=== PATIENT | male | born 1960 | race African-American/Black ===

== ENCOUNTER 2017-10-13 00:01 | Inpatient (IN) | payer MEDICARE, OTHER ==
[2017-10-13] MEDS ORDERED: methylPREDNISolone Sod Succ/PF 125 MG/2 ML VIAL ONE (00:32)
[2017-10-13 01:27] LABS: Hematocrit 40.9 % (42.0-52.0); Mean Platelet Volume 10.4 fL (7.4-10.4); Neutrophil 61 % (42-75); Red Blood Cell (RBC) Count 4.62 mill/uL (4.70-6.10); White Blood Cell (WBC) Count 7.2 thou/uL (4.8-10.8)
[2017-10-13 01:32] LABS: ALT (SGPT) 8 U/L (8-55); AST (SGOT) 10 U/L (5-34); Alkaline Phosphatase 180 U/L (40-150); Anion Gap 21 mmol/L (10-20); BUN (Urea Nitrogen) 52 mg/dL (8.4-25.7); Bilirubin, Total 1.6 mg/dL (0.2-1.2); CK (CPK) 46 U/L (30-200); Calc. Creatinine Clearance 0 mL/min (70-130); Calcium 9.9 mg/dL (7.8-10.44); Carbon Dioxide 22 mmol/L (22-29); Chloride 100 mmol/L (98-107); Estimated GFR-MDRD 8; Globulin 4.5 g/dL (2.4-3.5); Protein, Total 8.3 g/dL (6.0-8.3)
[2017-10-13 01:34] LABS: Troponin I 0.083 ng/mL (< 0.028)
[2017-10-13] MEDS ORDERED: Furosemide 40 MG/4 ML VIAL ONE (02:17)
[2017-10-13] MEDS ORDERED: Nitroglycerin 2% Ointment 1 INCH/1 GM Packet ONE (03:39)
[2017-10-13] MEDS ORDERED: Furosemide 20 MG/2 ML VIAL ONE (03:53)
[2017-10-13 04:57] LABS: Troponin I 0.082 ng/mL (< 0.028)
[2017-10-13 05:36] VITALS: BMI 31.1
[2017-10-13 06:41] LABS: Amphetamine Not Detected (NotDetected); Methadone Not Detected (NotDetected); Methamphetamine Not Detected (NotDetected)
[2017-10-13] MEDS ORDERED: Acetaminophen 650 MG Suppository PR PRN (07:22)
[2017-10-13] MEDS ORDERED: Acetaminophen 325 MG TAB PO PRN (07:22)
[2017-10-13] MEDS ORDERED: Nitroglycerin 0.4 MG TAB (25 Tab Bottle) PO PRN (07:22)
[2017-10-13] MEDS ORDERED: Dextrose 50% Abboject 50 ML SYRINGE SLOW IVP PRN (07:43)
[2017-10-13] MEDS ORDERED: HumaLOG 300 UNITS/3 ML VIAL SC PRN (07:43)
[2017-10-13] MEDS ORDERED: Dextrose 5% in Water 1,000 ML IV PRN (07:43)
--- NOTE | 2017-10-13 08:07 | RAD ---
EXAM: ONE VIEW CHEST: COMPARISON: 06/26/17. HISTORY: Chest pain. FINDINGS: Portable upright chest demonstrates a left-sided transvenous pacemaker. The ventricular lead is inco mpletely evaluated. Heart is enlarged. The pulmonary vessels are slightly prominent. Costophrenic angles are clear. No mass. No consolidation. No pneumothorax or osseous abnormalities. Stent projects over the right arm. IMPRESSION: Cardiomegaly. No evidence of congestive heart failure. POS: [facility]
--- NOTE | 2017-10-13 08:18 | HP ---
PRIMARY CARE PHYSICIAN: None. TERRITORY ACCOUNT MANAGER: Dr. Brandon August. CHIEF COMPLAINT: Chest pain. HISTORY OF PRESENT ILLNESS: Mr. Guy is a pleasant 57-year-old gentleman who was seen at [facility] on 10/13/2017. He is a vague historian. He reports missing hemodialysis yesterday. He also reports having chest pa in that started yesterday morning. He reports that it is over the left side of his chest, sharp, 10/ 10 at its worst, nonradiating, on and off, no known aggravating or relieving factors, accompanied by shortness of breath, not accompanied by nausea, vomiting or lightheadedness. REVIEW OF SYSTEMS: The following complete review of systems was negative, unless otherwise mentioned in the HPI or below: Constitutional: Weight loss or gain, sense of well-being, ability to conduct usual activities, exerc ise tolerance. Skin/Breast: Rash, itching, changes in hair growth or loss, nail changes, breast lumps, tenderness, swelling, nipple discharge. Eyes: Vision, double vision, tearing, blind spots, pain. ENT/Mouth: Headaches (location, time of onset, duration, precipitating factors), vertigo, lightheade dness, injury. Vision, double vision, tearing, blind spots, pain, nose bleeding, colds, obstruction, discharge, dental difficulties, gingival bleeding, dentures, neck stiffness, pain, tenderness, masses in thyroid or other areas. Cardiovascular: Precordial pain, substernal distress, palpitations, syncope, dyspnea on exertion, or thopnea, nocturnal paroxysmal dyspnea, edema, cyanosis, hypertension, heart murmurs, varicosities, ph lebitis, claudication. Respiratory: Pain, shortness of breath, wheezing, stridor, cough, hemoptysis, fever or night sweats. Gastrointestinal: Poor appetite, dysphagia, indigestion, abdominal pain, heartburn, eructation, naus ea, vomiting, hematemesis, jaundice, constipation, or diarrhea, abnormal stools (kan-colored, tarry, bloody, greasy, foul smelling), flatulence, hemorrhoids, recent changes in bowel habits. Genitourinary: Urgency, frequency, dysuria, nocturia, hematuria, polyuria, oliguria, unusual (or celia nge in) color of urine, stones, hesitancy, change in size of stream, dribbling, acute retention or in continence, libido, potency. Musculoskeletal: Pain, swelling, redness or heat of muscles or joints, limitation, of motion, muscul ar weakness, atrophy, cramps. Neurologic/Psychiatric: Convulsions, paralyses, tremor, incoordination, paresthesias, difficulties w ith memory of speech, sensory or motor disturbances, or muscular coordination (ataxia, tremor), emoti onal problems, anxiety, depression, previous psychiatric care, unusual perceptions, hallucinations. Allergy/Immunologic: Skin rash, anemia, bleeding tendency, polydipsia, polyuria, intolerance to heat or cold. PAST MEDICAL HISTORY: Significant for end-stage renal disease, on hemodialysis Tuesday, Tuesday, ; diabetes mellitus; hypertension; gout; obesity; obstructive sleep apnea syndrome; cerebrovascul ar disease; and COPD. PAST SURGICAL HISTORY: Significant for AICD placement and AV fistula. FAMILY HISTORY: Significant for hypertension and diabetes. SOCIAL HISTORY: The patient reports smoking more than 1 pack of cigarettes a day. He also reports u sing recreational drugs. When asked which ones, he responds "all of them". He reports occasional al cohol use. ALLERGIES: He has no known drug allergies. CURRENT MEDICATIONS: Metformin 1000 mg 2 times a day, nadolol 40 mg daily, Zofran p.r.n., spironolac tone 50 mg daily, Lasix 20 mg 2 times a day, Xifaxan 550 mg daily, lactulose 2 times a day, glipizide 10 mg daily, quinapril 40 mg daily. PHYSICAL EXAMINATION: GENERAL: Mr. Guy is awake and alert, not in acute distress. He is obese. VITAL SIGNS: Blood pressure is 161/91, pulse is 79, he is breathing at rate of 22 and saturating 100 % on 2 liters of oxygen. He is afebrile. EYES: No scleral icterus. No conjunctival pallor. ENT: Moist mucosal membranes, no oropharyngeal erythema or exudates. NECK: Supple, nontender, normal range of movement. Trachea is midline. RESPIRATORY: Accessory muscles of breathing are not active. Chest wall movements are symmetric bila terally. LUNG: Reveals a few bibasilar crackles. CARDIOVASCULAR: S1 and S2 are heard, regular. Peripheral pulses are palpable. No carotid bruit, no pericardial rub. ABDOMEN: Distended, nontender, bowel sounds heard, no hepatomegaly, no splenomegaly. NEUROLOGIC: Cranial nerves II through XII are intact. Deep tendon reflexes are 2+. MUSCULOSKELETAL: Power is 5/5 in all 4 extremities. Bilateral lower extremity edema. SKIN: No rashes or subcutaneous nodules. PSYCHIATRIC: Normal mood, normal affect, patient is oriented to person and place, not to time. LYMPHATIC: No cervical lymphadenopathy. LABORATORY DATA AND IMAGING: Mr. Guy's labs and investigations were reviewed. I reviewed his e lectrocardiogram, which shows normal sinus rhythm, no ST changes to suggest an acute coronary syndrom e. I also reviewed his chest x-ray, which shows mild interstitial edema. Laboratory investigation s how normal white count, normocytic anemia with hemoglobin 13.5, thrombocytopenia with platelet count 114,000, last known platelet count 100,000 on 06/26/2017, normal electrolytes, elevated blood urea ni trogen at 52, elevated creatinine at 8.35, elevated total bilirubin 1.6, normal AST, normal ALT, elev ated alkaline phosphatase 180, last known alkaline phosphatase level 91 on 06/26/2017, indeterminate troponin I of 0.082, elevated BNP of 1808 and urine toxicology screen positive for cocaine metabolite s. ASSESSMENT AND PLAN: Mr. Guy is a pleasant 57-year-old gentleman who was seen at [facility] on 10/13/2017. His problem list includes: 1. Chest pain: The etiology is unclear. We will admit Mr. Guy to the hospital for telemetry m onitoring on observation status. We will check stress test. 2. Shortness of breath: Most likely secondary to volume overload. We will consult Nephrology for h emodialysis. 3. End-stage renal disease on hemodialysis. We will consult Nephrology for maintenance dialysis, ila evans has missed hemodialysis. 4. Tobacco abuse: Patient has been counseled regarding tobacco cessation. We will start him on charlee otine replacement therapy. 5. Recreational drug abuse: Patient has been counseled regarding cessation of recreational drugs. 6. Diabetes mellitus. Continue home medications, start Accu-Cheks and insulin sliding scale. 7. Hypertension: Monitor vital signs, titrate antihypertensives as needed. Many thanks for allowing me to participate in your patient's care. Please feel free to contact me wi th any questions or concerns. LEVEL OF RISK: High. LEVEL OF COMPLEXITY: High.
[2017-10-13 08:26] LABS: Troponin I 0.067 ng/mL (< 0.028)
[2017-10-13] MEDS: Nicotine 21 MG PATCH TD SCH (13:08)
[2017-10-13] MEDS: Heparin 5,000 UNITS/ML VIAL SC SCH ×3 (13:08→20:11)
[2017-10-14 05:03] LABS: #Basophils 0.1 thou/uL (0.0-0.2); #Eosinphils 0.1 thou/uL (0.0-0.7); #Lymphocytes 0.9 thou/uL (1.20-3.40); #Monocytes 0.9 thou/uL (0.11-0.59); #Neutrophils 4.6 thou/uL (1.40-6.50); %Eosinophils 1.7 % (0.0-10.0); %Lymphocytes 14.1 % (21.0-51.0); Hematocrit 38.9 % (42.0-52.0); Mean Platelet Volume 10.5 fL (7.4-10.4); Red Blood Cell (RBC) Count 4.42 mill/uL (4.70-6.10); White Blood Cell (WBC) Count 6.6 thou/uL (4.8-10.8)
[2017-10-14 05:12] LABS: Anion Gap 17 mmol/L (10-20); BUN (Urea Nitrogen) 47 mg/dL (8.4-25.7); Calc. Creatinine Clearance 15 mL/min (70-130); Calcium 9.5 mg/dL (7.8-10.44); Carbon Dioxide 25 mmol/L (22-29); Chloride 98 mmol/L (98-107); Estimated GFR-MDRD 10
--- NOTE | 2017-10-14 05:53 | CON ---
DATE OF CONSULTATION: 10/13/2017 CONSULTING PHYSICIAN: Brandon August MD REQUESTING PHYSICIAN: Giovanni Goodrich M.D. REASON FOR CONSULTATION: The need for maintenance hemodialysis. IMPRESSION: 1. End-stage renal disease, hemodialysis dependent Tuesday, Tuesday, Tuesday, skipped his dialysis y . 2. Chest pain likely in the context of missed dialysis plus or minus substance abuse. 3. Hypertension. PLAN: 1. The patient to be dialyzed today and then subsequently by tomorrow. He will revert back to his n ormal schedule of Tuesday, Tuesday, and Tuesday. 2. Counseling on the need to avoid illicit drug use, though the patient denied use of the cocaine th at he tested positive to. HISTORY OF PRESENT ILLNESS: A 57-year-old gentleman with end-stage renal disease, hemodialysis depen alexandra, who presented here with chest pain. The patient missed his dialysis yesterday because of issue with transportation. The patient at this time on history taking does not have any serious new compl aint. The patient is, therefore, to be dialyzed with ultrafiltration as tolerated by hemodynamics. PAST MEDICAL HISTORY: Significant for end-stage renal disease, hemodialysis dependent, CVA with resi dual expressive aphasia, hypertension, gout, obesity, obstructive sleep apnea, COPD. MEDICATIONS: Reviewed as documented on [employer]. FAMILY HISTORY: Not significantly related to the presenting illness. ALLERGIES: No known drug allergies. SOCIAL HISTORY: Significant for tobacco use. The patient denies illicit drug use. He denies the us e of . The patient tested positive to cocaine. REVIEW OF SYSTEMS: As documented in the body of the history. All the other systems reviewed were fo und not to be significantly related to the presenting illness. PHYSICAL EXAMINATION: GENERAL: The patient was found not to be in any obvious distress. VITAL SIGNS: Noted with the following vital signs, afebrile, temperature 97.5, pulse 82, respiratory rate 16, O2 sat 96% with blood pressure 168/92. HEENT: Unremarkable. Moist oral mucosa. Neck was supple. No conjunctival injection, no icterus. CARDIOVASCULAR SYSTEM: First and second heart sounds were heard. RESPIRATORY SYSTEM: Clear to auscultation. DIGESTIVE SYSTEM: Revealed a benign abdomen with positive bowel sounds. EXTREMITIES: No peripheral edema. SKIN: No new gross rash. LYMPHATICS: No peripheral lymphadenopathy. SUMMARY: A 57-year-old gentleman with end-stage renal disease, hemodialysis dependent, who presented here with chest pain status post missed dialysis session. Thank you for this consultation. We will follow with you.
--- NOTE | 2017-10-14 08:59 | CT ---
CT OF BRAIN PERFORMED WITHOUT CONTRST ENHANCEMENT: HISTORY: Altered mental status. COMPARISON: A 01/16/11 exam. FINDINGS: There is mild ventricular and sulcal prominence. There is some encephalomalacia change in the left p osterior frontoparietal temporal region which appears fairly stable as compared to the prior exam. T here are no signs for intracerebral hemorrhage or extraaxial fluid collection. There appears to be a small old infarct in the left occipital region. IMPRESSION: Left-sided encephalomalacia change and old-appearing bilateral lacunar infarct stable. No acute intr acranial process. POS: [facility]
[2017-10-14] MEDS ORDERED: Prevnar 13-Val Conj/PF 0.5 ML SYRINGE IM ONE (09:00)
[2017-10-14] MEDS ORDERED: FLU VACC QS2017-18 36 mo. & older 0.5 ML SYRINGE IM ONE (09:00)
[2017-10-14] MEDS: Nicotine 21 MG PATCH TD SCH (12:47)
[2017-10-14] MEDS: Heparin 5,000 UNITS/ML VIAL SC SCH ×2 (12:47→21:19)
--- NOTE | 2017-10-14 13:19 | NM ---
MYOCARDIAL PERFUSION SCAN WITH SPECT IMAGING: HISTORY: Chest pain. Examination was performed using 29.7 mCi 99m Technetium sestamibi on the stress and 11 on the resting images. This shows a slightly dilated ventricle. There is evidence for some apical ischemic change . WALL MOTION: Severe hypokinesis is noted. LEFT VENTRICULAR EJECTION FRACTION: The calculated left ventricular ejection fraction was 19%. IMPRESSION: Severe global hypokinesis with findings that are suspicious for apical ischemic change extending mini kirit into the anterior wall. Left ventricular ejection fraction was 19%. Please correlate with ech ocardiogram. POS: [facility]
--- NOTE | 2017-10-14 14:53 | PDOC.PN ---
- Subjective Encounter Start Date: 10/14/17 Encounter Start Time: 14:51 Pt seen for followup re; chest pain. reports on and off chest pain, denies nausea, vomiting or diarrhea. No fevers or chills. - Objective MAR Reviewed: Yes Vital Signs & Weight: Vital Signs (12 hours) Temp Pulse Resp BP Pulse Ox 10/14/17 07:50 98.0 F 72 16 10/14/17 07:30 98.0 F 72 16 133/83 100 10/14/17 04:39 97.8 F 79 18 138/82 97 Weight Weight 211 lb 4.8 oz I&O: 10/13/17 10/14/17 10/15/17 06:59 06:59 06:59 Intake Total 100 Output Total 225 2500 Balance -125 -2500 Result Diagrams: 10/14/17 04:41 10/14/17 04:41 Additional Labs: Accuchecks 10/14/17 10/14/17 10/14/17 07:37 04:41 00:20 POC Glucose 93 141 H 137 H 10/13/17 10/13/17 20:43 17:43 POC Glucose 113 H 207 H EKG Reviewed by me: Yes (Tele: NSR) Phys Exam - Physical Examination Constitutional: NAD HEENT: PERRLA, moist MMs, sclera anicteric, oral pharynx no lesions Neck: no nodes, no JVD, supple, full ROM Respiratory: no wheezing, no rales, no rhonchi, clear to auscultation bilateral Cardiovascular: RRR, no rub Gastrointestinal: soft, non-tender, no distention, positive bowel sounds Musculoskeletal: pulses present, edema present Neurological: non-focal, normal sensation, moves all 4 limbs Lymphatic: no nodes Psychiatric: normal affect Deviation from normal: Oriented to person and place, not to time Skin: no rash, normal turgor, cap refill <2 seconds Dx/Plan (1) Chest pain Code(s): R07.9 - CHEST PAIN, UNSPECIFIED Status: Acute (2) Cocaine abuse Code(s): F14.10 - COCAINE ABUSE, UNCOMPLICATED Status: Chronic (3) ESRD on hemodialysis Code(s): N18.6 - END STAGE RENAL DISEASE; Z99.2 - DEPENDENCE ON RENAL DIALYSIS Status: Chronic (4) Essential hypertension Code(s): I10 - ESSENTIAL (PRIMARY) HYPERTENSION Status: Chronic (5) COPD exacerbation Code(s): J44.1 - CHRONIC OBSTRUCTIVE PULMONARY DISEASE W (ACUTE) EXACERBATION Status: Chronic (6) Tobacco abuse Code(s): Z72.0 - TOBACCO USE Status: Chronic - Plan DVT proph w/heparin * . Stress test showing global hypokinesis, low EF. Will order 2D echo and consult cardiology. I assessed him earlier for ? AMS. Neuro exam was nonfocal, CT report noted. Continue accuchecks, insulin. Monitor vital signs, titrate antihypertensives as needed. Continue nicotine replacement therapy. Pt counseled re: tobacco and recreational drug use cessation. Review of Systems - Review of Systems Constitutional: Other. negative: Fever, Chills, Sweats, Weakness, Malaise Respiratory: SOB with Excertion. negative: Cough, Dry, Shortness of Breath, Hemoptysis, Pleuritic Pain, Sputum, Wheezing Cardiovascular: Chest Pain. negative: Palpitations, Orthopnea, Paroxysmal Noc. Dyspnea, Edema, Light Headedness Gastrointestinal: negative: Nausea, Vomiting, Abdominal Pain, Diarrhea, Constipation, Melena, Hematochezia Genitourinary: negative: Dysuria, Frequency, Incontinence, Hematuria, Retention - Medications/Allergies Allergies/Adverse Reactions: Allergies Allergy/AdvReac Type Severity Reaction Status Date / Time No Known Drug Allergies Allergy Verified 10/13/17 05:54 Medications: Current Medications Acetaminophen (Tylenol) 650 mg PO Q4H PRN PRN Reason: Headache/Fever or Pain Acetaminophen (Tylenol) 650 mg SC Q4H PRN PRN Reason: Headache/Fever or Pain Dextrose/Water (Dextrose 50%) 25 gm SLOW IVP PRN PRN PRN Reason: Hypoglycemia Glucagon (Glucagon) 1 mg IM PRN PRN PRN Reason: Hypoglycemia Heparin Sodium (Porcine) (Heparin) 5,000 units SC BID [facility] Last Admin: 10/14/17 12:47 Dose: Not Given Dextrose/Water (D5w) 1,000 mls @ 0 mls/hr IV .Q0M PRN; As Directed PRN Reason: Hypoglycemia Insulin Human Lispro (Humalog) 0 units SC .MILD SLIDING SCALE PRN PRN Reason: Mild Correctional Scale Last Admin: 10/13/17 18:02 Dose: 4 unit Nicotine (Nicoderm Patch) 21 mg TD Q24HR [facility] Last Admin: 10/14/17 12:47 Dose: Not Given Nitroglycerin (Nitrostat) 0.4 mg PO Q5MIN PRN PRN Reason: Chest Pain
[2017-10-14] MEDS ORDERED: Regadenoson 0.4 MG/5 ML SYRINGE ONE (16:43)
--- NOTE | 2017-10-14 19:32 | CON ---
DATE OF CONSULTATION: 10/14/2017 DATE OF ADMISSION: 10/13/2017 INDICATION FOR CONSULTATION: A 57-year-old patient with severe cardiomyopathy, underwent a stress te st today after he had some chest discomfort and was found to have severe decrease in left ventricular systolic function, ejection fraction of 19% with global hypokinesis and apical possible apical ische baldo. This gentleman has end-stage renal disease on hemodialysis, he misses out since yesterday. Whe n he misses dialysis it becomes volume overload. He developed chest discomfort. He does have a hist ory of coronary artery disease; however, he underwent cardiac catheterization in 2009 which showed an ejection fraction of 20-25% with a 50% and 70% stenosis in the left anterior descending artery, 70% and 80% stenosis in the left circumflex and 60% stenosis in the right coronary artery. He was evalua kaveh at that time by CT Surgery and was deemed not a candidate to undergo bypass surgery. He then had an echocardiogram in 2011 which showed a normal ejection fraction, but then again in 05/2017 of this year, he had an ejection fraction again by echocardiogram 20- 25% with left atrial dilatation, moder ate mitral and tricuspid valve regurgitation. At this time, the ejection fraction by nuclear study i s 19%. Echocardiogram is pending. He has just finished his dialysis at this time and he says it joselyn nly when he gets volume overload, he does get some chest discomfort. He also was found to be positiv e for cocaine and has a history of illicit drug use. He does have a history of hypertension. This a ppears to be stable at this time. He also had a CT of the head which showed no acute process, but do es have evidence of old bilateral lacunar infarcts. He said he often has chest discomfort, but mainl y was associated with volume overload prior to undergoing his dialysis. PAST MEDICAL HISTORY: Significant for CVAs in 2006, end-stage renal disease for which he is on hemod ialysis, hypertension, gout, he had an AV fistula of the right arm placed. He has had old bilateral lacunar infarcts. He has obstructive sleep apnea, COPD, obesity. He has had ventricular tachycardia for which he underwent an AICD implant. He has coronary artery disease as noted above, diabetes, hy percholesterolemia, and benign prostatic hypertrophy. SOCIAL HISTORY: Unfortunately, he continues to smoke I believe. He has illicit drug use. FAMILY HISTORY: Positive for coronary artery disease. ALLERGIES: None. MEDICATIONS PRIOR TO ADMISSION: Included simvastatin, ranitidine, nortriptyline, insulin, allopurino l, furosemide, Coreg, isosorbide mononitrate, Velphoro, folic acid with vitamin B complex, Cardura an d prednisone. ALLERGIES: None. REVIEW OF SYSTEMS: He says he is almost blind. He has shortness of breath and chest discomfort as n oted above. Otherwise, his review of system is unremarkable. He pretty much stays at home and is re latively inactive at this time. PHYSICAL EXAMINATION: GENERAL: Reveals an elderly gentleman who appears actually older than his stated age. VITAL SIGNS: Blood pressure 133/83, heart rate is 72 and regular. He is afebrile, respiratory rate 16. HEENT: Shows head to be normocephalic and atraumatic. I did not hear any carotid bruits at this spring e. There is no obvious JVD. He is sitting upright after dialysis; however. CHEST: Clear to auscultation. I do not hear any rales, rhonchi or wheezing. CARDIOVASCULAR: Reveals a regular rate and rhythm. I did not hear any significant murmurs, heaves, thrills, bruits or rubs. He has a well healed surgical incision on left infraclavicular area after A ICD implant. ABDOMEN: Soft and nontender. Positive bowel sounds are present. EXTREMITIES: Showed no clubbing or cyanosis. I cannot palpate popliteal or pedal pulses. NEUROLOGIC: The patient is somewhat slow to answer questions due to his previous CVAs and he is over all with generalized fatigue and weakness. SKIN: At this time is warm and dry except lower extremities which appear to be cool. LABORATORY AND DIAGNOSTIC STUDY: EKG shows a normal sinus rhythm with a right bundle branch block and no acute changes. Cardiac enzym es show troponin I of 0.083, which is now decreased down the 0.067. His creatinine was 7.14, hemoglo bin 12.7, WBC is 6.6. Potassium was 4.8. Chest x-ray shows some cardiomegaly but no signs of conges tive heart failure. IMPRESSION: 1. Chest pain in this gentleman with end-stage renal disease which is a frequent problem for him whe n he is volume overloaded. He admits that he has chest discomfort, but no significant EKG changes. The enzymes most likely are elevated due to demand ischemia, which would not be unusual in this gentl eman with severe three-vessel coronary artery disease for which he has been deemed not a candidate fo r bypass surgery. It is unlikely he will be a candidate also for any type of intervention, we would continue medical management. We will try to manage his medications as much as possible, but most lik taj he would just need to be more compliant with his dialysis and volume overloaded and to prevent vo lume overload. 2. History of coronary disease, which appears to be overall relatively stable despite having severe three-vessel coronary artery disease. 3. History of cerebrovascular accident in the past, making it difficult for the patient to communica te. 4. History of hypertension which is under relatively good control at this time. 5. Chronic obstructive pulmonary disease. This is to be followed by the primary care service. 6. Diabetes. This also appears to be relatively well controlled with a blood sugar of 141. 7. History of possible ischemia. Again, this would not be unusual in this patient with severe three -vessel coronary artery disease which underwent cardiac catheterization 7 years ago. We will continu e his medical management at this time. We will need to perhaps modify his medications as much as pos yusuf. I can possibly increase his nitroglycerin or his long-acting nitrates if it all possible. I do not know whether or not he would be a candidate for Ranexa. If he would be able to afford this me dication or not or whether he will be compliant with taking it. As long as he remains chest pain renetta e after his dialysis, then he would be able to most likely be discharge to home within the next 24 ho urs. I would suggest he follow Dr. Tellez within the next 1-2 months.
--- NOTE | 2017-10-14 23:50 | PRG ---
DATE OF SERVICE: 10/14/2017 SUBJECTIVE: The patient was seen and examined today at dialysis with no new complaint and noted with the following vital signs. PHYSICAL EXAMINATION: VITAL SIGNS: Afebrile, respiratory rate of 18, O2 saturation of 96%, blood pressure 138/82. HEENT EXAMINATION: Unremarkable with moist oral mucosa. Neck was supple. No conjunctival injection or icterus. CARDIOVASCULAR SYSTEM: First and second heart sounds were heard. RESPIRATORY SYSTEM: Clear to auscultation. DIGESTIVE SYSTEM: Revealed a benign abdomen with positive bowel sounds. EXTREMITIES: No peripheral edema. SKIN EXAMINATION: No new gross rash. LYMPHATICS: No peripheral lymphadenopathy. IMPRESSION: 1. End-stage renal disease, hemodialysis dependent. 2. Cardiomyopathy, query cause. 3. Hypertension. 4. Illicit drug abuse. PLAN: 1. The patient counseled on the need to discontinue illicit drug use. the patient denies use of it. 2. Renal replacement therapy (hemodialysis) as by the patient's schedule. 3. From the renal standpoint, the patient is good for discharge.
[2017-10-15 05:18] LABS: #Basophils 0.1 thou/uL (0.0-0.2); #Eosinphils 0.9 thou/uL (0.0-0.7); #Monocytes 0.7 thou/uL (0.11-0.59); #Neutrophils 3.6 thou/uL (1.40-6.50); %Basophils 0.8 % (0.0-1.0); %Eosinophils 13.9 % (0.0-10.0); %Lymphocytes 15.6 % (21.0-51.0); %Monocytes 11.7 % (0.0-10.0); Hematocrit 38.9 % (42.0-52.0); Mean Platelet Volume 10.6 fL (7.4-10.4); Red Blood Cell (RBC) Count 4.42 mill/uL (4.70-6.10); White Blood Cell (WBC) Count 6.2 thou/uL (4.8-10.8)
[2017-10-15 05:40] LABS: Anion Gap 15 mmol/L (10-20); BUN (Urea Nitrogen) 34 mg/dL (8.4-25.7); Calc. Creatinine Clearance 19 mL/min (70-130); Calcium 9.4 mg/dL (7.8-10.44); Carbon Dioxide 28 mmol/L (22-29); Chloride 100 mmol/L (98-107); Estimated GFR-MDRD 13
[2017-10-15] MEDS ORDERED: Carvedilol 6.25 MG TAB PO SCH (09:00)
--- NOTE | 2017-10-15 09:08 | PRG ---
DATE OF SERVICE: 10/15/2017 SUBJECTIVE: Mr. Guy states he is not breathing very well. He has no chest pain. PHYSICAL EXAMINATION: VITAL SIGNS: His blood pressure is high at 152/87, pulse 80, it is regular. LUNGS: Clear but the respiratory rate is elevated mildly. CARDIAC: Normal S1 and normal S2. ABDOMEN: Soft, nontender. EXTREMITIES: There is only mild edema. ASSESSMENT: 1. Congestive heart failure, systolic, chronic. 2. End-stage renal disease. 3. Hypertension. 4. Coronary artery disease. PLAN: 1. Carvedilol. 2. Add hydralazine. 3. He is on subcutaneous heparin. 4. Dialysis again tomorrow. 5. Begin aspirin.
[2017-10-15] MEDS: Aspirin 81 mg Enteric Coated Tablet PO SCH (09:23)
[2017-10-15] MEDS: Heparin 5,000 UNITS/ML VIAL SC SCH ×2 (09:23→20:55)
[2017-10-15] MEDS: Nicotine 21 MG PATCH TD SCH (09:24)
--- NOTE | 2017-10-15 11:08 | PDOC.PN ---
- Subjective Encounter Start Date: 10/15/17 Encounter Start Time: 07:20 Pt seen for followup re: chronic systolic CHF. Reports SOBOE. No nausea or vomiting. Chest pain better. - Objective MAR Reviewed: Yes Vital Signs & Weight: Vital Signs (12 hours) Temp Pulse Resp BP Pulse Ox 10/15/17 08:45 97.8 F 75 16 10/15/17 08:05 97.8 F 75 16 139/73 100 10/15/17 04:00 98.6 F 80 20 152/87 H 100 Weight Weight 185 lb I&O: 10/14/17 10/15/17 10/16/17 06:59 06:59 06:59 Intake Total 360 Output Total 2500 Balance -2500 360 Result Diagrams: 10/15/17 04:53 10/15/17 04:53 Additional Labs: Accuchecks 10/15/17 10/14/17 10/14/17 06:04 20:51 16:47 POC Glucose 90 144 H 88 EKG Reviewed by me: Yes (Tele: NSR) Phys Exam - Physical Examination Constitutional: NAD HEENT: moist MMs, oral pharynx no lesions Neck: supple Bibasal crackles Cardiovascular: RRR Gastrointestinal: soft, non-tender Musculoskeletal: pulses present, edema present Neurological: moves all 4 limbs Lymphatic: no nodes Psychiatric: normal affect Skin: no rash Dx/Plan (1) Chronic systolic heart failure Code(s): I50.22 - CHRONIC SYSTOLIC (CONGESTIVE) HEART FAILURE Status: Chronic (2) ESRD on hemodialysis Code(s): N18.6 - END STAGE RENAL DISEASE; Z99.2 - DEPENDENCE ON RENAL DIALYSIS Status: Chronic (3) Essential hypertension Code(s): I10 - ESSENTIAL (PRIMARY) HYPERTENSION Status: Chronic (4) Cocaine abuse Code(s): F14.10 - COCAINE ABUSE, UNCOMPLICATED Status: Chronic (5) COPD exacerbation Code(s): J44.1 - CHRONIC OBSTRUCTIVE PULMONARY DISEASE W (ACUTE) EXACERBATION Status: Chronic (6) Tobacco abuse Code(s): Z72.0 - TOBACCO USE Status: Chronic (7) Chest pain Code(s): R07.9 - CHEST PAIN, UNSPECIFIED Status: Resolved - Plan PT/OT, out of bed/ambulate, DVT proph w/heparin * . Appreciate cardiology input. Pt is on betablocker, not on ACEI/ARB due to renal failure. Dialysis per nephrology service. Continue nicotine replacement therapy. Likely home 1-2 days. Review of Systems - Review of Systems Constitutional: negative: Fever, Chills, Sweats, Weakness, Malaise Cardiovascular: negative: Chest Pain, Palpitations, Orthopnea, Paroxysmal Noc. Dyspnea, Edema, Light Headedness Gastrointestinal: negative: Nausea, Vomiting, Abdominal Pain, Diarrhea, Constipation, Melena, Hematochezia - Medications/Allergies Allergies/Adverse Reactions: Allergies Allergy/AdvReac Type Severity Reaction Status Date / Time No Known Drug Allergies Allergy Verified 10/13/17 05:54 Medications: Current Medications Acetaminophen (Tylenol) 650 mg PO Q4H PRN PRN Reason: Headache/Fever or Pain Acetaminophen (Tylenol) 650 mg UT Q4H PRN PRN Reason: Headache/Fever or Pain Aspirin (Ecotrin) 81 mg PO DAILY [facility] Last Admin: 10/15/17 09:23 Dose: 81 mg Atorvastatin Calcium (Lipitor) 20 mg PO HS [facility] Carvedilol (Coreg) 6.25 mg PO BID-[facility] Dextrose/Water (Dextrose 50%) 25 gm SLOW IVP PRN PRN PRN Reason: Hypoglycemia Glucagon (Glucagon) 1 mg IM PRN PRN PRN Reason: Hypoglycemia Heparin Sodium (Porcine) (Heparin) 5,000 units SC BID [facility] Last Admin: 10/15/17 09:23 Dose: 5,000 units Hydralazine HCl (Apresoline) 25 mg PO BID [facility] Hydralazine HCl (Apresoline) 25 mg PO 1700 [facility] Stop: 10/15/17 21:00 Dextrose/Water (D5w) 1,000 mls @ 0 mls/hr IV .Q0M PRN; As Directed PRN Reason: Hypoglycemia Insulin Human Lispro (Humalog) 0 units SC .MILD SLIDING SCALE PRN PRN Reason: Mild Correctional Scale Last Admin: 10/13/17 18:02 Dose: 4 unit Nicotine (Nicoderm Patch) 21 mg TD Q24HR [facility] Last Admin: 10/15/17 09:24 Dose: 21 mg Nitroglycerin (Nitrostat) 0.4 mg PO Q5MIN PRN PRN Reason: Chest Pain
[2017-10-15] MEDS ORDERED: hydrALAZINE 25 MG TAB PO SCH (17:00)
[2017-10-15] MEDS: Carvedilol 6.25 MG TAB PO SCH (17:42)
[2017-10-15] MEDS ORDERED: Atorvastatin Calcium 20 MG TAB PO SCH (21:00)
[2017-10-16 05:43] LABS: Anion Gap 16 mmol/L (10-20); BUN (Urea Nitrogen) 48 mg/dL (8.4-25.7); Calc. Creatinine Clearance 14 mL/min (70-130); Calcium 9.4 mg/dL (7.8-10.44); Carbon Dioxide 30 mmol/L (22-29); Chloride 95 mmol/L (98-107); Estimated GFR-MDRD 10
[2017-10-16 05:45] LABS: #Eosinphils 1.3 thou/uL (0.0-0.7); #Lymphocytes 0.7 thou/uL (1.20-3.40); #Monocytes 0.6 thou/uL (0.11-0.59); #Neutrophils 2.5 thou/uL (1.40-6.50); %Basophils 0.7 % (0.0-1.0); %Eosinophils 24.3 % (0.0-10.0); %Lymphocytes 14.2 % (21.0-51.0); Hematocrit 40.1 % (42.0-52.0); Mean Platelet Volume 11.2 fL (7.4-10.4); Red Blood Cell (RBC) Count 4.54 mill/uL (4.70-6.10); White Blood Cell (WBC) Count 5.2 thou/uL (4.8-10.8)
--- NOTE | 2017-10-16 07:12 | PRG ---
DATE OF SERVICE: 10/15/2017 SUBJECTIVE: The patient was seen and examined today with no new complaints and noted with the follow ing. OBJECTIVE: VITAL SIGNS: Afebrile with a temperature of 97.8, pulse 75, respiratory rate of 16, blood pressure 1 39/73 with O2 sat 100%. HEENT: Unremarkable with moist oral mucosa. No conjunctival injection or icterus. NECK: Supple. CARDIOVASCULAR SYSTEM: First and second heart sounds were heard. RESPIRATORY SYSTEM: Clear to auscultation. DIGESTIVE SYSTEM: Reviewed a benign abdomen with positive bowel sounds. EXTREMITIES: No peripheral edema. SKIN: No new gross rash. LYMPHATICS: No peripheral lymphadenopathy. IMPRESSION: 1. End-stage renal disease, hemodialysis dependent. 2. Chest pain, which has since resolved, status post hemodialysis with ultrafiltration. PLAN: 1. From the renal standpoint, the patient is good for discharge. 2. If patient remains here till Tuesday, the patient will undergo hemodialysis; otherwise from the re nal standpoint, the patient is good for discharge.
[2017-10-16] MEDS: Carvedilol 6.25 MG TAB PO SCH (08:54)
[2017-10-16] MEDS: Heparin 5,000 UNITS/ML VIAL SC SCH (08:54)
[2017-10-16] MEDS: Aspirin 81 mg Enteric Coated Tablet PO SCH (08:54)
[2017-10-16] MEDS: Nicotine 21 MG PATCH TD SCH (08:58)
[2017-10-16] MEDS ORDERED: hydrALAZINE 25 MG TAB PO SCH (09:00)
--- NOTE | 2017-10-16 09:17 | PRG ---
DATE OF SERVICE: 10/16/2017 SUBJECTIVE: Mr. Guy is doing better today, looks brighter, he is breathing much easier. PHYSICAL EXAMINATION: VITAL SIGNS: Blood pressure 129/81, pulse 60, regular. LUNGS: Clear. CARDIAC: Normal S1 and normal S2. ABDOMEN: Soft and nontender. ASSESSMENT: 1. Congestive heart failure, systolic, acute on chronic, improved. 2. End-stage renal disease, unchanged. 3. Hypertension, improved. PLAN: Okay with me to be released home. Follow up with Dr. Tellez as an outpatient.
[2017-10-16 12:21] VITALS: BP 126/71; TEMP 97.5
--- NOTE | 2017-10-16 14:52 | DIS ---
DATE OF ADMISSION: 10/13/2017 DATE OF DISCHARGE: 10/16/2017 PRIMARY CARE PHYSICIAN: Dr. Deric Llamas. DISCHARGE DIAGNOSES: 1. Chest pain. 2. Acute on chronic congestive heart failure, systolic. CONSULTATIONS DURING THIS HOSPITALIZATION: Cardiology, Dr. Marie and Nephrology, Dr. Brandon winters. CONDITION OF PATIENT AT THE TIME OF DISCHARGE: Stable. I assess Mr. Guy on the day of discharg e. He denies any chest pain or shortness of breath. He denies any fevers or chills. PHYSICAL EXAMINATION: VITAL SIGNS: Stable. HEART: S1 and S2 are heard, regular. LUNGS: Clear to auscultation bilaterally. DISCHARGE MEDICATIONS: Allopurinol 100 mg daily, aspirin 81 mg daily, atorvastatin 20 mg at bedtime, Coreg 6.25 mg 2 times a day, doxazosin 8 mg daily, folic acid/vitamin B complex 1 tablet daily, Lasi x 40 mg 2 times a day, NPH insulin 10 units in the evening and 20 units in the morning, Imdur 60 mg d aily, Nicotine patch 21 mg daily, Nortriptyline 25 mg daily, ranitidine 150 mg 2 times a day, sucrofe rric oxyhydroxide 500 mg 3 times a day. HOSPITAL COURSE: Mr. Guy is a pleasant 57-year-old gentleman who was admitted to [facility] on 10/13/2017 for chest discomfort after missing hemodialysis. He was seen by Ne phrology Service. He underwent maintenance hemodialysis. Because of concern over mental status edwards ges, he had a CT scan of the brain, which was unremarkable, done without contrast. Nuclear stress test on 10/14/2017 showed severe global hypokinesis with findings suspicious for apica l ischemic changes extending minimally into the anterior wall, with left ventricular ejection fractio n of 19%. A 2D echocardiogram done on 10/15/2017 showed severely increased left ventricular size, wi th ejection fraction estimated at 20%-25%. He also had moderate to severe mitral regurgitation. He was seen by Cardiology Service. He has been started on aspirin and statin. At the time of admission, his urine drug screen was positive for cocaine metabolites. He has been ad vised to stop cocaine use and tobacco use. He is advised to follow up with his primary care provider in 3-5 days. He is also advised to follow up with his internet media planner, Dr. Tellez as outpatient. On the day of discharge, he has a white count of 5200, hemoglobin 12.8, platelet count 116,000. Sodi um 136, potassium 4.9, and creatinine 7.03. Many thanks for allowing me to participate in your patient's care. Please feel free to contact me wi th any questions or concerns. DISCHARGE DESTINATION: Home. TOTAL AMOUNT OF TIME SPENT COORDINATING THIS DISCHARGE: 33 minutes.
== END 2017-10-16 16:28 | disposition home or self-care (01) | DRG 640 ==
LOC: ERS 00:01 → 2SW 03:30 → 2NO 10-14 15:18
PROVIDERS: ADMIT Internal Medicine; ATTEND Internal Medicine
PROC: 5A1D70Z Performance of Urinary Filtration, Intermittent, Less than 6 Hours Per Day (ICD-10-PCS; principal; 2017-10-13)
DX: E87.70 Fluid overload, unspecified (principal); N18.6 End stage renal disease; I50.23 Acute on chronic systolic (congestive) heart failure; I42.9 Cardiomyopathy, unspecified; E11.22 Type 2 diabetes mellitus with diabetic chronic kidney disease; J44.1 Chronic obstructive pulmonary disease with (acute) exacerbation; I13.2 Hypertensive heart and chronic kidney disease with heart failure and with stage 5 chronic kidney disease, or end stage renal disease; Z99.2 Dependence on renal dialysis; Z91.15 Patient's noncompliance with renal dialysis; Z86.73 Personal history of transient ischemic attack (TIA), and cerebral infarction without residual deficits; Z95.810 Presence of automatic (implantable) cardiac defibrillator; Z72.0 Tobacco use; I34.0 Nonrheumatic mitral (valve) insufficiency; F14.10 Cocaine abuse, uncomplicated
CPT/HCPCS: 36415; 36416; 70450; 71010; 78452; 80048; 80053; 80306; 82550; 82553; 83880; 84484; 85025; 87340; 90935; 93005; 93017; 93306; 93798; 94640; 94760; 96361; 96374; 96375; 96376; A9500; G0257; J1644; J1940; J2785; J2930; J7620

== ENCOUNTER 2017-10-23 22:10 | Observation (INO) | payer MEDICARE, OTHER ==
[2017-10-23 23:02] LABS: #Basophils 0.1 thou/uL (0.0-0.2); #Eosinphils 0.4 thou/uL (0.0-0.7); #Lymphocytes 0.5 thou/uL (1.20-3.40); #Monocytes 0.5 thou/uL (0.11-0.59); #Neutrophils 4.5 thou/uL (1.40-6.50); %Basophils 1.5 % (0.0-1.0); %Eosinophils 5.9 % (0.0-10.0); %Monocytes 8.3 % (0.0-10.0); Hematocrit 41.5 % (42.0-52.0); Mean Platelet Volume 11.6 fL (7.4-10.4); Red Blood Cell (RBC) Count 4.75 mill/uL (4.70-6.10)
[2017-10-23 23:19] LABS: ALT (SGPT) 7 U/L (8-55); AST (SGOT) 9 U/L (5-34); Alkaline Phosphatase 157 U/L (40-150); Anion Gap 21 mmol/L (10-20); BUN (Urea Nitrogen) 82 mg/dL (8.4-25.7); Bilirubin, Total 1.6 mg/dL (0.2-1.2); Calc. Creatinine Clearance 0 mL/min (70-130); Calcium 9.4 mg/dL (7.8-10.44); Carbon Dioxide 16 mmol/L (22-29); Chloride 108 mmol/L (98-107); Estimated GFR-MDRD 7; Globulin 4.4 g/dL (2.4-3.5)
[2017-10-23 23:29] LABS: Troponin I 0.142 ng/mL (< 0.028)
[2017-10-24] MEDS ORDERED: Insulin Regular 300 UNITS/3 ML VIAL ONE ×2 (00:26→02:14)
[2017-10-24] MEDS ORDERED: Dextrose 50% Abboject 50 ML SYRINGE ONE ×2 (00:26→02:14)
[2017-10-24 01:30] LABS: Troponin I 0.154 ng/mL (< 0.028)
[2017-10-24 01:44] LABS: Anion Gap 22 mmol/L (10-20); BUN (Urea Nitrogen) 87 mg/dL (8.4-25.7); Calc. Creatinine Clearance 0 mL/min (70-130); Calcium 9.1 mg/dL (7.8-10.44); Carbon Dioxide 15 mmol/L (22-29); Chloride 111 mmol/L (98-107); Estimated GFR-MDRD 6
[2017-10-24] MEDS ORDERED: Ondansetron HCl/PF 4 MG/2 ML Vial IVP PRN (05:08)
[2017-10-24] MEDS ORDERED: Acetaminophen 325 MG TAB PO PRN ×2 (05:08→05:14)
[2017-10-24] MEDS ORDERED: Ondansetron ODT 4 MG TAB SL PRN (05:08)
[2017-10-24] MEDS ORDERED: Sodium Chloride 0.9% 1,000 ML IV SCH (05:08)
[2017-10-24] MEDS ORDERED: HYDROcodone/Acetaminophen 10/325 mg Tablet PO PRN (05:14)
[2017-10-24] MEDS ORDERED: Dextrose 50% Abboject 50 ML SYRINGE SLOW IVP PRN (05:14)
[2017-10-24] MEDS ORDERED: Dextrose 5% in Water 1,000 ML IV PRN (05:14)
[2017-10-24] MEDS ORDERED: Ondansetron ODT 4 MG TAB PO PRN (05:14)
[2017-10-24] MEDS ORDERED: HumaLOG 300 UNITS/3 ML VIAL SC PRN (05:14)
[2017-10-24] MEDS ORDERED: HYDROcodone/Acetaminophen 5/325 mg Tablet PO PRN (05:14)
[2017-10-24 05:34] VITALS: BMI 29.3
[2017-10-24] MEDS: Sodium Chloride 0.9% 1,000 ML IV SCH (05:46)
--- NOTE | 2017-10-24 06:00 | HP ---
PRIMARY CARE PHYSICIAN: Dr. Deric Llamas PRIMARY FOREST NURSERY SUPERVISOR: Dr. Brandon August CHIEF COMPLAINT: Diarrhea and nausea. HISTORY OF PRESENT ILLNESS: Mr. Guy is a 57-year-old male with a history of end-stage r enal disease on dialysis, hypertension, diabetes and CHF [facility] without vomiting and diarrhea. Basically he has felt nauseated for about 48 hours, but had 24 hours now of persistent diarrhea. He was able to go to dialysis on Tuesday one day prior to this beginning. The patient continued to have diarrheal bowel movements and felt weak so he presented to the emergenc y department. He complained of having some chest pain, sharp and stabbing to the chest just today on ly. The patient was recently admitted a couple weeks ago for chest pain, he underwent a stress test that was abnormal and was seen by Dr. Marie and by Dr. Martinez. Due to multiple comorbidities, the patient was felt not to be a candidate for intervention and is being medically managed. In the emergency department, he was noted to have a potassium of 5.2. Labs were otherwise okay. Rep eat BMP showed a potassium up to 5.8. Troponin I went from 0.14 to 0.15. We were called for admissi on. PAST MEDICAL HISTORY: 1. Congestive heart failure, last EF of 15-20%. 2. Diabetes mellitus type 2. 3. Hyperlipidemia. 4. Hypertension. 5. End-stage renal disease, on hemodialysis Tuesday, Tuesday, and Tuesday. 6. Cerebral vascular disease with history of stroke. PAST SURGICAL HISTORY: 1. Right arm fistula. 2. AICD placement. HOME MEDICATIONS: 1. Metformin 1000 mg p.o. b.i.d. 2. Nadolol 40 mg p.o. daily. 3. Zofran ODT 2 mg p.o. b.i.d. 4. Aldactone 50 mg p.o. daily. 5. Lasix 20 mg p.o. b.i.d. 6. Xifaxan 550 mg p.o. daily. 7. Lactulose 10 mg p.o. b.i.d. 8. Glipizide 10 mg daily. 9. Quinapril 40 mg daily. ALLERGIES: NKDA. FAMILY HISTORY: Negative for clotting or bleeding disorder, no immune dysfunction. SOCIAL HISTORY: Currently negative for habits x3. REVIEW OF SYSTEMS: A 10-point review of systems was performed and is negative for all systems except as stated as per HPI. PHYSICAL EXAMINATION: VITAL SIGNS: Temperature 98.4, pulse 81, blood pressure 133/77, respiratory rate 22, satting 94% on room air. GENERAL: He is awake. He is alert. He is oriented x3. He is somnolent, but arousable Amer [place] male who appears age appropriate and appears to be in no acute distress. HEENT: Normocephalic, atraumatic. Pupils equal, reactive bilaterally. He has some slight proptosis . Mucous membranes are moist, without visible lesions or thrush. NECK: Supple. He has no lymphadenopathy, JVD or thyromegaly. LUNGS: Clear anteriorly, posteriorly he had some fine crackles that seem to clear with deep inspirat ion. CARDIOVASCULAR: Normal S1, S2, no S3, S4. He is normal cardiac and regular, a 3/6 holosystolic murm ur and a quiet 2/6 systolic ejection murmur. ABDOMEN: Soft, is nontender, nondistended, no masses, no organomegaly. No rebound, rigidity or guar ding with normoactive bowel sounds present in all 4 quadrants. EXTREMITIES: Show no cyanosis, no clubbing, no edema. SKIN: Dry and warm. He has no skin lesions noted. No rashes noted. MUSCULOSKELETAL: Shows large joints to be normal to inspection. He has no palpable joint effusions, no inflammation. NEUROLOGIC: Cranial nerves II-XII are grossly intact. He has no focal neurologic deficits. Speech pattern was difficult to assess as he was not talking much and was sleepy. LABORATORY DATA: CMP showed sodium 140, potassium 5.2 with repeat showing 5.8, chloride 108, bicarb is 16 with repeat being 15, BUN of 82, creatinine 9.72. Liver functions are fairly normal. Total bilirubin 1.6. The CBC showed a white count of 6.0, hemogl obin 13.8, hematocrit 41.5, and platelet count low at 93,000. Troponin I was noted to initially be 0.142 with repeat of 0.154. RADIOGRAPHIC STUDIES: He had a stress test 10/14/2017 that did show some areas of ischemia at the ap ex, possibly. He also underwent cardiology consultation 10/14/2017 and 10/15/2017. A recent echocardiogram showed an EF of 15-20% with multiple valvular abnormalities. ASSESSMENT AND PLAN: 1. Infectious diarrhea. We will get stool studies including fecal leukocytes, stool for culture, O&P , Campe, and a norovirus. If negative, certainly can give Imodium. 2. End-stage renal disease on hemodialysis. We will consult Dr. August for dialysis today. The p atient has a low bicarbonate and high potassium. Certainly could benefit from dialysis even if he do es have any fluid removal. 3. Moderate dehydration: The patient appears to be volume down. We will give gentle IV fluids at 5 0 mL per hour until seen by Renal. 4. Diabetes mellitus type 2, we will place the patient on a sliding scale insulin for now. We will hold his metformin for the time being. 5. Cerebrovascular disease, currently asymptomatic. Place the patient on observation with telemetry. We will consult Nephrology, get serial cardiac biom arkers, and he just had a recent echo and a stress test. I am not going to consult Cardiology at thi s time as I do feel like he is in florid heart failure. I think it is more of an infectious diarrhea with dehydration.
[2017-10-24 06:38] LABS: Troponin I 0.134 ng/mL (< 0.028)
[2017-10-24] MEDS ORDERED: FLU VACC QS2017-18 36 mo. & older 0.5 ML SYRINGE IM ONE (09:00)
[2017-10-24 12:45] LABS: Troponin I 0.144 ng/mL (< 0.028)
[2017-10-24] MEDS: Famotidine 20 MG TAB PO SCH (14:08)
--- NOTE | 2017-10-24 14:21 | PDOC.PN ---
- Subjective Encounter Start Date: 10/24/17 Encounter Start Time: 14:18 Subjective: still has diarrhea, no abd pain or blood in stools - Objective Resuscitation Status: Resuscitation Status FULL:Full Resuscitation MAR Reviewed: Yes Vital Signs & Weight: Vital Signs (12 hours) Temp Pulse Resp BP Pulse Ox 10/24/17 08:05 97.7 F 66 20 10/24/17 07:47 97.7 F 66 20 92/50 L 96 10/24/17 05:34 98.7 F 69 20 10/24/17 05:14 98 10/24/17 04:45 98.7 F 69 20 127/69 100 Weight Admit Weight 204 lb 12.8 oz Weight 204 lb 12.8 oz I&O: 10/23/17 10/24/17 10/25/17 06:59 06:59 06:59 Intake Total 240 384 Balance 240 384 Result Diagrams: 10/23/17 22:48 10/24/17 01:04 Additional Labs: Accuchecks 10/24/17 10/24/17 06:43 06:00 POC Glucose 77 58 L* Phys Exam - Physical Examination Constitutional: NAD Neck: no JVD Respiratory: clear to auscultation bilateral Cardiovascular: RRR Gastrointestinal: soft, non-tender, positive bowel sounds Musculoskeletal: edema present Dx/Plan (1) Diarrhea Code(s): R19.7 - DIARRHEA, UNSPECIFIED Status: Acute (2) Acidosis, metabolic Code(s): E87.2 - ACIDOSIS Status: Acute (3) Hyperkalemia Code(s): E87.5 - HYPERKALEMIA Status: Acute (4) DM type 2 causing ESRD Code(s): E11.22 - TYPE 2 DIABETES MELLITUS W DIABETIC CHRONIC KIDNEY DISEASE; N18.6 - END STAGE RENAL DISEASE Status: Acute (5) ESRD on hemodialysis Code(s): N18.6 - END STAGE RENAL DISEASE; Z99.2 - DEPENDENCE ON RENAL DIALYSIS Status: Chronic (6) Essential hypertension Code(s): I10 - ESSENTIAL (PRIMARY) HYPERTENSION Status: Chronic (7) Tobacco abuse Code(s): Z72.0 - TOBACCO USE Status: Chronic - Plan diarrhea AGUDELO in progress -: cont HD, monitor lytes -: selected home meds * .
--- NOTE | 2017-10-25 01:37 | CON ---
DATE OF CONSULTATION: 10/24/2017 CONSULTING PHYSICIAN: Brandon August M.D. REQUESTING PHYSICIAN: Darryn Daniels MD REASON FOR CONSULTATION: The need for maintenance hemodialysis. IMPRESSION: 1. End-stage renal disease, hemodialysis dependent, Tuesday, Tuesday, and Tuesday. 2. Metabolic acidosis in the context of renal failure and persistent diarrhea. 3. Hyperkalemia. PLAN: 1. The patient to be dialyzed today in accordance with his schedule of Tuesday, Tuesday and Tuesday and afterwards will continue on Tuesday, Tuesday, Tuesday schedule. HISTORY OF PRESENT ILLNESS: This is a 57-year-old gentleman who recently left the hospital, presente d here with nausea and diarrhea and noted to be metabolically acidotic as well as hyperkalemic, need for continued maintenance hemodialysis to address these issues, the reason for this renal consultati on. PAST MEDICAL HISTORY: Significant for end-stage renal disease, hemodialysis dependent, hypertension, congestive heart failure, type 2 diabetes, dyslipidemia, CVA. MEDICATIONS: Reviewed and as documented on Gratci. ALLERGIES: Still remains the same as documented in the recent visit. SOCIAL HISTORY: Still remains the same as documented in the recent visit. REVIEW OF SYSTEMS: As documented in the body of the history. All the other systems were reviewed an d were found not to be significantly related to the presenting illness. LABORATORY INVESTIGATION: Significant for potassium of 5.8, bicarbonate of 15, creatinine 10.16, and BUN of 87. PHYSICAL EXAMINATION: GENERAL: The patient was found to be ill-looking, noted with the following vital signs. VITAL SIGNS: Afebrile with temperature 98.4, pulse 78, respiratory rate of 20, O2 saturation of 100% with a blood pressure of 155/89. HEENT: Unremarkable. CARDIOVASCULAR: First and second heart sounds were heard. RESPIRATORY SYSTEM: Clear to auscultation. DIGESTIVE SYSTEM: Revealed a benign abdomen with positive bowel sounds. EXTREMITIES: No peripheral edema. SKIN: No new gross rash. LYMPHATICS: No peripheral lymphadenopathy. SUMMARY: A 57-year-old gentleman with end-stage renal disease who presented here with nausea and catrachito rrhea, noted to be acidotic and hyperkalemic. Thank you for this consultation. We will follow with you.
[2017-10-25] MEDS: Sodium Chloride 0.9% 1,000 ML IV SCH (04:35)
[2017-10-25 05:52] LABS: Anion Gap 17 mmol/L (10-20); BUN (Urea Nitrogen) 42 mg/dL (8.4-25.7); Calc. Creatinine Clearance 16 mL/min (70-130); Calcium 8.8 mg/dL (7.8-10.44); Carbon Dioxide 23 mmol/L (22-29); Chloride 103 mmol/L (98-107); Estimated GFR-MDRD 11; Magnesium 1.9 mg/dL (1.6-2.6); Phosphorus 4.8 mg/dL (2.3-4.7)
[2017-10-25 06:15] LABS: Mean Platelet Volume 11.4 fL (7.4-10.4); Red Blood Cell (RBC) Count 4.51 mill/uL (4.70-6.10)
[2017-10-25 06:16] LABS: Band 5 % (5-11); Neutrophil 49 % (42-75); Reactive Lymphocytes 1 % (0-10)
[2017-10-25] MEDS: Famotidine 20 MG TAB PO SCH (08:53)
--- NOTE | 2017-10-25 10:41 | DIS ---
TRANSFER OF CARE NOTE DATE OF ADMISSION: 10/24/2017 DATE OF DISCHARGE: 10/25/2017 DISCHARGE DISPOSITION: Home. FINAL DIAGNOSES: 1. Diarrhea, resolved. 2. Uremia. 3. End-stage renal disease on hemodialysis. 4. Diabetes mellitus type 2 with end-stage renal disease. 5. Cardiomyopathy. 6. Hyperkalemia. 7. Acidosis. 8. Coronary artery disease. DISCHARGE MEDICATIONS: Cardura 8 mg a day, Coreg 6.25 mg twice a day, atorvastatin 20 mg a day, aspi rin 81 mg a day, allopurinol 100 mg a day, ranitidine 150 mg twice a day, Pamelor 25 mg at bedtime, i sosorbide 60 mg a day, NPH 70/30 20 units subcu in the morning and 10 units in the p.m., furosemide 4 0 mg twice a day. ALLERGIES: None. PENDING AT TIME OF DISCHARGE: Nothing. CODE STATUS: FULL. DIET: Renal. CONSULTATIONS: Dr. Brandon August PROCEDURES: Emergent hemodialysis. HOSPITAL COURSE: The patient presented to the Emergency Room complaining of diarrhea, found to be hy perkalemic and acidotic with markedly elevated BUN and creatinine. Despite his insistence, he had deras d dialysis the previous day. LABORATORY: Potassium 5.8, CO2 15, creatinine 2.16, BUN 87. The patient underwent hemodialysis to. His potassium was 3.9, CO2 is 23, creatinine 6.37, BUN 42. He is being discharged home to keep his hemodialysis appointment tomorrow. He has been advised to se e his PCP in follow up. CODE STATUS: Full. PENDING AT THE TIME OF DISCHARGE: None. Because of his diarrhea, multiple stool studies were done including Clostridium difficile, Campylobac ter, E. coli, they were all negative. I am quite confident that his diarrhea was related to a uremic syndrome at this point.
[2017-10-25 11:51] VITALS: BP 164/94; TEMP 98
[2017-10-30 00:07] LABS: Norovirus GI Negative (Negative); Norovirus GII Negative (Negative)
== END 2017-10-25 13:37 | disposition home or self-care (01) ==
LOC: ERS 22:10 → 2SE 10-24 02:50
PROVIDERS: ADMIT Internal Medicine Infectious Disease; ATTEND Internal Medicine Infectious Disease
DX: R19.7 Diarrhea, unspecified (principal); E11.22 Type 2 diabetes mellitus with diabetic chronic kidney disease; I13.2 Hypertensive heart and chronic kidney disease with heart failure and with stage 5 chronic kidney disease, or end stage renal disease; I50.9 Heart failure, unspecified; N18.6 End stage renal disease; I42.9 Cardiomyopathy, unspecified; E87.5 Hyperkalemia; E87.2 Acidosis; I25.10 Atherosclerotic heart disease of native coronary artery without angina pectoris; R11.0 Nausea; F17.200 Nicotine dependence, unspecified, uncomplicated; Z79.82 Long term (current) use of aspirin; Z79.4 Long term (current) use of insulin; Z79.899 Other long term (current) drug therapy; Z99.2 Dependence on renal dialysis; Z95.810 Presence of automatic (implantable) cardiac defibrillator; Z86.73 Personal history of transient ischemic attack (TIA), and cerebral infarction without residual deficits
CPT/HCPCS: 80048 ×2; 80053; 82553 ×3; 82962 ×2; 83630; 83735; 84100; 84484 ×3; 85025 ×2; 87015; 87045; 87046; 87206; 87449; 87798 ×2; 87899 ×2; 93005; 96361 ×2; 96374; 96375; 99285; G0378 ×2; 36415; 36416; 90935; G0257; J1815

== ENCOUNTER 2017-11-12 10:33 | Inpatient (IN) | payer MEDICARE, OTHER ==
--- NOTE | 2017-11-12 12:01 | CT ---
CT OF THE ABDOMEN AND PELVIS WITHOUT IV CONTRAST: INDICATION: A 57-year-old male with groin pain. COMPARISON: Prior exam dated 05/20/16. FINDINGS: Lung bases are clear. There is moderate cardiomegaly. There is partial visualization of an AICD. There are numerous gallstones within the gallbladder which appear similar to the prior exam. There has been interval development of mild ascites. There is mild to moderate anasarca. The spleen is enlarged measuring 13.7 cm, which his stable to the prior exam. The unopacified pancreas and adrenal glands are unremarkable. The atrophic-appearing kidneys are sim ilar-appearing. The prominent vascular calcifications involving the abdominopelvic vasculature are similar. The prostate is enlarged measuring 8.3 cm. This is stable to the prior exam. The unopacified large and small bowel are within normal limits. There is scattered degenerative and osteoarthritic change. No definite cute osseous abnormality is e vident. IMPRESSION: 1. Interval development of mild ascites and mild to moderate anasarca. 2. Stable splenomegaly. 3. Stable cholelithiasis. 4. Stable chronic findings as above. POS: [facility]
[2017-11-12 12:41] LABS: Lactic Acid - Sepsis 2.9 mmol/L (0.5-2.2)
[2017-11-12 12:41] LABS: Bilirubin Negative (Negative); Blood, Urine Small (Negative); Glucose, Urine (Dipstick) Negative (Negative); Ketone, Urine Negative (Negative); Nitrite Negative (Negative); Protein, Urine (Dipstick) 100 mg/dL (Neg-Trace)
[2017-11-12 12:42] LABS: Hematocrit 42.7 % (42.0-52.0); Mean Platelet Volume 12.1 fL (7.4-10.4); Red Blood Cell (RBC) Count 4.88 mill/uL (4.70-6.10); White Blood Cell (WBC) Count 6.3 thou/uL (4.8-10.8)
[2017-11-12 12:43] LABS: Prothrombin Time 16.5 SEC (12.0-14.7)
[2017-11-12 12:44] LABS: PTT 40.7 SEC (22.9-36.1)
[2017-11-12 12:45] LABS: ALT (SGPT) 10 U/L (8-55); AST (SGOT) 16 U/L (5-34); Alkaline Phosphatase 233 U/L (40-150); Anion Gap 20 mmol/L (10-20); BUN (Urea Nitrogen) 32 mg/dL (8.4-25.7); Bilirubin, Total 2.2 mg/dL (0.2-1.2); CK (CPK) 44 U/L (30-200); Calc. Creatinine Clearance 0 mL/min (70-130); Calcium 10.6 mg/dL (7.8-10.44); Carbon Dioxide 25 mmol/L (22-29); Chloride 97 mmol/L (98-107); Estimated GFR-MDRD 12; Globulin 4.7 g/dL (2.4-3.5); Lipase 15 U/L (8-78); Protein, Total 8.7 g/dL (6.0-8.3)
[2017-11-12 12:49] LABS: Troponin I 0.143 ng/mL (< 0.028)
[2017-11-12 12:53] LABS: Bacteria/HPF None Seen HPF (None Seen); Hyaline Casts/LPF 0-3 HYALINE CAST LPF (0-3 Hyaline); Squamous Epithelial 0-3 HPF (0-3)
[2017-11-12 13:03] LABS: Band 2 % (5-11); Neutrophil 57 % (42-75); Target Cells SLIGHT = 2-5 cells (100X) (0-1/hpf)
[2017-11-12] MEDS ORDERED: Morphine 4 MG/ML VIAL ONE (13:09)
[2017-11-12] MEDS ORDERED: HYDROcodone/Acetaminophen 5/325 mg Tablet PO PRN (13:55)
[2017-11-12] MEDS ORDERED: Acetaminophen 325 MG TAB PO PRN (13:55)
[2017-11-12] MEDS ORDERED: Guaifenesin DM 100-10/5 ML UDCUP PO PRN (13:55)
--- NOTE | 2017-11-12 13:55 | RAD ---
AP VIEW OF THE CHEST: INDICATION: Inguinal pain or groin pain. FINDINGS: No acute cardiopulmonary abnormality is evident. Mild cardiomegaly is stable. AICD is similar. IMPRESSION: Stable cardiomegaly and automatic implantable cardioverter/defibrillator. POS: [facility]
[2017-11-12] MEDS ORDERED: valACYclovir 500 MG TAB PO SCH ×2 (14:00→21:00)
[2017-11-12] MEDS ORDERED: Piperacillin/Tazobactam 2.25 GM in Sodium Chloride 0.9% 100 ML IVPB SCH (14:00)
[2017-11-12] MEDS ORDERED: Morphine 4 MG/ML VIAL SLOW IVP PRN (14:07)
[2017-11-12 14:54] LABS: Acetaminophen Less than 6.0 mcg/mL (10.0-30.0); Salicylate Less than 8.0 mg/dL (15.0-30.0)
[2017-11-12 17:07] LABS: Troponin I 0.145 ng/mL (< 0.028)
--- NOTE | 2017-11-12 17:08 | HP ---
REASON FOR ADMISSION: Severe left gluteal pain due to herpes zoster, abdominal pain. HISTORY OF PRESENT ILLNESS: Please note the majority of this history is obtained by my talking to the ER physician, prior records as patient is a very poor historian. He has also likely had prior CVA with difficulty articulating in addition to being a very poor historian. He complains of left gluteal pain. He has pain radiating to his leg. He states he had dialysis yesterday which was a 3-hour session as far as he can remember. In the ER, the patient was found to have had a creatinine of 6, lactic acid of 2.9 with abdominal tenderness on clinical exam. He is being admitted to telemetry. The patient has known history of ischemic cardiomyopathy with severe 3-vessel disease which is not amenable for intervention including surgery. He has had abdominal and pelvic CAT scan done in the ER which shows mild to moderate anasarca with mild ascites. This is when compared to prior CAT scan done in 2015 of April. PAST SURGICAL HISTORY: Severe ischemic cardiomyopathy with three-vessel disease and a known ejection fraction of around 15%-20%, noncompliance with hemodialysis and medication, stress test done in 09/2017 showed severe global hypokinesis with suspicion for the apical ischemic changes extending minimally into the anterior wall, had echo done in the same admission which showed EF of 20%-25% with moderate to severe mitral regurgitation and severe tricuspid regurgitation. Diabetes mellitus type 2, hypertension, dyslipidemia, end-stage renal disease on hemodialysis on Tuesday, Tuesday, and Tuesday, history of CVA, right upper extremity dialysis access procedures and AICD. PERSONAL HISTORY: The patient smokes off and on, but does not abuse alcohol. Also, there are reports of him using recreational drugs. FAMILY HISTORY: Has history of hypertension and diabetes in the family per prior records. CLINICAL IMPRESSION AND PLAN: The patient is on allopurinol 100 mg p.o. daily, aspirin 81 mg p.o. daily, atorvastatin 20 mg p.o. at bedtime, Coreg 6.25 mg p.o. twice daily, Cardura 8 mg p.o. daily, Lasix 40 mg twice daily, NPH 70/30 insulin 10 units subcutaneous q.p.m. and 20 subcu q.a.m., Imdur 60 mg p.o. daily , Pamelor 25 mg p.o. q.p.m., ranitidine 150 mg p.o. twice daily, Velphoro 500 mg p.o. 3 times daily. ALLERGIES: No known drug allergies. REVIEW OF SYSTEMS: The following complete review of systems was negative, unless otherwise mentioned in the HPI or below: Constitutional: Weight loss or gain, ability to conduct usual activities. Skin: Rash, itching. Eyes: Double vision, pain. ENT/Mouth: Nose bleeding, neck stiffness, pain, tenderness. Cardiovascular: Palpitations, dyspnea on exertion, orthopnea. Respiratory: Shortness of breath, wheezing, cough, hemoptysis, fever or night sweats. Gastrointestinal: Poor appetite, abdominal pain, heartburn, nausea, vomiting, constipation, or diarrhea. Genitourinary: Urgency, frequency, dysuria, nocturia. Musculoskeletal: Pain, swelling. Neurologic/Psychiatric: Anxiety, depression. Allergy/Immunologic: Skin rash, bleeding tendency. PHYSICAL EXAMINATION: GENERAL: The patient is a 57-year-old male who is currently in mild distress from pain in his left gluteal area. NECK: Supple, no elevated JVD. HEENT: Extraocular muscles intact. It is unclear if patient is able to see well. Oral cavity mucous membranes are moist. No exudates or congestion. CARDIOVASCULAR: S1, S2 heard. Regular rhythm. RESPIRATORY: Air entry 1+ bilaterally. Scattered rhonchi plus, no rales. ABDOMEN: Soft. There is voluntary guarding of the abdomen. No rigidity as such. Bowel sounds are heard. The patient has vesicles suggestive of zoster in his left gluteal area. EXTREMITIES: No peripheral edema or calf tenderness. VASCULAR SYSTEM: Peripheral pulses 1+ bilateral. No ischemic ulcerations or gangrene. CENTRAL NERVOUS SYSTEM: No gross focal deficits seen. Patient is alert, awake , but is not fully oriented. PSYCHIATRIC: The patient's mood is euthymic. No hallucinations or delusions at present. LABORATORY AND X-RAY FINDINGS: White count 6.3, H&H 14 and 42, platelet count is 83 with 57% neutrophils. PT, INR, PTT are 16, 1.3 and 40. Potassium 5.2, serum bicarbonate 25, BUN 32, creatinine 6.0. Glucose 107, calcium is 10.6, T bili is 2.2, AST 16, ALT 10, alkaline phosphatase 233, albumin is 4.0. Troponin I 0.14, lipase is 15. Chest x-ray done shows cardiomegaly with AICD seen, no acute infiltrate. CT of the abdomen without IV contrast done showed mild ascites and mild to moderate anasarca, stable splenomegaly, stable cholelithiasis. Prostate is enlarged measuring 8.3 cm. Large and small bowels were within normal limits. EKG done shows normal sinus rhythm at 84 beats per minute. There is RBBB seen. CLINICAL IMPRESSION AND PLAN: The patient will be admitted to telemetry for left gluteal pain due to herpes zoster. He also has abdominal voluntary guarding and the reason for this is unclear at present. He apparently had hemodialysis yesterday per patient. Again, the patient is a very poor historian and we will confirm the same with his senior dentist, Dr. Taylor. His abdominal CAT scan did not reveal any small-bowel obstruction or perforated viscus. We will place him on valacyclovir 500 mg p.o. daily for his zoster. We will continue all his home medications including Coreg, aspirin, Lipitor, allopurinol, Cardura, Imdur, and Pamelor as before. 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 He will also be on Premont and morphine p.r.n. for pain for now. The patient has known history of ischemic cardiomyopathy with nonoperable three-vessel disease. Likely his LFTs are elevated due to passive congestion versus volume overload versus a questionable history of alcohol usage and drug usage. We will obtain urine drug screen as well. We will continue to closely monitor him on telemetry given his age of 57 years with multiple medical issues and being a poor historian as well. MTDD
[2017-11-12 17:18] VITALS: BMI 28.7
[2017-11-12 20:29] LABS: Troponin I 0.147 ng/mL (< 0.028)
[2017-11-12] MEDS: Carvedilol 3.125 MG TAB PO SCH (21:35)
[2017-11-12] MEDS: Atorvastatin Calcium 20 MG TAB PO SCH (21:35)
[2017-11-12] MEDS: Gabapentin 100 MG CAP PO SCH (21:35)
[2017-11-12] MEDS: Nortriptyline HCl 25 MG CAP PO SCH (21:35)
[2017-11-12] MEDS: Heparin 5,000 UNITS/ML VIAL SC SCH (21:36)
--- NOTE | 2017-11-12 23:22 | CON ---
HISTORY OF PRESENT ILLNESS: Mino Guy is a 57-year-old Black male well known to me. I last s aw him in 11/2014 for repair of transposition of the cephalic vein fistula right upper arm due to ane urysmal dilatation. In 01/2011, I placed a right arm primary AV fistula slow outflow basilic vein un dergoing a basilic vein transposition fistula right arm. I then performed aneurysmal dilatation repa ir of the aneurysm present. I have not seen him since that time. The patient has severe cardiomyopa thy, sleep apnea, use of BiPAP at home, and dialyzes under the direction of Dr. Taylor, Nephrolog y. He has a defibrillator in left subclavian vein. The patient reported to the emergency room today , evaluated by an emergency room physician and admitted by hospitalist. He has severe left gluteal p ain due to herpes zoster. The patient's mental status is compromised. Apparently, the patient was d ialyzed yesterday. He was felt to have abdominal tenderness, underwent a CAT scan noting ascites and cholelithiasis. There is no mention of biliary ductal dilatation. He has a past history of imaging studies, CAT scans demonstrating cholelithiasis, but this has been asymptomatic. The patient has an ischemic cardiomyopathy with end-stage coronary artery disease nonamenable to parish scularization. He has a defibrillator in left subclavian vein. Echocardiogram recently 09/2017 show ed severe global hypokinesis and stress test suggested ischemia, but again noted, he is not amenable to revascularization. He has diabetes mellitus type 2, hypertension, dyslipidemia, on hemodialysis M , Tuesday, and Tuesday, history of stroke. TOBACCO: Use occasionally. ALCOHOL: None. MEDICATIONS: Allopurinol, aspirin, atorvastatin, Coreg, Cardura, Lasix, insulin 10 units subcu p.m., 20 units subcu a.m., Imdur 60 daily, Pamelor 25 mg at bedtime, ranitidine daily, Velphoro 500 mg p.o . 3 times a day. ALLERGIES: None. REVIEW OF SYSTEMS: The patient is not alert enough to obtain a review of systems. PHYSICAL EXAMINATION: VITAL SIGNS: 97.5, 90, 151/87. LUNGS: Clear to auscultation. CARDIAC: Regular rate and rhythm without murmur or gallop. Defibrillator, left chest. ABDOMEN: Soft, no peritoneal signs. He has slight distention and positive fluid wave. EXTREMITIES: Fistula, right upper arm. ASSESSMENT AND PLAN: Ascites related to ischemic cardiomyopathy and end-stage renal disease. He is undergoing dialysis now. I do not identify any surgical problem and will follow him with you.
[2017-11-13 02:58] LABS: Amphetamine Not Detected (NotDetected); Methadone Not Detected (NotDetected); Methamphetamine Not Detected (NotDetected)
[2017-11-13 06:15] LABS: Anion Gap 15 mmol/L (10-20); BUN (Urea Nitrogen) 29 mg/dL (8.4-25.7); Calc. Creatinine Clearance 18 mL/min (70-130); Calcium 9.9 mg/dL (7.8-10.44); Carbon Dioxide 27 mmol/L (22-29); Chloride 98 mmol/L (98-107); Estimated GFR-MDRD 13
[2017-11-13 06:44] LABS: Hematocrit 36.3 % (42.0-52.0); Mean Platelet Volume 7.7 fL (7.4-10.4); Metamyelocyte 1 % (0-0); Neutrophil 55 % (42-75); Reactive Lymphocytes 2 % (0-10); Red Blood Cell (RBC) Count 4.16 mill/uL (4.70-6.10); White Blood Cell (WBC) Count 5.1 thou/uL (4.8-10.8)
--- NOTE | 2017-11-13 06:54 | CON ---
DATE OF CONSULTATION: 11/12/2017 CONSULTING PHYSICIAN: Brandon August MD REQUESTING PHYSICIAN: ER physician. REASON FOR CONSULTATION: and need for hemodialysis. IMPRESSION: 1. 2. hyperkalemia. 3. Respiratory distress. 4. Atrial fibrillation induced by shingles. PLAN: Given the rising potassium and shortness of breath, we will go ahead and do a short dialysis t rk and then next dialysis will be in accordance with the schedule for this patient. HISTORY OF PRESENT ILLNESS: A 57-year-old gentleman, who had been in and out of hospital recently wh o presented here with left gluteal pain and was diagnosed with shingles. Patient also did complain o f shortness of breath and clinical examination revealed a potassium of 5.2. PAST MEDICAL HISTORY: Significant for end-stage renal disease on hemodialysis, hypertension, ischemi c cardiomyopathy, type 2 diabetes. MEDICATIONS: Reviewed as documented on [employer]. FAMILY HISTORY: Significant for diabetes. ALLERGIES: No known drug allergies. REVIEW OF SYSTEMS: Highly limited given the significant expressive aphasia in this patient, but more or less as documented in the body of the history. PHYSICAL EXAMINATION: GENERAL: The patient was found to be in some physical distress with) mild respiratory distress with the following vital signs. VITAL SIGNS: Afebrile with temperature 97.5, pulse 90, respiratory rate of 18, O2 sat of 95%-100% on 2 liters, blood pressure 151/87. HEENT: Unremarkable. CARDIOVASCULAR SYSTEM: First and second heart sounds were heard. RESPIRATORY SYSTEM: Clear to auscultation. DIGESTIVE SYSTEM: Revealed a benign abdomen with positive bowel sounds. EXTREMITIES: No peripheral edema. SKIN: No new gross rash. LYMPHATICS: No peripheral lymphadenopathy. SUMMARY: A 57-year-old gentleman with end-stage renal disease, who presented here with groin pain an d keeping with possible shingles and some degree of shortness of breath. Thank you for this consultation. We will follow with you.
[2017-11-13] MEDS ORDERED: FLU VACC QS2017-18 36 mo. & older 0.5 ML SYRINGE IM ONE (09:00)
[2017-11-13] MEDS: valACYclovir 500 MG TAB PO SCH (09:10)
[2017-11-13] MEDS: Gabapentin 100 MG CAP PO SCH ×2 (09:10→20:56)
[2017-11-13] MEDS: Allopurinol 100 MG TAB PO SCH (09:10)
[2017-11-13] MEDS: Famotidine 20 MG TAB PO SCH (09:10)
[2017-11-13] MEDS: Heparin 5,000 UNITS/ML VIAL SC SCH ×2 (09:11→21:21)
[2017-11-13] MEDS: Carvedilol 3.125 MG TAB PO SCH ×2 (09:11→20:56)
[2017-11-13] MEDS ORDERED: Sodium Chloride 0.9% 1,000 ML IV SCH (10:15)
[2017-11-13] MEDS: Doxazosin Mesylate 4 MG TAB PO SCH (10:22)
--- NOTE | 2017-11-13 11:25 | PDOC.PN ---
- Subjective Encounter Start Date: 11/13/17 Encounter Start Time: 08:25 Subjective: still c/o abd dyscomfort but wants to eat -: no nausea, chest pain or palp - Objective MAR Reviewed: Yes Vital Signs & Weight: Vital Signs (12 hours) Temp Pulse Resp BP Pulse Ox 11/13/17 08:00 98 F 75 16 99 11/13/17 07:48 98 F 75 16 140/64 99 11/13/17 04:00 99.3 F 75 18 129/66 99 11/13/17 00:00 97.9 F 75 18 144/65 H 100 Weight Weight 188 lb 14.978 oz I&O: 11/12/17 11/13/17 11/14/17 06:59 06:59 06:59 Intake Total 10 Output Total 80 Balance -70 Result Diagrams: 11/13/17 05:39 11/13/17 05:39 Phys Exam - Physical Examination HEENT: PERRLA, moist MMs Neck: no JVD, supple Respiratory: no wheezing, no rales Cardiovascular: RRR, no significant murmur Gastrointestinal: soft, no distention, positive bowel sounds diffusely tender, no rigidity but mostly vol guarding Musculoskeletal: no edema, pulses present has zoster blisters on left gluteal area Neurological: non-focal, moves all 4 limbs Dx/Plan (1) Herpes zoster Code(s): B02.9 - ZOSTER WITHOUT COMPLICATIONS Status: Acute Comment: left gluteal area (2) Abdominal pain Code(s): R10.9 - UNSPECIFIED ABDOMINAL PAIN Status: Acute Qualifiers: Abdominal location: generalized Qualified Code(s): R10.84 - Generalized abdominal pain Comment: ?isch colitis (3) DM type 2 (diabetes mellitus, type 2) Status: Chronic Qualifiers: Diabetes mellitus complication status: with kidney complications Diabetes mellitus complication detail: with chronic kidney disease Diabetes mellitus care home insulin use: with care home use Chronic kidney disease stage: on chronic dialysis Qualified Code(s): E11.22 - Type 2 diabetes mellitus with diabetic chronic kidney disease; N18.6 - End stage renal disease; N18.6 - End stage renal disease; N18.6 - End stage renal disease; N18.6 - End stage renal disease; Z79.4 - ocean transportation intermediary (current) use of insulin; Z79.4 - [facility] (current ) use of insulin; Z79.4 - ocean transportation intermediary (current) use of insulin; Z79.4 - [facility] (current) use of insulin; Z99.2 - Dependence on renal dialysis; Z99.2 - Dependence on renal dialysis; Z99.2 - Dependence on renal dialysis; Z99.2 - Dependence on renal dialysis (4) Cardiomyopathy Code(s): I42.9 - CARDIOMYOPATHY, UNSPECIFIED Status: Chronic 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 transplanted heart: [place] heart Associated angina: with stable angina Qualified Code(s): I25.118 - Atherosclerotic heart disease of [place] coronary artery with other forms of angina pectoris (6) Chronic systolic heart failure Code(s): I50.22 - CHRONIC SYSTOLIC (CONGESTIVE) HEART FAILURE Status: Chronic (7) Cocaine abuse Code(s): F14.10 - COCAINE ABUSE, UNCOMPLICATED Status: Chronic (8) ESRD on hemodialysis Code(s): N18.6 - END STAGE RENAL DISEASE; Z99.2 - DEPENDENCE ON RENAL DIALYSIS Status: Chronic (9) Essential hypertension Code(s): I10 - ESSENTIAL (PRIMARY) HYPERTENSION Status: Chronic - Plan gentle iv hydration, full liq diet for now -: valtrex and neurontin for zoster -: denies cocaine usage -: morphine, narco prn -: continue asp, coreg, imdur. Will tx to med floor in am * . Review of Systems - Medications/Allergies Allergies/Adverse Reactions: Allergies Allergy/AdvReac Type Severity Reaction Status Date / Time No Known Drug Allergies Allergy Verified 10/13/17 05:54 Medications: Current Medications Acetaminophen (Tylenol) 650 mg PO Q4H PRN PRN Reason: Headache/Fever or Pain Hydrocodone Bitart/Acetaminophen (Supai 5/325) 1 tab PO Q4H PRN PRN Reason: Moderate Pain (4-6) Allopurinol (Zyloprim) 100 mg PO DAILY [facility] Last Admin: 11/13/17 09:10 Dose: 100 mg Aspirin (Aspirin Chewable) 81 mg PO DAILY [facility] Last Admin: 11/13/17 09:11 Dose: 81 mg Atorvastatin Calcium (Lipitor) 20 mg PO HS [facility] Last Admin: 11/12/17 21:35 Dose: 20 mg Carvedilol (Coreg) 3.125 mg PO BID [facility] Last Admin: 11/13/17 09:11 Dose: 3.125 mg Doxazosin Mesylate (Cardura) 8 mg PO DAILY [facility] Last Admin: 11/13/17 10:22 Dose: 8 mg Famotidine (Pepcid) 20 mg PO DAILY [facility] Last Admin: 11/13/17 09:10 Dose: 20 mg Gabapentin (Neurontin) 100 mg PO BID [facility] Last Admin: 11/13/17 09:10 Dose: 100 mg Guaifenesin/Dextromethorphan (Robitussin Dm) 15 ml PO Q4H PRN PRN Reason: Cough Heparin Sodium (Porcine) (Heparin) 5,000 units SC BID [facility] Last Admin: 11/13/17 09:11 Dose: 5,000 units Sodium Chloride (Normal Saline 0.9%) 1,000 mls @ 70 mls/hr IV .[id number] [facility] Last Admin: 11/13/17 10:22 Dose: 1,000 mls Isosorbide Mononitrate (Imdur) 60 mg PO DAILY [facility] Last Admin: 11/13/17 09:10 Dose: 60 mg Morphine Sulfate (Morphine) 2 mg SLOW IVP Q4H PRN PRN Reason: Chest Pain/BP Elevations. Nortriptyline HCl (Pamelor) 25 mg PO QPM [facility] Last Admin: 11/12/17 21:35 Dose: 25 mg (Sucroferric Oxyhydroxide [ Velphoro] 500 Mg) Med 0 each PO TID[facility] Valacyclovir HCl (Valtrex) 500 mg PO DAILY [facility] Last Admin: 11/13/17 09:10 Dose: 500 mg
--- NOTE | 2017-11-13 12:19 | PRG ---
DATE OF SERVICE: 11/13/2017 SUBJECTIVE: Mino Guy is more awake. He has his baseline speech impediment, probably resulti ng from prior stroke. He states he has lower abdominal discomfort, but has not had any nausea or vom iting. Temperature 98 degrees, pulse 75, respiratory rate 16, blood pressure 140/64. Patient is a F ULL CODE. He has a severe cardiomyopathy 20%-25% by echocardiogram on 10/15/2017 and has a defibrill ator. CAT scan revealed ascites and gallstones, which he has had for a number of years, asymptomatic . White count is 5, hemoglobin 12. Today, his sodium is 136, potassium 4.4, BUN and creatinine cons istent with his end-stage renal disease. Patient's bilirubin was not re-measured today; yesterday it was slightly elevated; and liver function tests elevated, probably secondary to liver decompensation from his cardiomyopathy. This is probably the source of ascites also along with his end-stage renal disease. OBJECTIVE: LUNGS: Clear to auscultation. CARDIAC: Regular rate and rhythm. ABDOMEN: Soft, mild tenderness in lower abdomen without guarding or peritoneal signs. ASSESSMENT AND PLAN: Abdominal pain of uncertain etiology. He has asymptomatic gallstones and his b ile duct caliber is normal without intrahepatic ductal dilatation seen on his CAT scan. No intervent ion is necessary here and cardiac risks are probably prohibitive. Review of his CAT scan does not re veal any significant constipation as the cause of his problems. His ascites is probably due to his c ardiomyopathy and cardiac decompensation along with his end-stage renal disease. At this point, no s urgical intervention is necessary and surgical risks are almost prohibitive. I would suggest a discu ssion be held with him regarding code status.
--- NOTE | 2017-11-13 18:10 | CON ---
DATE OF CONSULTATION: 11/13/2017 REASON FOR CONSULTATION: Herpes zoster. HISTORY OF PRESENT ILLNESS: A 57-year-old with history of end-stage renal disease, CHF and type 2 di abetes mellitus who has a few days history of left gluteal pain and left thigh pain. He was brought in to the emergency room, had an abdomen and pelvis CT scan, showed mild to moderate anasarca and asc ites. Initial vital signs with a temperature 97.9 with BP 144/65, temperature 98.8. The initial exa m showed vesicles in the left gluteal and thigh area posteriorly. Labs with white cell count 6.3, pl atelet count 83,000, 57% neutrophils, bilirubin 2.2, transaminases normal, alkaline phosphatase 233. Currently, Ms. Guy is drowsy, but arousable. He is oriented. Denies any headaches, no sore th roat, odynophagia, dysphagia, no dyspnea or chest pain, no abdominal pain. He has moderate to severe pain in the left gluteal and left thigh region. PAST MEDICAL HISTORY: Cardiomyopathy, end-stage renal disease, AICD in place, hemodialysis through a n AV fistula, severe mitral and tricuspid regurgitation, type 2 diabetes, hypertension, and dyslipide baldo. ALLERGIES: None. CURRENT MEDICATIONS: Allopurinol, atorvastatin, Coreg, Cardura, Lasix, insulin, Imdur, Pamelor, geoff tidine, and Velphoro. FAMILY HISTORY: Hypertension and diabetes. SOCIAL HISTORY: Current every other day smoker. FAMILY HISTORY: Otherwise, had hypertension and diabetes. PHYSICAL EXAMINATION: VITAL SIGNS: T-max 99.3, blood pressure 120/60, pulse 71, respirations 18, O2 sat 93%-99%, drowsy, b ut arousable, oriented. SKIN: With the vesicles in the posterior aspect of the left thigh and gluteal region, no scabbing no kaveh just yet. There is diffuse skin xerosis and areas of prurigo nodularis in the lower extremities with symmetric distribution. Patient has AV fistula for access. No lymphadenopathy. HEENT: Ocular movements are conjugate. Oral cavity is still with a few teeth in place. NECK: Supple, no jugular venous distention. LUNGS: With symmetric clear breath sounds. HEART: S1, S2, regular rate. No S3 or S4. ABDOMEN: Soft, not distended or tender. No ascites. No bladder distention. EXTREMITIES: No joint inflammatory activity. Pulses are 1+ in dorsalis pedis, able to move extremit ies equally. NEUROLOGIC: He is awake, oriented, follows commands. LABORATORY DATA: White cell count 6.3 and 5.1, hemoglobin 12, platelets 74,000 with 55% neutrophils, 15% lymphocytes, 18% monocytes. Chemistry: Creatinine 5.38, calcium is 10.6, bilirubin 2.2, albumi n 4.0. Urinalysis with 11-20 wbcs. Reports include abdomen and pelvis CT with mild ascites, splenom egaly, numerous gallstones and enlarged prostate. ASSESSMENT: Diabetes type 2, end-stage renal disease, ischemic cardiomyopathy, congestive heart fail ure, depressed ejection fraction, automated implantable cardioverter defibrillator in place, possible chronic liver disease with cirrhosis and portal hypertension, herpes zoster in the lower lumbosacral spine dermatome distribution, left side. DISCUSSION: The patient has a dermatomal herpes zoster and has been started on Valtrex, adjusted for renal function to be continued for the usual duration. The patient is at risk for postherpetic neur algia. No other areas of concern present at this time.
[2017-11-13] MEDS: Atorvastatin Calcium 20 MG TAB PO SCH (20:56)
[2017-11-13] MEDS: Nortriptyline HCl 25 MG CAP PO SCH (20:56)
--- NOTE | 2017-11-13 21:32 | PRG ---
DATE OF SERVICE: 11/13/2017 SUBJECTIVE: The patient was seen and examined with no new complaints. PHYSICAL EXAMINATION: VITAL SIGNS: Afebrile with temperature 97.6, pulse 76, respiratory rate of 18, O2 saturation 98% wit h blood pressure 123/86. HEENT: Unremarkable. Moist oral mucosa. NECK: Supple. No conjunctival injection or icterus. CARDIOVASCULAR: First and second heart sounds were heard. RESPIRATORY: Clear to auscultation. DIGESTIVE: Revealed a benign abdomen with positive bowel sounds. EXTREMITIES: No peripheral edema. SKIN: No new gross rash. LYMPHATICS: No peripheral lymphadenopathy. LABORATORY INVESTIGATIONS: Showed a hemoglobin of 12.0. Chemistry showed a potassium down to 4.4, c reatinine 5.3 with a BUN of 29. IMPRESSION: 1. End-stage renal disease, hemodialysis dependent. 2. Hyperkalemia, which has resolved. 3. Chronic pain in the context of shingles. PLAN: 1. Discontinue the current IV fluid. 2. Continue current renal supportive measures. 3. Patient will be due for dialysis tomorrow in accordance with his schedule of Tuesday, Tuesday, a tuesday. 4. Further management to be dependent on the clinical course.
[2017-11-14 06:53] LABS: ALT (SGPT) 9 U/L (8-55); AST (SGOT) 16 U/L (5-34); Alkaline Phosphatase 175 U/L (40-150); Bilirubin, Direct 1.2 mg/dL (0.1-0.3); Bilirubin, Total 1.6 mg/dL (0.2-1.2); Protein, Total 7.2 g/dL (6.0-8.3)
--- NOTE | 2017-11-14 06:56 | CON ---
DATE OF CONSULTATION: 11/13/2017 REASON FOR CONSULTATION: Possible ischemic colitis. HISTORY OF PRESENT ILLNESS: Mr. Guy is a 57-year-old gentleman who has end-stage renal disease on dialysis, who was admitted yesterday, had some abdominal discomfort. Apparently, he was found to have a vesicular rash on the left gluteal area of the posterior thigh, found in the emergency room, w connie was diagnosed to be shingles. When he got to the floor, he had a CAT scan also, which showed as cites and hepatosplenomegaly. He has dialysis routinely and he has a known ischemic cardiomyopathy w connie is not amenable to any kind of therapy. He has severe TR with this as well. At this admission, he also was positive for cocaine on a drug screen. Presently, the patient is without pain. PAST MEDICAL HISTORY: Severe ischemic cardiomyopathy with 3-vessel disease, ejection fraction 15% to 20%. Apparently, this is lower than it was in last year with severe TR. He has diabetes type 2, hy pertension, dyslipidemia, end-stage renal disease on dialysis. He reports he is compliant with this, and there is no question about that. He has previous history of CVA and stroke. PAST SURGICAL HISTORY: Notable for AICD, multiple access surgeries for dialysis, defibrillator place d in the left subclavian vein, recently had a stress test showing some ischemia but was not amenable to revascularization. MEDICATIONS: Aspirin, allopurinol, atorvastatin, Coreg, Cardura, Lasix, insulin, Imdur, Pamelor, ran itidine, Velphoro, Tylenol, allopurinol, aspirin, atorvastatin, carvedilol, doxazosin, famotidine, ga bapentin, heparin, hydrocodone, Imdur, morphine p.r.n., valacyclovir, and Pamelor. ALLERGIES: None. REVIEW OF SYSTEMS: Unable to obtain as the patient has some garbled speech. The nurses informed me this is chronic and not an acute change. PHYSICAL EXAMINATION: GENERAL: The patient is sitting on the side of the bed comfortably. He is not short of breath or dy spneic, denies abdominal pain. VITAL SIGNS: Temperature is 97, pulse 86, respirations 18, blood pressure 123/86. LUNGS: Clear. CARDIAC: Regular rate and rhythm without clicks or murmurs. ABDOMEN: Soft, nontender. There is a scabbed rash on the buttocks on the left. EXTREMITIES: Reveal no edema. LABORATORY STUDIES: White count 5.1, hemoglobin 12, platelet count 74,000. INR 1.3. Chemistries: BUN and creatinine are 29 and 5.39. AST and ALT are 16 and 10, alkaline phosphatase 233, bilirubin i s 2.2. 09/23/2017 was normal. Urine drug screen, 11/13/2017, positive for opiates, positive f or cocaine. CT scan films reviewed. He has cholelithiasis. This has been chronic. There is a ilene le bit of ascites. Liver appears enlarged but does not appear nodular, spleen is mildly enlarged. E chocardiogram on 10/13/2017 showed EF of 20% to 25%, severe TR, normal RV. ASSESSMENT AND PLAN: 1. Abdominal pain, resolved. There are no signs of colitis or mesenteric ischemia. He had no bowel wall thickening and has no abdominal pain at this time. He may have had that when he came in relate d to cocaine use, but there are no signs that he need surgery. 2. Gallstones, asymptomatic. 3. Ascites and mildly elevated bilirubin, alkaline phosphatase consistent with passive hepatic conge stion from severe right heart failure. At this time, I recommend no further interventions. He needs to avoid cocaine though. 4. Shingles in an immunocompromised patient. We are treating this. We will follow from a distance. If I can be of further assistance in the patient's care, please do not hesitate to contact me.
[2017-11-14] MEDS ORDERED: valACYclovir 500 MG TAB PO SCH (12:00)
--- NOTE | 2017-11-14 12:11 | PDOC.PN ---
- Subjective Encounter Start Date: 11/14/17 Encounter Start Time: 09:15 Subjective: getting HD now, no abd pain or nausea -: does not interact much - Objective MAR Reviewed: Yes Vital Signs & Weight: Vital Signs (12 hours) Temp Pulse Resp BP Pulse Ox 11/14/17 04:00 99.3 F 78 20 125/69 92 L Weight Weight 198 lb 3.129 oz I&O: 11/13/17 11/14/17 11/15/17 06:59 06:59 06:59 Intake Total 10 1480 Output Total 80 100 Balance -70 1380 Result Diagrams: 11/13/17 05:39 11/13/17 05:39 Phys Exam - Physical Examination HEENT: PERRLA, moist MMs Neck: no JVD, supple Respiratory: no wheezing, no rales Cardiovascular: RRR, no significant murmur Gastrointestinal: soft, non-tender, no distention, positive bowel sounds Musculoskeletal: no edema, pulses present Neurological: non-focal, moves all 4 limbs Dx/Plan (1) Herpes zoster Code(s): B02.9 - ZOSTER WITHOUT COMPLICATIONS Status: Acute Comment: left gluteal area (2) Abdominal pain Code(s): R10.9 - UNSPECIFIED ABDOMINAL PAIN Status: Resolved Qualifiers: Abdominal location: generalized Qualified Code(s): R10.84 - Generalized abdominal pain Comment: ?isch colitis (3) DM type 2 (diabetes mellitus, type 2) Status: Chronic Qualifiers: Diabetes mellitus complication status: with kidney complications Diabetes mellitus complication detail: with chronic kidney disease 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 Chronic kidney disease stage: on chronic dialysis Qualified Code(s): E11.22 - Type 2 diabetes mellitus with diabetic chronic kidney disease; N18.6 - End stage renal disease; Z99.2 - Dependence on renal dialysis; Z99.2 - Dependence on renal dialysis; Z99.2 - Dependence on renal dialysis; N18.6 - End stage renal disease; N18.6 - End stage renal disease; N18.6 - End stage renal disease; Z79.4 - long-term (current ) use of insulin; Z79.4 - watermaster (current) use of insulin; Z79.4 - watermaster (current) use of insulin; Z79.4 - watermaster (current) use of insulin; Z99.2 - Dependence on renal dialysis (4) Cardiomyopathy Code(s): I42.9 - CARDIOMYOPATHY, UNSPECIFIED Status: Chronic 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 transplanted heart: [place] heart Associated angina: with stable angina Qualified Code(s): I25.118 - Atherosclerotic heart disease of [place] coronary artery with other forms of angina pectoris (6) Chronic systolic heart failure Code(s): I50.22 - CHRONIC SYSTOLIC (CONGESTIVE) HEART FAILURE Status: Chronic (7) Cocaine abuse Code(s): F14.10 - COCAINE ABUSE, UNCOMPLICATED Status: Chronic (8) ESRD on hemodialysis Code(s): N18.6 - END STAGE RENAL DISEASE; Z99.2 - DEPENDENCE ON RENAL DIALYSIS Status: Chronic (9) Essential hypertension Code(s): I10 - ESSENTIAL (PRIMARY) HYPERTENSION Status: Chronic - Plan advance diet to oral solid diet -: dc plan in am -: is on valtrex -: abd pain has completely resolved -: will need HH/family to oversee him at home given multiple med cond/drug abu * . Review of Systems - Medications/Allergies Allergies/Adverse Reactions: Allergies Allergy/AdvReac Type Severity Reaction Status Date / Time No Known Drug Allergies Allergy Verified 10/13/17 05:54 Medications: Current Medications Acetaminophen (Tylenol) 650 mg PO Q4H PRN PRN Reason: Headache/Fever or Pain Hydrocodone Bitart/Acetaminophen (Cameron 5/325) 1 tab PO Q4H PRN PRN Reason: Moderate Pain (4-6) Allopurinol (Zyloprim) 100 mg PO DAILY [facility] Last Admin: 11/13/17 09:10 Dose: 100 mg Aspirin (Aspirin Chewable) 81 mg PO DAILY [facility] Last Admin: 11/13/17 09:11 Dose: 81 mg Atorvastatin Calcium (Lipitor) 20 mg PO HS [facility] Last Admin: 11/13/17 20:56 Dose: 20 mg Carvedilol (Coreg) 3.125 mg PO BID [facility] Last Admin: 11/13/17 20:56 Dose: 3.125 mg Doxazosin Mesylate (Cardura) 8 mg PO DAILY [facility] Last Admin: 11/13/17 10:22 Dose: 8 mg Famotidine (Pepcid) 20 mg PO DAILY [facility] Last Admin: 11/13/17 09:10 Dose: 20 mg Gabapentin (Neurontin) 100 mg PO BID [facility] Last Admin: 11/13/17 20:56 Dose: 100 mg Guaifenesin/Dextromethorphan (Robitussin Dm) 15 ml PO Q4H PRN PRN Reason: Cough Heparin Sodium (Porcine) (Heparin) 5,000 units SC BID [facility] Last Admin: 11/13/17 21:21 Dose: Not Given Isosorbide Mononitrate (Imdur) 60 mg PO DAILY [facility] Last Admin: 11/13/17 09:10 Dose: 60 mg Morphine Sulfate (Morphine) 2 mg SLOW IVP Q4H PRN PRN Reason: Chest Pain/BP Elevations. Nortriptyline HCl (Pamelor) 25 mg PO QPM [facility] Last Admin: 11/13/17 20:56 Dose: 25 mg (Sucroferric Oxyhydroxide [ Velphoro] 500 Mg) Med 0 each PO TID-[facility] Valacyclovir HCl (Valtrex) 500 mg PO 1200 [facility]
[2017-11-14] MEDS: Famotidine 20 MG TAB PO SCH (12:22)
[2017-11-14] MEDS: Gabapentin 100 MG CAP PO SCH ×2 (12:22→21:05)
[2017-11-14] MEDS: Carvedilol 3.125 MG TAB PO SCH ×2 (12:22→21:05)
[2017-11-14] MEDS: Heparin 5,000 UNITS/ML VIAL SC SCH ×2 (12:22→21:06)
[2017-11-14] MEDS: Allopurinol 100 MG TAB PO SCH (12:22)
[2017-11-14] MEDS: Doxazosin Mesylate 4 MG TAB PO SCH (12:23)
[2017-11-14] MEDS: valACYclovir 500 MG TAB PO SCH (12:53)
[2017-11-14] MEDS: SUCROFERRIC OXYHYDROXIDE 500 MG PO SCH ×3 (13:43→13:45)
[2017-11-14] MEDS: Nortriptyline HCl 25 MG CAP PO SCH (21:05)
[2017-11-14] MEDS: Atorvastatin Calcium 20 MG TAB PO SCH (21:05)
[2017-11-15 05:24] VITALS: BP 108/54; TEMP 97.7
[2017-11-15 05:57] LABS: ALT (SGPT) Less than 7 U/L (8-55); AST (SGOT) 20 U/L (5-34); Alkaline Phosphatase 206 U/L (40-150); Anion Gap 14 mmol/L (10-20); BUN (Urea Nitrogen) 27 mg/dL (8.4-25.7); Bilirubin, Total 1.9 mg/dL (0.2-1.2); Calc. Creatinine Clearance 19 mL/min (70-130); Calcium 9.1 mg/dL (7.8-10.44); Carbon Dioxide 28 mmol/L (22-29); Chloride 97 mmol/L (98-107); Estimated GFR-MDRD 13; Globulin 4.2 g/dL (2.4-3.5); Protein, Total 7.7 g/dL (6.0-8.3)
--- NOTE | 2017-11-15 06:01 | PRG ---
DATE OF SERVICE: 11/14/2017 SUBJECTIVE: The patient was seen and examined today, somewhat at dialysis, and noted with the following vital signs. PHYSICAL EXAMINATION: VITAL SIGNS: T-max 101.6, pulse of 84, respiratory rate of 18, O2 saturation of 96%, and blood press ure 119/65. HEENT: Unremarkable. CARDIOVASCULAR: First and second heart sounds were heard. RESPIRATORY: Clear to auscultation. DIGESTIVE: Revealed a benign abdomen with positive bowel sounds. EXTREMITIES: No peripheral edema. SKIN: No new gross rash. LYMPHATICS: No peripheral lymphadenopathy. IMPRESSION: 1. End-stage renal disease, hemodialysis dependent. 2. Fever, query source. 3. Shingles. PLAN: 1. The patient is on his regular schedule on Tuesday, Tuesday and Tuesday dialysis. 2. Fever workup to be initiated and carried out by the primary team. 3. Further management to be dependent on the clinical course.
[2017-11-15 06:27] LABS: Band 2 % (5-11); Hematocrit 35.3 % (42.0-52.0); Mean Platelet Volume 10.8 fL (7.4-10.4); Neutrophil 65 % (42-75); Red Blood Cell (RBC) Count 4.07 mill/uL (4.70-6.10); White Blood Cell (WBC) Count 6.1 thou/uL (4.8-10.8)
[2017-11-15] MEDS: Heparin 5,000 UNITS/ML VIAL SC SCH (09:39)
[2017-11-15] MEDS: Doxazosin Mesylate 4 MG TAB PO SCH (09:39)
[2017-11-15] MEDS: Famotidine 20 MG TAB PO SCH (09:40)
[2017-11-15] MEDS: Carvedilol 3.125 MG TAB PO SCH (09:40)
[2017-11-15] MEDS: Allopurinol 100 MG TAB PO SCH (09:40)
[2017-11-15] MEDS: Gabapentin 100 MG CAP PO SCH (09:40)
--- NOTE | 2017-11-15 10:55 | DIS ---
DATE OF ADMISISON: 11/12/2017 DATE OF DISCHARGE: 11/15/2017 DISCHARGE DIAGNOSES: 1. Left gluteal herpes zoster. 2. Abdominal pain, multifactorial, improved. 3. End-stage renal disease with hemodialysis. 4. Medication noncompliance. 5. Cocaine abuse, active. 6. Severe ischemic cardiomyopathy with ejection fraction of 20%. 7. Severe three-vessel coronary artery disease, nonoperable medical management. 8. Diabetes mellitus type 2, insulin requiring. CONSULTATIONS: 1. Dr. Taylor with Nephrology service. 2. Dr. Guzman with GI service. PERTINENT LABORATORY DATA AND X-RAY FINDINGS: Creatinine ranged between 5.53-6.02 with estimated GFR of 13. Lactic acid level ranged between 1.8-2.9, total bilirubin ranged between 1.6-2.2, alkaline p hosphatase ranged between 175-233, troponin I ranged between 0.143-0.147, lipase 15. CBC showed a wh ite blood cell count ranged between 5.1-6.3, hemoglobin ranged between 11.8-14.0. Urine drug screen dated 11/13/2017, positive for cocaine and opiates. Hepatitis B surface antigen nonreactive, 017. CT of the abdomen and pelvis dated 11/12/2017 showed mild ascites and moderate anasarca. Chron ic stable findings noted, please see dictated report for full details. Portable chest x-ray dated showed automatic implantable cardioverter/defibrillator with cardiomegaly. A 2D transthorac ic echocardiogram dated 11/13/2017 showed left pleural effusion. Ejection fraction estimated at 15% with left atrial enlargement. Moderate mitral valve regurgitation. HOSPITAL COURSE: Patient was admitted to the telemetry unit after initially presenting with left glu teal pain, diagnosed with herpes zoster, placed on Valtrex therapy. The patient continued Valtrex th roughout the hospital course with some improvement in overall symptomatology. The patient was also n oted with abdominal pain, likely multifactorial given passive congestion due to end-stage renal disea se with mild ascites and anasarca. The patient underwent hemodialysis throughout the hospital course , tolerating multiple sessions without difficulty. The patient was evaluated by the GI service witho ut any specific recommendations for acute intervention and general conservative management. Telemetr y monitoring showed intermittent ventricular tachycardia with current AICD device in place. The valentina ent was titrated on Coreg 6.25 mg b.i.d. and overall clinically stabilized. Due to the patient's ove rall deconditioned status and noncompliance, the patient was evaluated and deemed an appropriate cand idate for home health services after discharge. The patient will also be set up for monitoring throu gh the [facility]. Overall, the patient clinically at baseline functional status and ready for discharge on 11/15/2017. DISCHARGE MEDICATIONS: 1. Allopurinol 100 mg 1 tab p.o. daily. 2. Enteric-coated aspirin 81 mg 1 tab p.o. daily. 3. Lipitor 20 mg p.o. at bedtime. 4. Coreg 6.25 mg p.o. b.i.d. 5. Cardura 8 mg p.o. daily. 6. Multivitamin 1 tab p.o. daily. 7. NPH insulin 20 units subcutaneously q.a.m. and 10 units subcutaneously at bedtime. 8. Imdur 60 mg 1 tab p.o. daily. 9. Nortriptyline 25 mg p.o. at bedtime. 10. Ranitidine 150 mg p.o. b.i.d. 11. Sucroferric oxyhydroxide 500 mg p.o. t.i.d. 12. Valtrex 500 mg 1 tab p.o. daily x7 days. FOLLOWUP: The patient may follow up with his primary care provider, Dr. Deric Llamas within 7 days o f discharge. Patient will follow up with Dr. Taylor with hemodialysis Tuesday, Tuesday, and Tue. CONDITION ON DISCHARGE: Fair. ACTIVITY: ad lissy. DIET: Heart healthy and ADA. CODE STATUS: FULL. DISPOSITION: Home with home health services, 11/15/2017. Total time preparing and coordinating discharge is 35 minutes.
--- NOTE | 2017-12-15 13:04 | EKG ---
Test Reason : Blood Pressure : / mmHG Vent. Rate : 084 BPM Atrial Rate : 084 BPM P-R Int : 190 ms QRS Dur : 162 ms QT Int : 438 ms P-R-T Axes : 045 -82 064 degrees QTc Int : 517 ms Normal sinus rhythm Left axis deviation Right bundle branch block Inferior infarct , age undetermined Abnormal ECG Confirmed by GARCIA ARMENDARIZ DO ([id number]), video effects editor JODI PHELAN ([id number]) on 12/15/2017 1:03:41 PM Referred By: Confirmed By:GARCIA ARMENDARIZ DO
== END 2017-11-15 12:43 | disposition home health service (06) | DRG 595 ==
LOC: ERS 10:33 → 2NO 15:19
PROVIDERS: ADMIT Internal Medicine; ATTEND Internal Medicine
PROC: 5A1D70Z Performance of Urinary Filtration, Intermittent, Less than 6 Hours Per Day (ICD-10-PCS; principal; 2017-11-12)
DX: B02.9 Zoster without complications (principal); N18.6 End stage renal disease; I13.2 Hypertensive heart and chronic kidney disease with heart failure and with stage 5 chronic kidney disease, or end stage renal disease; R18.8 Other ascites; E11.22 Type 2 diabetes mellitus with diabetic chronic kidney disease; K76.1 Chronic passive congestion of liver; I07.1 Rheumatic tricuspid insufficiency; I50.22 Chronic systolic (congestive) heart failure; E87.5 Hyperkalemia; Z91.15 Patient's noncompliance with renal dialysis; Z91.14 Patient's other noncompliance with medication regimen; Z95.810 Presence of automatic (implantable) cardiac defibrillator; Z86.73 Personal history of transient ischemic attack (TIA), and cerebral infarction without residual deficits; I25.5 Ischemic cardiomyopathy; F14.10 Cocaine abuse, uncomplicated; R16.2 Hepatomegaly with splenomegaly, not elsewhere classified; K80.80 Other cholelithiasis without obstruction; I50.810 Right heart failure, unspecified; Z99.2 Dependence on renal dialysis; Z79.4 Long term (current) use of insulin; R06.03 Acute respiratory distress; I48.91 Unspecified atrial fibrillation; I25.118 Atherosclerotic heart disease of native coronary artery with other forms of angina pectoris; F17.210 Nicotine dependence, cigarettes, uncomplicated
CPT/HCPCS: 36415; 71010; 74176; 80048; 80053; 80076; 80306; 80307; 81003; 81015; 82550; 82553; 83605; 83690; 84484; 85025; 85610; 85730; 87340; 90471; 90682; 90732; 90935; 93005; 93306; 96365; 96366; 96375; 99406; G0008; G0009; G0257; J1644; J1956; J2270; J2543; J7050; Q2036

== ENCOUNTER 2017-11-27 02:55 | Emergency (ER) | payer MEDICARE, OTHER | END 2017-11-27 03:32 | disposition home or self-care (01) | LOC: ERS 02:55 | DX: L89.322 Pressure ulcer of left buttock, stage 2 (principal); S80.862A Insect bite (nonvenomous), left lower leg, initial encounter; S80.861A Insect bite (nonvenomous), right lower leg, initial encounter; I11.0 Hypertensive heart disease with heart failure; I50.9 Heart failure, unspecified; E11.9 Type 2 diabetes mellitus without complications; E78.5 Hyperlipidemia, unspecified; Z99.2 Dependence on renal dialysis; F17.210 Nicotine dependence, cigarettes, uncomplicated; Z86.73 Personal history of transient ischemic attack (TIA), and cerebral infarction without residual deficits; W57.XXXA Bitten or stung by nonvenomous insect and other nonvenomous arthropods, initial encounter | CPT/HCPCS: 99283 ==

== ENCOUNTER 2018-07-03 06:13 | Inpatient (IN) | payer MEDICARE, MEDICAID ==
[2018-07-03] MEDS ORDERED: Insulin Regular 300 UNITS/3 ML VIAL ONE (06:36)
[2018-07-03] MEDS ORDERED: Dextrose 50% Abboject 50 ML SYRINGE ONE ×2 (06:36→10:07)
[2018-07-03] MEDS ORDERED: Sodium Bicarb 50 MEQ/50 ML Abboject 8.4% SYRINGE ONE (06:36)
[2018-07-03] MEDS ORDERED: Albuterol Sulfate 2.5 mg/3 ml Neb ONE (06:38)
[2018-07-03] MEDS ORDERED: Albuterol Sulfate 2.5 mg/0.5 ml Neb ONE (06:38)
[2018-07-03 06:42] LABS: Mean Corpuscular HGB CONC 33.2 g/dL (32.0-36.0); Mean Corpuscular Hemoglobin 30.2 pg (27.0-31.0); Mean Corpuscular Volume 90.8 fL (78.0-98.0); Mean Platelet Volume 10.5 fL (7.4-10.4); Platelet Count 89 thou/uL (130-400); RBC Distribution Width 15.8 % (11.5-14.5); Red Blood Cell (RBC) Count 3.32 mill/uL (4.70-6.10); White Blood Cell (WBC) Count 6.2 thou/uL (4.8-10.8)
[2018-07-03 06:51] LABS: Base Excess-Venous 6.1 mmol/L (0 (+/- 2.5)); Bicarbonate (HCO3v) 32.6 mmol/L (1.0-85.0); Hemoglobin - Calc 10.6 g/dL (12.0-18.0); Lactate 1.36 mmol/L (0.50-2.20); O2 Tension (PvO2) 48.5 mmHg (35.0-45.0); Potassium 5.7 mmol/L (3.4-4.7); T. Carbon Dioxide 34.4 mmol/L (1.0-85.0); pH (Venous) 7.373 (7.35-7.45); vO2 Saturation-calc 81.6 % (94-98)
[2018-07-03 07:08] LABS: ALT (SGPT) 10 U/L (8-55); AST (SGOT) 21 U/L (5-34); Alkaline Phosphatase 280 U/L (40-150); Anion Gap 21 mmol/L (10-20); BUN (Urea Nitrogen) 61 mg/dL (8.4-25.7); Bilirubin, Total 1.7 mg/dL (0.2-1.2); Calc. Creatinine Clearance 0 mL/min (70-130); Calcium 9.1 mg/dL (7.8-10.44); Carbon Dioxide 27 mmol/L (22-29); Chloride 96 mmol/L (98-107); Estimated GFR-MDRD 8; Globulin 4.3 g/dL (2.4-3.5); Glucose 102 mg/dL (70-105); Magnesium 2.5 mg/dL (1.6-2.6); Protein, Total 8.3 g/dL (6.0-8.3); Sodium 138 mmol/L (136-145)
[2018-07-03 07:12] LABS: CKMB 1.4 ng/mL (0-6.6); Troponin I 0.035 ng/mL (< 0.028)
[2018-07-03 07:23] LABS: Band 1 % (5-11); Burr Cells SLIGHT = 2-5 cells (100X) (0-1/hpf); Eosinophils 18 % (0-10); Lymphocytes 23 % (21-51); MDiff Complete? YES; Monocytes 13 % (0-10); Neutrophil 45 % (42-75); PLT Morphology Comment Appears Decreased; Polychromasia SLIGHT = 2-3 cells (100X) (0-2/hpf)
--- NOTE | 2018-07-03 08:54 | RAD ---
PORTABLE CHEST ONE VIEW: Date: 07-03-18 Time: 6:22 a.m. History: Altered mental status, fall. FINDINGS/IMPRESSION: Comparison is made of exam of 11-12-17. The heart is enlarged. Left sided ICD remains in place. The lungs are well expanded without lobar con solidation, pneumothoraces, or pleural effusions. There is atelectatic change in the left lung. POS: [facility]
[2018-07-03 09:03] LABS: Actual Bicarbonate (HCO3a) 32.2 mEq/L (22-28); Base Excess (BEa) 6.3 mEq/L (-2.0 to +3.0); CO2 Tension 54.1 mmHg (35.0-45.0); Hemoglobin (Hb) 9.4 g/dL (14.0-18.0); O2 Tension (PaO2) 65.7 mmHg (80.0-100.0); pH, Arterial 7.39 (7.35-7.45)
[2018-07-03 09:04] LABS: ALV-art Gradient 16.405 (0-20); Analyzer IN Cardio ER; Calcium, Ionized 1.1 mmol/L (1.12-1.30); Puncture Site LRA
[2018-07-03 10:10] LABS: Troponin I 0.044 ng/mL (< 0.028)
[2018-07-03] MEDS ORDERED: PROPOFOL 0 ML ONE (10:53)
[2018-07-03] MEDS ORDERED: Fentanyl 100 MCG/2 ML VIAL ONE (10:53)
--- NOTE | 2018-07-03 11:32 | CT ---
CT OF HEAD NONCONTRAST: Indication: Altered mental status. FINDINGS: There is focal encephalomalacia of the left temporoparietal lobe with associated ex vacuo dilatation of the left lateral ventricle. No intracranial hemorrhage, mass effect, or midline shift. There is mi ld chronic ischemic disease. Re-demonstration of chronic lacunar infarction of the left centrum semio aditya extending into the left waite radiata and left basal ganglia. IMPRESSION: 1. No acute intracranial hemorrhage or mass effect. 2. Chronic ischemic disease and remote infarctions. POS: [facility]
[2018-07-03 11:41] LABS: Actual Bicarbonate (HCO3a) 30.7 mEq/L (22-28); Base Excess (BEa) 5.2 mEq/L (-2.0 to +3.0); O2 Tension (PaO2) 155.5 mmHg (80.0-100.0); pH, Arterial 7.41 (7.35-7.45)
[2018-07-03 11:42] LABS: Calcium, Ionized 1.1 mmol/L (1.12-1.30); Hemoglobin (Hb) 10.1 g/dL (14.0-18.0); Puncture Site LRA
[2018-07-03 11:45] LABS: HBSAg Index 0.21 S/CO (0-0.99); Hep B Surf Ag Non-Reactive S/CO (NonReactive)
[2018-07-03] MEDS ORDERED: Midazolam HCl 2 mg/2 ml Vial ONE (11:45)
[2018-07-03] MEDS ORDERED: Lacri-Lube Opth Oint 3.5 GM TUBE EA EYE PRN (11:53)
[2018-07-03] MEDS ORDERED: Acetaminophen 325 MG Suppository PR PRN (11:53)
[2018-07-03] MEDS ORDERED: Insulin Regular 300 UNITS/3 ML VIAL SC PRN ×2 (11:53)
[2018-07-03] MEDS ORDERED: Acetaminophen 325 MG TAB PO PRN (11:59)
[2018-07-03] MEDS ORDERED: Acetaminophen 650 MG Suppository PR PRN (11:59)
[2018-07-03] MEDS ORDERED: Senokot 8.6 MG TAB PO PRN (11:59)
[2018-07-03] MEDS ORDERED: Dextrose 5% in Water 1,000 ML IV PRN (11:59)
[2018-07-03] MEDS ORDERED: Dextrose 50% Abboject 50 ML SYRINGE SLOW IVP PRN (11:59)
--- NOTE | 2018-07-03 12:29 | HP ---
DATE OF ADMISSION: 07/03/2018 PRIMARY CARE PHYSICIAN: Dr. Deric Llamas. PRIMARY CERTIFIED LACTATION EDUCATOR: Dr. Brandon August. PRIMARY PICCOLO MECHANIC: Dr. Tellez. CHIEF COMPLAINT: Syncopal episode at dialysis this morning. HISTORY OF PRESENT ILLNESS: The patient is a 57-year-old male with coronary artery disease, severe i schemic cardiomyopathy with ejection fraction 15% to 20%, diabetes mellitus type 2, hypertension, his tory of CVA, and end-stage renal disease on hemodialysis, was brought in to the emergency room from [facility] after a syncopal episode. There was no injury reported. The staff caught him bef ore he hit the ground. His last dialysis was on Tuesday. Please note that there is no family at the bedside. He only opens eyes to verbal stimuli and then goes back to sleep. No further information i s available from the patient. In the emergency room, his initial vital signs showed temperature 97.7, respirations 12, pulse rate o f 64, blood pressure of 99/72 with O2 saturation of 98% on room air. His chest x-ray was negative fo r infiltrate. A CT scan of the brain was negative for acute findings. The blood gases showed pH of 7.39 with pCO2 of 54.1, pO2 of 65.7 with bicarbonate of 32.2 on room air. He was started on O2 suppl ementation. Due to hyperkalemia, he received sodium bicarbonate, nebulizer treatment, insulin D50. PAST MEDICAL HISTORY: 1. Coronary artery disease. 2. Chronic systolic heart failure, ejection fraction 15% to 20% secondary to ischemic cardiomyopathy . 3. Diabetes mellitus type 2. 4. Hypertension. 5. Dyslipidemia. 6. End-stage renal disease, on hemodialysis Tuesday, Tuesday, Tuesday. 7. History of cerebrovascular accident. PAST SURGICAL HISTORY: 1. AICD. 2. Dialysis access. ALLERGIES: No known drug allergies. CURRENT HOME MEDICATIONS: Cannot be obtained from the patient due to current cognitive status. SOCIAL HISTORY: The patient currently lives at home. No smoking, alcohol, drug use. He is FULL COD E. We will confirm the DPOA with the family. The patient was positive for cocaine in 10/2017. FAMILY HISTORY: Positive for hypertension and diabetes per review of record, REVIEW OF SYSTEMS: Cannot be reliably obtained from the patient due to current cognitive status. PHYSICAL EXAMINATION: VITAL SIGNS: As discussed above. GENERAL: A 57-year-old male with altered mentation. Responding to verbal stimuli. He was seen in [facility]. HEENT: Head atraumatic, normocephalic. Sclerae are anicteric. Moist mucous membrane, no oral lesio n appreciated. NECK: Supple, no JVD appreciated. No carotid bruit. LUNGS: Showed diminished air entry at bilateral bases with scattered rhonchi. No wheezing. MUSCULOSKELETAL: No significant accessory muscle use. HEART: S1 and S2 present. Regular rate and rhythm, 2/6 systolic murmur over the mitral area. No he aves or pulsation. ABDOMEN: Soft. Bowel sounds present. No rebound, guarding appreciated. EXTREMITIES: Trace edema in bilateral lower extremities. There is fistula in the right upper extrem ity with palpable thrill. NEUROLOGIC/PSYCHIATRIC: Could not be done due to current cognitive status. SKIN: Warm and dry. LYMPH NODES: No palpable lymph nodes in the neck. PERIPHERAL VASCULAR: Radial pulses palpable bilaterally. LABORATORY AND X-RAY FINDINGS: CBC showed WBC 6.2 with hemoglobin 10, hematocrit 30.2, platelet coun t of 89. ABGs as discussed above. Chemistries showed sodium 138, potassium 6, chloride 96, bicarbon ate 27, BUN 61, creatinine 8.79, total bilirubin 1.7. Troponin in the indeterminate range. Ammonia was 59. Chest x-ray and CT scan of the brain by my review as discussed above. EKG by my review showed possib le paced rhythm. IMPRESSION: 1. Toxic metabolic encephalopathy of unclear etiology. 2. Acute hypoxic and hypercapnic respiratory failure. 4. Severe three-vessel coronary artery disease, non-operable with ejection fraction 20% range. 5. History of drug abuse including cocaine. 6. Medication noncompliance. 7. Diabetes mellitus type 2. 8. Hypertension. 9. Hyperlipidemia. 10. Status post AICD. 11. Elevated troponins, probably secondary to demand ischemia. PLAN: The patient will be monitored in the intermediate care unit. We will arrange for emergent hem odialysis. We will consult Critical Care and Cardiology, and Nephrology. We will to get frequent ne uro checks. We will check lactic acid and ketones. Urine drug screen will be done. Blood cultures have been completed. We will start empiric antibiotics for possible infection as a source of encepha lopathy. We will discuss the plan of care with the family when they arrive.
[2018-07-03] MEDS ORDERED: Aspirin 300 MG Suppository PR SCH (12:30)
--- NOTE | 2018-07-03 12:55 | CON ---
DATE OF CONSULTATION: 07/03/2018 This encompassed 70 minutes of time. Of that time, greater than 50% was spent with the patient and/o r on the patient's unit in the hospital. REASON FOR CONSULTATION: Altered mental status, apnea. HISTORY OF PRESENT ILLNESS: Mr. Guy is a 57-year-old male who presented to the ER last night fo r evaluation of a "syncopal episode". Apparently, he had presented to dialysis as an outpatient and began to slump to the ground. The staff there caught him before he reached the ground. He has been encephalopathic since admission over to [address] [place] [address]. They have been concerned about his mental status an d have requested that he be transferred to a higher level of care. The patient is unable to give [facility] history at this time, so what I have is obtained from speaking with nursing staff, the attending physician, and reading the notes in the chart. PAST MEDICAL HISTORY: 1. End-stage renal disease requiring 3 times weekly hemodialysis. 2. Stroke. 3. Hyperlipidemia. 4. Hypercholesterolemia. 5. Hypertension. 6. Congestive heart failure. PAST SURGICAL HISTORY: 1. Fistula placement in the right arm. 2. Defibrillator placement. PSYCHIATRIC HISTORY: Negative. SOCIAL HISTORY: Apparently smokes 1 cigarette per day, smoked more heavily in the past. Does not co nsume alcohol. ALLERGIES: None. MEDICATIONS PRIOR TO ADMISSION: Valtrex, Velphoro 500 mg t.i.d., deprizine 150 mg b.i.d., Pamelor 25 mg nightly, Imdur 60 mg daily, NPH insulin 70/30 20 units subcu every a.m. and 10 units every p.m. D ialyvite 1 tablet daily, doxazosin 8 mg daily, Coreg 6.25 mg b.i.d., atorvastatin 20 mg daily, aspiri n 81 mg daily, allopurinol 100 mg daily. REVIEW OF SYSTEMS: Review of systems cannot be obtained from the patient as he is unable to verbaliz e. PHYSICAL EXAMINATION: VITAL SIGNS: Blood pressure was running about 109/55, pulse 80, respirations 20, O2 sat 100% on room air. GENERAL: The patient is somnolent. I am able to arouse him to get him to respond a slight pain. HEENT: Pupils are 5 mm and reactive to light. Sclerae icteric. Oropharynx dry. NECK: Without adenopathy or JVD. LUNGS: Clear without wheezing or rhonchi. CARDIAC: S1, S2 regular, without murmur. ABDOMEN: Soft, obese, nontender, nondistended. EXTREMITIES: Trace edema throughout. LABORATORY DATA: White blood cell count 6.2, hematocrit 30.2, platelet count 89, pH 7.39, pCO2 54, P O2 of 65 and that was on room air. Sodium 137, potassium 5.7, chloride 96, CO2 27, BUN 61, creatinin e 8.7, glucose 102, calcium 9.1, troponin 0.04. Ammonia level was 59. Chest x-ray showed cardiomegaly, ICD. There is no evidence of infiltrate or effusion. Brain CT, fin al report is pending. Preliminary report showed no evidence of intracranial hemorrhage or mass effec t. He has chronic ischemic disease and remote infarctions. ASSESSMENT: 1. Altered mental status. 2. Obvious apnea. 3. End-stage renal disease requiring hemodialysis. RECOMMENDATIONS: 1. I would recommend a Neurology consultation. This patient may need a MRI to rule out mid brain or main stem infarct. There is really nothing about his renal profile or hepatic profile that looks li ke this is uremic encephalopathy or hepatic encephalopathy. His CO2 is really not high enough that I would be worried about this being hypercapnic encephalopathy. 2. He is being moved to the [facility] to complete hemodialysis while on BiPAP. The BiPAP is being applie d because of his severe apnea. Thank you for the referral. We will follow.
[2018-07-03 13:04] LABS: Lactic Acid 0.7 mmol/L (0.5-2.2)
[2018-07-03 13:13] LABS: Troponin I 0.038 ng/mL (< 0.028)
[2018-07-03] MEDS: cefTRIAXone\\ROCEPHIN 1 GM in Sodium Chloride 0.9% 100 ML IVPB SCH (16:47)
[2018-07-03 20:16] LABS: Anion Gap 17 mmol/L (10-20); BUN (Urea Nitrogen) 30 mg/dL (8.4-25.7); Calc. Creatinine Clearance 30 mL/min (70-130); Carbon Dioxide 29 mmol/L (22-29); Chloride 96 mmol/L (98-107); Estimated GFR-MDRD 13; Glucose 104 mg/dL (70-105); Potassium 4.3 mmol/L (3.5-5.1); Sodium 138 mmol/L (136-145)
[2018-07-03] MEDS: Famotidine/PF 20 mg/2ml Vial SLOW IVP SCH (20:25)
[2018-07-03] MEDS: Docusate 100 MG CAP PO SCH (20:25)
--- NOTE | 2018-07-04 01:14 | CON ---
DATE OF CONSULTATION: 07/03/2018 HISTORY OF PRESENT ILLNESS: Mino Guy is a 57-year-old black male initially evaluated in 09/2010. He was admitted with increasing shortness of breath, lower extremity edema, and abdominal edema. He did have 2-3 pillow orthopnea and episodes of paroxysmal nocturnal dyspnea. He denied any chest discomfort. He had a stroke in 2006 with some right-sided residual hemiparesis. Ejection fraction was 20%-25%. His blood pressure went as high as 240/130. He was diuresed and underwent cardiac catheterization which revealed a 50% proximal LAD, 70% proximal LAD, and 50% mid LAD. Circumflex a 70 % proximal stenosis and an 80% proximal stenosis. Right coronary artery a 60% proximal stenosis and a 60% distal stenosis. A 27 mm of contrast was used during catheterization. He was seen by Dr. Sebastian felt that he was too deconditioned to undergo bypass surgery at that time. During that hospitalization, he also had an episode of nonsustained ventricular tachycardia and underwent placement of a dual chamber ICD. He continued to intermittently be followed in the office. Surprisingly in 08/2012, ejection fraction was 60%-65% with mild mitral regurgitation, mild tricuspid regurgitation. He ultimately was on dialysis. He has been hospitalized multiple times over the years for congestive heart failure. Usually the problem is noncompliance with fluid restriction. Also, when he is admitted, his urine drug screen is always positive for cocaine. In 09/2017, he was admitted with chest discomfort and nuclear scan revealed findings suspicious for apical ischemia extending to the anterior wall with left ventricular ejection fraction of 19%. Also at that admission, his urine drug screen was positive for cocaine. He was last seen in the office on 06/26/2018. He had chest pain that would last for seconds at a time. Blood pressure on that visit is 123/68. However, many times in the group home, his systolic pressure would be below 100. He now is admitted with a syncopal episode that occurred to dialysis. He cannot give any history regarding the event. Apparently, the staff caught him before he hit the ground. He was minimally responsive here and apparently required BiPAP initially and ultimately that could be stopped and he was more alert at the present time. He denies any chest discomfort or shortness of breath currently. PAST MEDICAL HISTORY: Hypertension; hyperlipidemia; diabetes; stroke in 2006; end-stage renal disease on dialysis; three-vessel coronary artery disease, felt not to be a CABG candidate; obstructive sleep apnea; severe left ventricular dysfunction with ejection fraction of 20%, although in 08/2012, his ejection fraction was 60%-65%. OPERATIONS: AICD placement, AV fistula placement. MEDICATIONS: Allopurinol 100 daily, aspirin 81 daily, atorvastatin 20 mg at bedtime, carvedilol 6.25 b.i.d., Sensipar 30 daily, Cardura 8 mg daily, folic acid daily, gabapentin 100 mg b.i.d., insulin, isosorbide mononitrate 60 daily, levothyroxine unknown dose daily, nortriptyline (Pamelor) 25 q.p.m., ranitidine 150 b.i.d., Ranexa 1000 b.i.d. ALLERGIES: None. SOCIAL HISTORY: Lives in group home. He does not smoke at the present time, he did in the past. Essentially every time he was admitted, his urine drug screen is positive for cocaine. FAMILY HISTORY: Mother had coronary artery disease. REVIEW OF SYSTEMS: A 12-point review of systems was difficult to obtain at the present time due to his mental status. PHYSICAL EXAMINATION: VITAL SIGNS: Blood pressure 110/40, pulse 69. HEENT: PERRL. NECK: Supple. LUNGS: Chest is clear. CARDIAC: S1, S2 normal without any S3, S4 or murmurs. ABDOMEN: Obese. Normal bowel sounds. No tenderness. EXTREMITIES: Revealed trace pretibial edema. NEUROLOGIC: Grossly intact except for his garbled speech at times. SKIN: Warm and dry. LABORATORY AND DIAGNOSTIC DATA: EKG revealed normal sinus rhythm with right bundle branch block. Interrogation of his ICD found that the right atrial lead was not functioning, possible fracture. Also, he possibly has fracture of his right ventricular lead. The device was programmed to VVI 40 and therapies were turned off. Also, his device needs to be replaced. Hemoglobin 10.0, hematocrit 30.2, white count 6200, platelets 89,000. A pH of 7.41, pCO2 of 50, pO2 of 155.5. Sodium 137, potassium 5.7, chloride 101, carbon dioxide 27, creatinine 8.79, BUN 61, troponin I 0.044. IMPRESSION: 1. Syncopal episode of uncertain etiology. Certainly, it could have been due to hypotension after dialysis. His ICD is malfunctioning. However, I doubt that he had anything to do with his syncopal episode unless he had an episode of ventricular tachycardia. 2. Metabolic encephalopathy which apparently is clearing. This certainly may have been due to cocaine and his urine drug screen is pending at this time. 3. Chronic systolic heart failure with ejection fraction of 20%. 4. Three-vessel coronary artery disease, felt not to be an operative candidate for CABG in 2009. 5. End-stage renal disease on dialysis. 6. Hypercholesterolemia. 7. Hypertension. 8. Diabetes. 9. Benign prostatic hypertrophy. 10. Status post placement of dual chamber ICD. The device needs to be replaced as well as probable replacement of the right atrial and right ventricular leads. Apparently, global category manager has tried to arrange this with lead extraction in [place], however, that could never be set up. 11. Former smoker. 12. History of noncompliance. PLAN: The patient's metabolic encephalopathy appears to be clearing at this time. He does need to have his ICD change and Electrophysiology has been contacted. JENNIFER
[2018-07-04 04:30] LABS: ALT (SGPT) 9 U/L (8-55); AST (SGOT) 19 U/L (5-34); Albumin 3.8 g/dL (3.5-5.0); Alkaline Phosphatase 256 U/L (40-150); Anion Gap 18 mmol/L (10-20); BUN (Urea Nitrogen) 34 mg/dL (8.4-25.7); Bilirubin, Total 1.6 mg/dL (0.2-1.2); Calc. Creatinine Clearance 27 mL/min (70-130); Calcium 9.3 mg/dL (7.8-10.44); Carbon Dioxide 27 mmol/L (22-29); Chloride 96 mmol/L (98-107); Estimated GFR-MDRD 11; Globulin 4.4 g/dL (2.4-3.5); Glucose 135 mg/dL (70-105); Potassium 4.5 mmol/L (3.5-5.1); Protein, Total 8.2 g/dL (6.0-8.3); Sodium 136 mmol/L (136-145)
[2018-07-04 04:40] LABS: Band 1 % (5-11); Eosinophils 13 % (0-10); Lymphocytes 15 % (21-51); MDiff Complete? YES; Mean Corpuscular HGB CONC 34.9 g/dL (32.0-36.0); Mean Corpuscular Hemoglobin 31.5 pg (27.0-31.0); Mean Corpuscular Volume 90.4 fL (78.0-98.0); Mean Platelet Volume 9.5 fL (7.4-10.4); Monocytes 10 % (0-10); Neutrophil 61 % (42-75); PLT Morphology Comment Appears Decreased; Platelet Count 90 thou/uL (130-400); RBC Distribution Width 15.9 % (11.5-14.5); Red Blood Cell (RBC) Count 3.18 mill/uL (4.70-6.10); White Blood Cell (WBC) Count 5.8 thou/uL (4.8-10.8)
--- NOTE | 2018-07-04 07:54 | RAD ---
PORTABLE CHEST 1 VIEW: Date: 07/04/18 Time: 0409 hours HISTORY: Respiratory distress. Altered mental status. Syncope. FINDINGS/IMPRESSION: Comparison made with exam from previous day. The heart is enlarged. Left-sided AICD remains in place. No lobar consolidation, pneumothoraces, buck k pulmonary edema, or large effusions are noted. There is mild prominence of the pulmonary vascularit y. POS: [facility]
--- NOTE | 2018-07-04 08:57 | PRG ---
DATE OF SERVICE: 07/04/2018 This morning he is awake, alert, responsive, denies difficulty breathing. PHYSICAL EXAMINATION: VITAL SIGNS: Temperature 97, pulse 75, respirations 14, O2 sats 90% on room air, blood pressure 130/ 51. NEUROLOGIC: Awake, alert, responsive. CHEST: Decreased breath sounds, no wheezing. CARDIAC: Normal S1-S2. No gallops. ABDOMEN: Soft. No masses. LABORATORY: Platelet count is 90,000. Otherwise, rest of the lab is unremarkable. Creatinine is 6.13. IMPRESSION: 1. Chronic renal failure. 2. Congestive heart failure. 3. Morbid obesity. 4. Sleep apnea. PLAN: Continue noninvasive ventilation. Continue dialysis, supportive care and PT. I will follow.
[2018-07-04] MEDS ORDERED: Aspirin 300 MG Suppository PR SCH (09:00)
[2018-07-04] MEDS: Docusate 100 MG CAP PO SCH ×2 (11:41→21:04)
[2018-07-04] MEDS: Aspirin 325 MG TAB PO SCH (11:41)
--- NOTE | 2018-07-04 12:46 | CON ---
DATE OF CONSULTATION: 07/03/2018 REQUESTING PHYSICIAN: Antonio Sky M.D. REASON FOR CONSULTATION: The need for maintenance hemodialysis. IMPRESSION: 1. End-stage renal disease, hemodialysis dependent on Tuesday, Tuesday, Tuesday could not dialyze to day because of the mental status change and syncope. 2. Hyperkalemia in the context of end-stage renal disease. PLAN: 1. Since the patient is being admitted, the patient to be dialyzed today with ultrafiltration as diane erated by hemodynamics. 2. Further management to be dependent on the clinical course. HISTORY OF PRESENT ILLNESS: This is a 57-year-old gentleman with end-stage renal disease, hemodialys is dependent, congestive heart failure with estimated ejection fraction of about 15%-20%, who present ed to dialysis today, but could not dialyze given the findings. The patient seems to be too lethargi c and syncope and so patient was brought to the ER. On presentation, patient was noted to be hyperka lemic with potassium admission, possible hemodialysis with renal consultation being requested. PAST MEDICAL HISTORY: Coronary artery disease, congestive heart failure, systolic, type 2 diabetes, hypertension, dyslipidemia, end-stage renal disease and CVA. MEDICATIONS: Reviewed as documented on med list. ALLERGIES: No known drug allergies. SOCIAL HISTORY: Remote history of illicit drug use, denies alcohol use. FAMILY HISTORY: Significant for diabetes. REVIEW OF SYSTEMS: Highly limited given the expressive aphasia in this patient, otherwise, remarkabl e. PHYSICAL EXAMINATION: GENERAL: The patient was found to be alert. VITAL SIGNS: Afebrile with temperature 97, pulse 90, respiratory of 18, O2 sat 95% with a blood pres sure 110/40. HEENT: Unremarkable. CARDIOVASCULAR SYSTEM: First and heart sounds were heard. RESPIRATORY SYSTEM: Clear to auscultation. DIGESTIVE SYSTEM: Revealed a benign abdomen with positive bowel sounds. EXTREMITIES: No peripheral edema. SKIN: No new gross rash. LYMPHATICS: No peripheral lymphadenopathy. SUMMARY: A 57-year-old gentleman with end-stage renal disease who presented here with mental status change and severe hyperkalemia. Thank you for this consultation. We will follow with you.
--- NOTE | 2018-07-04 15:02 | PRG ---
DATE OF SERVICE: 07/04/2018 SUBJECTIVE: The patient is seen and examined at the bedside. He is able to talk to me. He is sitti ng up in his bed. OBJECTIVE: VITAL SIGNS: Blood pressure is 127/55, pulse is 72, temperature is 97.0, respiratory rate is 12, O2 saturation is 96% on room air. HEENT: His head is atraumatic, normocephalic. Eyes are PERRLA. Sclerae is nonicteric. Oral mucosa is moist. NECK: Supple, no lymphadenopathy. LUNGS: Breath sounds diminished at both bases. CARDIOVASCULAR: S1 and S2, somewhat irregular. No S3, no S4. ABDOMEN: Obese, nontender. EXTREMITIES: A 1+ peripheral edema, similar bilaterally. NEUROLOGICAL EXAMINATION: He is able to move his all 4 extremities. There are not any motor deficit s. Cranial nerves are intact. LABORATORY DATA: Showed glucose is ranging from 124-224. Sodium of 136, potassium 4.5, chloride 96, CO2 of 27, BUN 34, creatinine 6.13, total bilirubin 1.6, alkaline phosphatase 256, globulin 4.4. Wh ite count of 5.8, hemoglobin 10.0, hematocrit 28.8, platelet count is 90. IMPRESSION: 1. Syncope with hypotension. This was most likely related to a dialysis, fluid removal. 2. Implantable cardioverter defibrillator malfunctioning. Electrophysiology was contacted and the p [facility] is going to have consultation with them for the new implantable cardioverter defibrillator [employer]. 3. Metabolic encephalopathy, of unclear etiology. This could be multifactorial with his hypotension . 4. Chronic systolic heart failure with ejection fraction of 20% only. 5. Diabetes mellitus, type 2. 6. End-stage renal disease, on dialysis. 7. Hyperlipidemia. 8. Coronary artery disease, 3 vessels, not a candidate for coronary artery bypass grafting. 9. Benign prostatic hypertrophy. PLAN: Clinically, he improved a lot, but we are still waiting for Neurology to evaluate his conditio n and look for etiology of that issue. Probably this was transient hypoperfusion of the brain second nneka to hypovolemia secondary to dialysis.
[2018-07-04] MEDS: cefTRIAXone\\ROCEPHIN 1 GM in Sodium Chloride 0.9% 100 ML IVPB SCH (15:10)
--- NOTE | 2018-07-04 16:10 | PDOC.CTH ---
<Kylie Isabel - Last Filed: 07/04/18 16:03> Cardiology Progress Note - Subjective EP progress note: Patient seen and evaluated. No new cardiac concerns or complaints. Denies heart racing, palpitations, chest pain, pressure, stroke like symptoms. - ROS not able to obtain ROS (disoriented) - Objective Vital Signs Temp Pulse Pulse Pulse Resp BP BP 07/04/18 15:17 97.1 F L 75 07/04/18 11:51 97.0 F L 72 12 07/04/18 10:27 74 75 136/62 141/54 H 07/04/18 07:48 97.4 F L 75 14 07/04/18 07:38 97.4 F L 75 14 07/04/18 06:04 74 16 07/04/18 04:32 97.0 F L 81 12 BP Pulse Ox Pulse Ox Pulse Ox 07/04/18 15:17 108/50 L 99 07/04/18 11:51 127/55 L 96 07/04/18 10:27 98 98 07/04/18 07:48 98 07/04/18 07:38 134/51 L 98 07/04/18 06:04 98 07/04/18 04:32 145/55 H 97 Weight 259 lb 7.745 oz 07/03/18 07/04/18 07/05/18 06:59 06:59 06:59 Intake Total 900 700 Output Total 2000 Balance -1100 700 - Physical Examination General/Neuro: NAD, other: (A/O x name only) Lungs: unlabored respirations Heart: RRR Abdomen: NT/ND, soft (obese) - Telemetry Telemetry Rhythm: NSR - Labs Result Diagrams: 07/04/18 03:47 07/04/18 03:47 Troponin/CKMB CK-MB (CK-2) 1.4 ng/mL (0-6.6) 07/03/18 06:25 Troponin I 0.038 ng/mL (< 0.028) H 07/03/18 12:38 - Assessment/Plan 1. Malfunctioning A/V leads on ICD. Generator at [employer]. Current set to VVI 40. All other therapies off. If aggressive treatment is pursued, patient would need lead revision and generator change, likely in [place] for lead extraction. However, patient is unable to consent at this time and we are waiting for his mental status to improve. 2. Syncope, unknown etiology- thought to be hypotensive post HD vs VT not captured by malfunctioning ICD 3. Metabolic encephalopathy- resolving 4. Suspected active cocaine use, anuric and unable to do UTS. There are severe reservation about repairing/replacing his ICD at this time as he is non complaint, has poor followup, and is possibly still using cocaine. Will continue to follow. <Sven Emerson - Last Filed: 07/05/18 09:13> Cardiology Progress Note - Objective Vital Signs Temp Pulse Resp BP BP Pulse Ox 07/05/18 08:00 97.8 F 75 16 135/63 96 07/05/18 07:38 78 16 95 07/05/18 04:32 97.3 F L 75 14 119/58 L 94 L 07/04/18 21:20 76 18 96 Weight 268 lb 8 oz 07/04/18 07/05/18 07/06/18 06:59 06:59 06:59 Intake Total 900 700 Output Total 2000 Balance -1100 700 - Labs Result Diagrams: 07/05/18 05:01 07/05/18 05:01 Troponin/CKMB CK-MB (CK-2) 1.4 ng/mL (0-6.6) 07/03/18 06:25 Troponin I 0.038 ng/mL (< 0.028) H 07/03/18 12:38 Attending Addendum - Attending Addendum Date/Time: 07/05/18 0911 I personally evaluated the patient and discussed the management with Ms Isabel. I agree with the History, Examination, Assessment and Plan documented above with any addition or exceptions noted below.
--- NOTE | 2018-07-04 20:46 | PRG ---
DATE OF SERVICE: 07/04/2018 SUBJECTIVE: The patient is seen and examined today, feeling much better, very eager to go home, note d with the following vital signs. PHYSICAL EXAMINATION: VITAL SIGNS: Afebrile with temperature 97.7, pulse 73, respiratory rate 20, O2 sat 100%, blood press ure 147/73. HEENT: Unremarkable with moist oral mucosa. Neck is supple. No conjunctival injection or icterus. CARDIOVASCULAR: First and second heart sounds were heard. RESPIRATORY: Clear to auscultation. DIGESTIVE: Revealed a benign abdomen. EXTREMITIES: No peripheral edema noted. NEUROLOGIC: Revealed a patient that he has expressive aphasia which is not new. IMPRESSION: 1. End-stage renal disease, hemodialysis dependent. 2. Mental status change likely in the context of problem #3. 3. Toxic metabolic encephalopathy. PLAN: 1. There is no indication for hemodialysis today; therefore, we will continue with the patient's catrachito lysis on a Tuesday, Tuesday, and Tuesday schedule. 2. Further management will be dependent on the clinical course. From the renal standpoint, the [facility] ent is good for discharge.
[2018-07-04] MEDS: Famotidine/PF 20 mg/2ml Vial SLOW IVP SCH (21:03)
[2018-07-05 05:33] LABS: ALT (SGPT) 8 U/L (8-55); AST (SGOT) 17 U/L (5-34); Albumin 3.8 g/dL (3.5-5.0); Alkaline Phosphatase 242 U/L (40-150); Anion Gap 20 mmol/L (10-20); BUN (Urea Nitrogen) 45 mg/dL (8.4-25.7); Bilirubin, Total 1.6 mg/dL (0.2-1.2); Calc. Creatinine Clearance 18 mL/min (70-130); Calcium 9.2 mg/dL (7.8-10.44); Carbon Dioxide 26 mmol/L (22-29); Chloride 96 mmol/L (98-107); Estimated GFR-MDRD 9; Globulin 4.3 g/dL (2.4-3.5); Glucose 114 mg/dL (70-105); Protein, Total 8.1 g/dL (6.0-8.3); Sodium 137 mmol/L (136-145)
[2018-07-05 06:43] LABS: Band 1 % (5-11); Eosinophils 11 % (0-10); Hemoglobin 9.2 g/dL (14.0-18.0); Lymphocytes 22 % (21-51); MDiff Complete? YES; Mean Corpuscular Hemoglobin 30.7 pg (27.0-31.0); Mean Corpuscular Volume 90.3 fL (78.0-98.0); Mean Platelet Volume 10.3 fL (7.4-10.4); Monocytes 7 % (0-10); Neutrophil 59 % (42-75); PLT Morphology Comment Appears Decreased; Platelet Count 83 thou/uL (130-400); Polychromasia SLIGHT = 2-3 cells (100X) (0-2/hpf); RBC Distribution Width 15.4 % (11.5-14.5); Schistocytes SLIGHT = 2-5 cells (100X) (0-1/hpf); White Blood Cell (WBC) Count 5.2 thou/uL (4.8-10.8)
--- NOTE | 2018-07-05 08:30 | PRG ---
DATE OF SERVICE: 07/05/2018 SUBJECTIVE: This morning, he is awake, alert, and responsive. He is noncompliant with his CPAP. Hi s creatinine is 7.59. Potassium is 5. He denies any difficulty breathing. OBJECTIVE: VITAL SIGNS: His sats are 98% on room air, temperature 97, blood pressure is 108/58. CHEST: No wheezing. CARDIAC: Normal S1 and S2. No gallops. ABDOMEN: Soft, no masses. IMPRESSION: Morbid obesity, sleep apnea, renal failure, severe deconditioning, noncompliance. PLAN: Continue dialysis. I encouraged he stay on his CPAP. Encouraged to lose weight. We can see him in the office if he wants to in about a month.
[2018-07-05] MEDS: Magnesium Oxide 250 MG TAB PO SCH (08:46)
[2018-07-05] MEDS: Docusate 100 MG CAP PO SCH ×2 (08:46→21:07)
[2018-07-05] MEDS: Aspirin 325 MG TAB PO SCH (08:46)
--- NOTE | 2018-07-05 09:24 | CON ---
DATE OF CONSULTATION: 07/03/2018 This is an electrophysiology consultation dictated as scribe for Dr. Sven Emerson. REFERRING PHYSICIAN: Pan Tellez M.D. REASON FOR CONSULTATION: ICD management, malfunctioning ICD. HISTORY OF PRESENT ILLNESS: Mr. Guy is a 57-year-old -Serbian male with a very complica kaveh past medical history. He presented to the hospital in this episode after a syncopal episode foll owing dialysis. The etiology of his syncope is unclear. 911 was called and he presented to the hosp [facility] for further evaluation. He was minimally responsive initially and was on BiPAP for a while. Hi s mental status has improved somewhat since that time, though he has remained disoriented and somewha t confused, albeit pleasantly since he was admitted on today. He does have inclusion of a dual chamb er ICD that was placed in 09/2010 for history of ventricular arrhythmias. Device was interrogated an d was found to have right atrial lead is not functioning and possibly fractured as well as a poorly f unctioning RV lead, is currently set to VVI at 40 and all the detections and therapies are currently off. Patient's device also recently reached the relative replacement interval in May of this year. Currently, the patient is alert and oriented himself and knows that he is in the hospital, otherwise is disoriented. He denies any heart racing, palpitations, chest pain, stroke or stroke-like symptoms , but is a very poor historian and is extremely limited with his current cognitive limitations. Urin e drug screen was positive for cocaine 09/2017. REVIEW OF SYSTEMS: Twelve-point review of systems was attempted, but was very difficult to obtain gi lawson his altered mental status. PAST MEDICAL HISTORY: 1. Inclusion of a dual chamber ICD. 2. History of nonsustained ventricular arrhythmias during hospitalization. 3. Hypertension. 4. Hyperlipidemia. 5. Diabetes. 6. Stroke in 2006. 7. End-stage renal disease, on hemodialysis. 8. Triple-vessel coronary artery disease, though not a candidate for CABG. 9. Obstructive sleep apnea. 10. History of cocaine use. 11. AV fistula. HOME MEDICATIONS: Include allopurinol 100 mg daily, aspirin 81 mg daily, atorvastatin 20 mg at bedti il, carvedilol 6.25 mg b.i.d., Sensipar 30 mg daily, Cardura 8 mg daily, folic acid daily, gabapentin 100 mg b.i.d., insulin as directed, isosorbide mononitrate 60 mg daily, levothyroxine daily, Pamelor 25 mg q.p.m., ranitidine 150 mg b.i.d. and Ranexa 1000 mg b.i.d. ALLERGIES: None. SOCIAL HISTORY: Resides in a [facility]. Negative for tobacco or alcohol use. History of drug sc reen positive for cocaine use, although currently anuric and the urine could not be tested. FAMILY HISTORY: Positive for coronary artery disease, negative for others to the best of record reca ll. Patient is unable to contribute to family medical history or social history at this time. PHYSICAL EXAMINATION: VITAL SIGNS: Most recent vital signs, temperature 97.6 degrees Fahrenheit, pulse 64, blood pressure is 110/40, respirations are 14 and oxygen is 99% on BiPAP. HEENT: Normocephalic. Pupils are equal, round, reactive and accommodate to light. NECK: Supple without jugular venous distention. CHEST: Clear to auscultation bilaterally. Respirations are even and unlabored, on BiPAP. NEUROLOGIC: He is alert. He is oriented to name and the fact that he is in the hospital, but is vianey ble to report which hospital, the date, the month or the situation or the year. HEART: Heart rate is regularly regular with a crisp S1, S2. Device is seated at the left orig in or drainage. ABDOMEN: Obese, soft, nontender without palpable masses. EXTREMITIES: Warm and dry to touch with trace edema, bilateral lower extremities. NEUROLOGIC: Nonfocal and grossly intact except for his disorientation. DATABASE: EKGs reveal sinus rhythm with a right bundle-branch block. ICD interrogation reveals possible right atrial right ventricular lead malfunctions with possible fra ctures, device is at elective replacement interval and was reprogrammed to VVI at 40 with all therapi es turned off. LABORATORY DATA: Hemoglobin 10, hematocrit 28.8, platelet count is 89. Sodium 138, potassium 4.3, B UN 30, creatinine 5.6. IMPRESSION: 1. Syncope of unclear etiology. 2. Implantable cardioverter-defibrillator malfunction of atrial fibrillation and ventricular lead as well as battery depletion. 3. Chronic systolic heart failure. 4. End-stage renal disease with hemodialysis. 5. Metabolic encephalopathy. PLAN: Plan to let him medically recover and see if he can regain some of his mental orientation. At this time, the patient is unable to consent to ICD revision, although up for aggressive therapy and ICD generator change and lead revision would be the plan, unless a more conservative approaches are d esired. Thank you for allowing us to participate in the care of this patient.
--- NOTE | 2018-07-05 15:52 | PDOC.CTH ---
<Kylie Isabel - Last Filed: 07/05/18 15:50> Cardiology Progress Note - Subjective EP progress note: Patient seen and evaluated. No new cardiac concerns or complaints. pleasantly conversing and agreeable but much of speech is unintelligible and he is unable to answer most ROS questions. - ROS not able to obtain ROS - Objective Vital Signs Temp Pulse Resp BP BP Pulse Ox 07/05/18 08:00 97.8 F 75 16 135/63 96 07/05/18 07:38 97.8 F 75 16 95 07/05/18 04:32 97.3 F L 75 14 119/58 L 94 L Weight 268 lb 8 oz 07/04/18 07/05/18 07/06/18 06:59 06:59 06:59 Intake Total 900 700 240 Output Total 2000 Balance -1100 700 240 - Physical Examination General/Neuro: NAD Neck: no JVD present Lungs: CTA, unlabored respirations Heart: RRR Abdomen: no HSM, NT/ND, soft Extremities: + edema B (NSR) - Telemetry Telemetry Rhythm: NSR - Labs Result Diagrams: 07/05/18 05:01 07/05/18 05:01 Troponin/CKMB CK-MB (CK-2) 1.4 ng/mL (0-6.6) 07/03/18 06:25 Troponin I 0.038 ng/mL (< 0.028) H 07/03/18 12:38 - Assessment/Plan 1. Malfunctioning A/V leads on ICD. Generator at [employer]. Current set to VVI 40. All other therapies off. If aggressive treatment is pursued, patient would need lead revision and generator change. If extraction is pursued, this would need to be done in [place] However, patient remains unable to consent at this time. He converses pleasantly but is now able to answer orientation questions correctly. We again discussed treatment options with him but he is not able to voice understanding of this situation or what he wishes to be done. 2. Syncope, unknown etiology- thought to be hypotensive post HD vs Ventricular arrhythmia not captured by malfunctioning ICD 3. Metabolic encephalopathy- resolving 4. Suspected active cocaine use, anuric and unable to do UTS. Minimal change since last evaluated. There are severe reservation about repairing/replacing his ICD at this time as he is non complaint, has poor followup, and is possibly still using cocaine. Will continue to follow. <Sven Emerson - Last Filed: 07/05/18 17:59> Cardiology Progress Note - Objective Vital Signs Temp Pulse Resp BP Pulse Ox 07/05/18 08:00 97.8 F 75 16 135/63 96 07/05/18 07:38 97.8 F 75 16 95 Weight 268 lb 8 oz 07/04/18 07/05/18 07/06/18 06:59 06:59 06:59 Intake Total 900 700 240 Output Total 2000 Balance -1100 700 240 - Labs Result Diagrams: 07/05/18 05:01 07/05/18 05:01 Troponin/CKMB CK-MB (CK-2) 1.4 ng/mL (0-6.6) 07/03/18 06:25 Troponin I 0.038 ng/mL (< 0.028) H 07/03/18 12:38 Attending Addendum - Attending Addendum Date/Time: 07/05/18 9561 I personally evaluated the patient and discussed the management with ms Isabel. I agree with the History, Examination, Assessment and Plan documented above with any addition or exceptions noted below.
[2018-07-05] MEDS: cefTRIAXone\\ROCEPHIN 1 GM in Sodium Chloride 0.9% 100 ML IVPB SCH (17:20)
--- NOTE | 2018-07-05 18:50 | PDOC.PN ---
- Subjective Encounter Start Date: 07/05/18 Encounter Start Time: 18:49 Subjective: nsg notes rev, carlene ovn, pt no new c/o, feels that his own mentation is -: grossly at baseline - tangential conversation intermittently answers -: questions directly but is consistent when he does do this - Objective Resuscitation Status: Resuscitation Status FULL:Full Resuscitation Vital Signs & Weight: Vital Signs (12 hours) Temp Pulse Resp BP Pulse Ox 07/05/18 15:50 98.3 F 82 16 141/62 H 99 07/05/18 08:00 97.8 F 75 16 135/63 96 07/05/18 07:38 97.8 F 75 16 95 Weight Weight 268 lb 8 oz I&O: 07/04/18 07/05/18 07/06/18 06:59 06:59 06:59 Intake Total 900 700 720 Output Total 1999 4300 Balance -1100 700 -3580 Result Diagrams: 07/05/18 05:01 07/05/18 05:01 Additional Labs: Accuchecks 07/05/18 07/05/18 07/04/18 10:35 05:23 20:53 POC Glucose 139 H 102 161 H Phys Exam - Physical Examination Constitutional: NAD seated on edge of hospital bed HEENT: moist MMs Respiratory: no wheezing, no rales, no rhonchi, clear to auscultation bilateral limited ant exam Cardiovascular: RRR, no significant murmur, no rub Gastrointestinal: soft, no distention, positive bowel sounds Dx/Plan - Plan * metabolic encephalopathy * appears grossly improved per pt's report and comparison with previous documentation * pt states that his slurred speech is grossly at his baseline; denies any difficulty with word finding/ mental processing * somewhat tangential with answering questions but does provide consistent yes / no answers to questions * likely multifactorial syncope, hypotension. resolved suspect 2/2 volume depletion ESRD on HD as per nephrology malfunctioning AV leads apprec EP c/s diet: as diane activity: PT/ OT as diane dvt ppx Review of Systems - Medications/Allergies Allergies/Adverse Reactions: Allergies Allergy/AdvReac Type Severity Reaction Status Date / Time No Known Drug Allergies Allergy Verified 07/03/18 15:40 Medications: Current Medications Acetaminophen (Tylenol) 650 mg PO Q6H PRN PRN Reason: Headache/Fever or Pain Acetaminophen (Tylenol) 650 mg KS Q6H PRN PRN Reason: Headache/Fever or Pain Albuterol/Ipratropium (Duoneb) 3 ml NEB [id number] [facility] Last Admin: 07/05/18 14:20 Dose: Not Given Albuterol/Ipratropium (Duoneb) 3 ml NEB [id number] PRN PRN Reason: SOB &/or Wheezing Aspirin (Aspirin) 325 mg PO DAILY [facility] Last Admin: 07/05/18 08:46 Dose: 325 mg Dextrose/Water (Dextrose 50%) 25 gm SLOW IVP PRN PRN PRN Reason: Hypoglycemia Docusate Sodium (Colace) 100 mg PO BID [facility] Last Admin: 07/05/18 08:46 Dose: 100 mg Famotidine (Pepcid) 20 mg SLOW IVP 2100 [facility] Last Admin: 07/04/18 21:03 Dose: 20 mg Glucagon (Glucagon) 1 mg IM PRN PRN PRN Reason: Hypoglycemia Dextrose/Water (D5w) 1,000 mls @ 0 mls/hr IV .Q0M PRN PRN Reason: Hypoglycemia Ceftriaxone Sodium 1 gm/ (Sodium Chloride) 100 mls @ 200 mls/hr IVPB Q24HR [facility] Last Admin: 07/05/18 17:20 Dose: 100 mls Insulin Human Regular (Humulin R) 0 units SC .MILD SLIDING SCALE PRN PRN Reason: Mild Correctional Scale Insulin Human Regular (Humulin R) 0 units SC .BEDTIME SLIDING SC PRN PRN Reason: Bedtime Correctional Scale Magnesium Oxide (Magnesium Oxide) 250 mg PO DAILY [facility] Last Admin: 07/05/18 08:46 Dose: 250 mg Mineral Oil/White Petrolatum (Lacri-Lube Ointment) 0 gm EA EYE PRN PRN PRN Reason: Dry Eyes Senna (Senokot) 2 tab PO HSPRN PRN PRN Reason: Constipation Sodium Chloride (Flush - Normal Saline) 10 ml IVF PRN PRN PRN Reason: Saline Flush Last Admin: 07/05/18 08:48 Dose: 10 ml
--- NOTE | 2018-07-05 20:25 | PRG ---
DATE OF SERVICE: 07/05/2018 Noted with the following vital signs. OBJECTIVE: VITAL SIGNS: Afebrile with temperature 98.3, pulse 82, respiratory rate of 16, O2 sat 99%, blood pre ssure 135/63. HEENT: Unremarkable. CARDIOVASCULAR: First and second sounds were heard. RESPIRATORY: Clear to auscultation. DIGESTIVE: Revealed a benign abdomen. EXTREMITIES: No peripheral edema. SKIN: No new gross rash. LYMPHATICS: No peripheral lymphadenopathy. IMPRESSION: 1. End-stage renal disease, hemodialysis dependent. 2. Mental status change, much improved. PLAN: 1. The patient to continue with hemodialysis Tuesday, Tuesday, and Tuesday. 2. From the renal standpoint, the patient is good for discharge.
[2018-07-05] MEDS: Famotidine/PF 20 mg/2ml Vial SLOW IVP SCH (21:07)
--- NOTE | 2018-07-06 08:47 | CON ---
DATE OF CONSULTATION: 07/03/2018 REFERRING PHYSICIAN: Dr. Antonio Sky. REASON FOR CONSULTATION: Syncope. HISTORY OF PRESENT ILLNESS: Mr. Guy is a 57-year-old, -[place] Citizen male who has been consul [facility] for evaluation of syncopal event. History is somewhat confusing, recollection of the event from the history provided in the H&P. The patient reports that he had gone to the dialysis for his routin e treatment, had his right leg, the staff prevented the fall and at that time noticed that he wa s weak on his right lower extremity and EMS brought him to the [facility]. Per H&P no te, he was provided at that point, he was transferred to [facility]. Here in [facility], he has been complaining of lower extremity. He does report of having a history of stroke from which he had recovered. He currently denies any headache, chest pain, palpitation, visio n changes, or ptosis. He does complain of having slurred speech. PAST MEDICAL HISTORY: Significant for hypertension, diabetes, hyperlipidemia, end-stage renal diseas e on dialysis, history of stroke, coronary artery disease, chronic systolic heart failure secondary t o ischemic cardiomyopathy. PAST SURGICAL HISTORY: Significant for AICD placement, dialysis access catheter placement. CURRENT MEDICATIONS: Please review MAR. ALLERGIES: No known drug allergies. SOCIAL HISTORY: He denies smoking, alcohol use, or illicit drug use. FAMILY HISTORY: Significant for hypertension and diabetes. REVIEW OF SYSTEMS: As mentioned above in the HPI, otherwise negative. PHYSICAL EXAMINATION: VITAL SIGNS: Blood pressure of 110/40, pulse of 69, temperature of 97.0, respirations of 15, O2 sats of 95% on BiPAP. GENERAL: Obese -[place] Citizen male in no apparent distress. RESPIRATORY: Clear to auscultation bilaterally. CARDIOVASCULAR: Regular rate and rhythm. NEUROLOGIC: Mental status: The patient is awake, alert, oriented x3. Speech and language: Dysarth lindsey speech noted. Cranial nerves: Pupils are 3 mm and reactive. Visual jones are full to threat. External muscles are intact. Face is symmetric. Tongue and uvula are midline. Motor exam showed n ormal tone and bulk with 5/5 strength in left lower extremity, strength in the right lower extremity is 3-4/5 with an antalgic weakness due to pain in his hip, sensation in both upper and lower extremit ies. Reflexes 1+ reflexes in both upper extremities and absent in both lower extremities. Babinski: Plantar responses, coordination could not be tested. LABORATORY DATA: Reviewed, which included CBC, CMP, which is significant for hemoglobin 10.0, platel et count 89,000, alkaline phosphatase of 280, otherwise unremarkable. IMAGING STUDIES: CT head without contrast was reviewed, which showed no acute intracranial abnormali ties. Diffuse slowing without any epileptiform discharges . IMPRESSION: . Right lower extremity weakness . Mr. Guy is a pleasant 57-year-old -[place] Citizen male with multiple medical problems who prese nted with what appears to be a syncopal event. He with his prior stroke. He has had CT scan o f the head which did not show any acute intracranial abnormality due to unable to obtain. MRI scan of his brain consulting PT, OT, speech therapy. Continue aspirin and for secondary stroke prevention, place patient on secondary stroke and controlling them to minimize the risk of recurrent stroke.
--- NOTE | 2018-07-06 09:22 | EEG ---
Referring Physician: DR. DALIA CARCAMO EEG # [id number] TEST TYPE: ROUTINE PORTABLE INPATIENT DATE OF EEG BEING DONE: 07/03/18 REASON FOR EEG: NEAR SYNCOPAL EVENT, ALTERED MENTAL STATUS EEG DESCRIPTION: This is a 21 channel digital EEG recording. Electrodes are placed using the international ten-twenty electrode placement system. The background rhythm is predominately 4-5 hertz, low amplitude Theta rhythm. There are periods of 2-3 hertz, low to medium amplitude, intermittent, diffuse Delta rhythm. There is no change in the background activity with stimulation. HYPERVENTILATION: Is not done as patient was on Bi-PAP machine and undergoing dialysis during the EEG. PHOTIC STIMULATION: Showed no effect. There are no epileptiform discharges, sharp transients or asymmetry noted. EKG LEAD: Shows 72 beats per minute, regular rhythm. IMPRESSION: THIS IS AN ABNORMAL EEG. IT SHOWS MODERATE, NONSPECIFIC CEREBRAL DYSFUNCTION. HOWEVER, THERE ARE NO EPILEPTIFORM DISCHARGES, SHARP TRANSIENTS OR ASYMMETRY NOTED. THIS CAN BE PRESENT IN PATIENTS WITH TOXIC-METABOLIC ENCEPHALOPATHY. PLEASE CORRELATE THESE FINDINGS CLINICALLY. Vegetable Farm Worker: JEANNETTE Quality Control Technician: EEG.[email or web address] RODRIGUEZ
[2018-07-06] MEDS: Aspirin 325 MG TAB PO SCH (09:32)
[2018-07-06] MEDS: Docusate 100 MG CAP PO SCH ×2 (09:32→20:51)
[2018-07-06] MEDS: Magnesium Oxide 250 MG TAB PO SCH (09:32)
--- NOTE | 2018-07-06 10:04 | PRG ---
DATE OF SERVICE: 07/06/2018 He is sitting up in bed, claims he has no issues and he wants to go home. PHYSICAL EXAMINATION: VITAL SIGNS: Temperature 96.2, pulse 87, respirations 14, O2 sat 99%, blood pressure 136/65. HEENT: Remarkable for class 4 Mallampati airway. NECK: No adenopathy or JVD. LUNGS: Clear without wheeze or rhonchi. CARDIAC: S1 and S2 regular. ABDOMEN: Soft. EXTREMITIES: No edema. LABORATORY DATA: No new labs were done today. ASSESSMENT: This patient appears to be back to his baseline. His pulmonary status is stable. At so me point he will need a sleep study. He can follow up with Dr. Huerta in the office for that.
[2018-07-06] MEDS ORDERED: cefTRIAXone\\ROCEPHIN 1 GM VIAL ONE (12:51)
--- NOTE | 2018-07-06 13:45 | PDOC.PN ---
- Subjective Encounter Start Date: 07/06/18 Encounter Start Time: 13:42 Subjective: nsg notes rev, carlene ovn, pt no new c/o, wants to know about -: discharge planning -: had a nosebleed ovn - Objective Resuscitation Status: Resuscitation Status FULL:Full Resuscitation Vital Signs & Weight: Vital Signs (12 hours) Temp Pulse Resp BP BP BP Pulse Ox 07/06/18 12:00 77 16 146/70 H 07/06/18 11:01 78 16 97 07/06/18 07:10 96.2 F L 78 16 136/65 99 07/06/18 06:54 78 16 97 07/06/18 03:34 98.9 F 85 18 142/58 H 99 07/06/18 03:23 77 18 97 Weight Weight 268 lb 8 oz I&O: 07/05/18 07/06/18 07/07/18 06:59 06:59 06:59 Intake Total 700 960 Output Total 4300 Balance 700 -3340 Result Diagrams: 07/05/18 05:01 07/05/18 05:01 Additional Labs: Accuchecks 07/06/18 07/06/18 07/05/18 05:35 01:15 20:59 POC Glucose 137 H 102 117 H 07/05/18 17:22 POC Glucose 121 H Phys Exam - Physical Examination Constitutional: NAD seated on edge of hospital bed HEENT: moist MMs Respiratory: no wheezing, no rales, no rhonchi, clear to auscultation bilateral diminished throughout but no conversational dyspnea Cardiovascular: RRR, no rub soft heart tones Gastrointestinal: soft, non-tender, positive bowel sounds Musculoskeletal: pulses present 2+ b/l LE edema Neurological: moves all 4 limbs Dx/Plan - Plan cont current plan of care * metabolic encephalopathy, largely resolved * appears grossly improved per pt's report and comparison with previous documentation * pt states that his slurred speech is grossly at his baseline; denies any difficulty with word finding/ mental processing * somewhat tangential with answering questions but does provide consistent yes / no answers to questions. suspect this may be the patient's baseline - he certainly endorses this as his baseline nose bleed resolved sponatenously hemodynamically stable will follow H/H and VS syncope, hypotension. resolved suspect 2/2 volume depletion ESRD on HD as per nephrology malfunctioning AV leads apprec EP c/s regarding replacement options and timing diet: as diane activity: PT/ OT as diane dvt ppx Review of Systems - Medications/Allergies Allergies/Adverse Reactions: Allergies Allergy/AdvReac Type Severity Reaction Status Date / Time No Known Drug Allergies Allergy Verified 07/03/18 15:40 Medications: Current Medications Acetaminophen (Tylenol) 650 mg PO Q6H PRN PRN Reason: Headache/Fever or Pain Acetaminophen (Tylenol) 650 mg MN Q6H PRN PRN Reason: Headache/Fever or Pain Albuterol/Ipratropium (Duoneb) 3 ml NEB [id number] [facility] Last Admin: 07/06/18 11:01 Dose: 3 ml Albuterol/Ipratropium (Duoneb) 3 ml NEB [id number] PRN PRN Reason: SOB &/or Wheezing Aspirin (Aspirin) 325 mg PO DAILY [facility] Last Admin: 07/06/18 09:32 Dose: 325 mg Dextrose/Water (Dextrose 50%) 25 gm SLOW IVP PRN PRN PRN Reason: Hypoglycemia Docusate Sodium (Colace) 100 mg PO BID [facility] Last Admin: 07/06/18 09:32 Dose: 100 mg Famotidine (Pepcid) 20 mg PO 2100 [facility] Glucagon (Glucagon) 1 mg IM PRN PRN PRN Reason: Hypoglycemia Dextrose/Water (D5w) 1,000 mls @ 0 mls/hr IV .Q0M PRN PRN Reason: Hypoglycemia Ceftriaxone Sodium 1 gm/ (Sodium Chloride) 100 mls @ 200 mls/hr IVPB Q24HR [facility] Last Admin: 07/05/18 17:20 Dose: 100 mls Insulin Human Regular (Humulin R) 0 units SC .MILD SLIDING SCALE PRN PRN Reason: Mild Correctional Scale Insulin Human Regular (Humulin R) 0 units SC .BEDTIME SLIDING SC PRN PRN Reason: Bedtime Correctional Scale Magnesium Oxide (Magnesium Oxide) 250 mg PO DAILY [facility] Last Admin: 07/06/18 09:32 Dose: 250 mg Mineral Oil/White Petrolatum (Lacri-Lube Ointment) 0 gm EA EYE PRN PRN PRN Reason: Dry Eyes Senna (Senokot) 2 tab PO HSPRN PRN PRN Reason: Constipation Sodium Chloride (Flush - Normal Saline) 10 ml IVF PRN PRN PRN Reason: Saline Flush Last Admin: 07/06/18 09:32 Dose: 10 ml
[2018-07-06] MEDS: cefTRIAXone\\ROCEPHIN 1 GM in Sodium Chloride 0.9% 100 ML IVPB SCH (13:53)
--- NOTE | 2018-07-06 16:51 | PDOC.CTH ---
Cardiology Progress Note - Subjective EP progress note: Patient seen and evaluated. No new cardiac concerns or complaints today. Denies heart racing, palpitations, chest pain/pressure, dizziness, or passing out. No stroke like symptoms. - Objective Vital Signs Temp Pulse Resp BP BP Pulse Ox 07/06/18 15:17 97.6 F 83 16 141/86 H 100 07/06/18 14:51 72 16 96 07/06/18 12:00 77 16 146/70 H 07/06/18 11:01 78 16 97 07/06/18 07:10 96.2 F L 78 16 136/65 99 07/06/18 06:54 78 16 97 Weight 268 lb 8 oz 07/05/18 07/06/18 07/07/18 06:59 06:59 06:59 Intake Total 700 960 Output Total 4300 Balance 700 -3340 - Physical Examination General/Neuro: alert & oriented x3, NAD, other: (garbled speech) Neck: carotid US brisk, no JVD present Lungs: unlabored respirations Heart: PMI normal, RRR Abdomen: NT/ND - Telemetry Telemetry Rhythm: NSR - Labs Result Diagrams: 07/05/18 05:01 07/05/18 05:01 Troponin/CKMB CK-MB (CK-2) 1.4 ng/mL (0-6.6) 07/03/18 06:25 Troponin I 0.038 ng/mL (< 0.028) H 07/03/18 12:38 - Assessment/Plan 1. Malfunctioning A/V leads on ICD. Generator at [employer]. Current set to VVI 40. All other therapies off. 2. Syncope, unknown etiology- thought to be hypotensive post HD vs Ventricular arrhythmia not captured by malfunctioning ICD 3. Metabolic encephalopathy- resolving, at baseline mental status. Slurred speech persists but answers are consistent. 4. Suspected active cocaine use, anuric and unable to do UTS. There are severe reservation about repairing/replacing his ICD at this time as he is non complaint, has poor followup, and is possibly still using cocaine. That being said, patient would like to have the procedure performed. Arrangements have been made for lead revision and generator change tomorrow at 0800. Will keep NPO. Risks benefits and alternatives have been discussed and all questions answered. Will begin with a venogram to check SVC patency. If occluded will likely need completely new system implanted on opposite side.
[2018-07-06] MEDS ORDERED: Sodium Chloride 0.9% 10 ML ONE (17:31)
--- NOTE | 2018-07-06 18:04 | PRG ---
DATE OF SERVICE: 07/06/2018 SUBJECTIVE: The patient was seen and examined, seems to be doing much better, very eager to go home. Noted with the following vital signs. OBJECTIVE: VITAL SIGNS: Afebrile with temperature 97.6, pulse 83, respiratory rate of 16, O2 saturation 100% wi th a blood pressure of 141/86. HEENT: Unremarkable with moist oral mucosa. No conjunctival injection or icterus. NECK: Supple. CARDIOVASCULAR SYSTEM: First and second heart sounds were heard. RESPIRATORY SYSTEM: Clear to auscultation. DIGESTIVE SYSTEM: Revealed a benign abdomen with positive bowel sounds. EXTREMITIES: No peripheral edema. SKIN: No new gross rash. LYMPHATICS: No peripheral lymphadenopathy. IMPRESSION: 1. End-stage renal disease, hemodialysis dependent. 2. Mental status change, which has since improved. PLAN: 1. The patient to continue with hemodialysis per schedule of Tuesday, Tuesday and Tuesday. 2. Further management to be dependent on the clinical course including disposition planning. 3. Fro m the renal standpoint, the patient is good for discharge.
[2018-07-06] MEDS: Famotidine 20 MG TAB PO SCH (20:51)
[2018-07-07] MEDS: Aspirin 325 MG TAB PO SCH (08:34)
[2018-07-07] MEDS: Docusate 100 MG CAP PO SCH ×2 (08:34→22:26)
[2018-07-07] MEDS: Magnesium Oxide 250 MG TAB PO SCH (08:34)
[2018-07-07 09:49] LABS: Anion Gap 16 mmol/L (10-20); BUN (Urea Nitrogen) 44 mg/dL (8.4-25.7); Calc. Creatinine Clearance 18 mL/min (70-130); Carbon Dioxide 30 mmol/L (22-29); Chloride 97 mmol/L (98-107); Estimated GFR-MDRD 9; Glucose 112 mg/dL (70-105); Sodium 138 mmol/L (136-145)
[2018-07-07 09:57] LABS: Hemoglobin 9.4 g/dL (14.0-18.0); Mean Corpuscular HGB CONC 34.3 g/dL (32.0-36.0); Mean Corpuscular Hemoglobin 30.8 pg (27.0-31.0); Mean Corpuscular Volume 89.8 fL (78.0-98.0); Mean Platelet Volume 10.1 fL (7.4-10.4); Platelet Count 83 thou/uL (130-400); RBC Distribution Width 15.2 % (11.5-14.5); Red Blood Cell (RBC) Count 3.04 mill/uL (4.70-6.10); White Blood Cell (WBC) Count 5.8 thou/uL (4.8-10.8)
[2018-07-07 09:59] LABS: Band 4 % (5-11); Eosinophils 15 % (0-10); Lymphocytes 20 % (21-51); MDiff Complete? YES; Monocytes 9 % (0-10); Neutrophil 50 % (42-75); PLT Morphology Comment Appears Decreased; Polychromasia SLIGHT = 2-3 cells (100X) (0-2/hpf)
[2018-07-07] MEDS ORDERED: Iopamidol 370 76% 50 ML VIAL FS ONE (10:10)
[2018-07-07] MEDS ORDERED: CEFAZOLIN/Water 2 GM/20 ML SYRINGE ONE (11:01)
[2018-07-07] MEDS ORDERED: Lidocaine 1% PF 5 ML VIAL ONE (11:34)
[2018-07-07] MEDS ORDERED: PROPOFOL 200 MG/20 ML VIAL ONE (11:34)
[2018-07-07] MEDS ORDERED: Lidocaine 1% (PF) 30 ML VIAL ONE (13:27)
[2018-07-07] MEDS ORDERED: ISOVUE-370 76%-LOCM 1 ML ONE (14:47)
--- NOTE | 2018-07-07 15:49 | CT ---
CT THORAX WITH IV CONTRAST: 07/07/18 HISTORY: Replacement of cardiac pacemaking leads through region of stenosis with difficulty and suggestion of small amount of extravasation during the exam. This is for evaluation of mediastinal hematoma. Comparison not available. FINDINGS: There is a dual lead left subclavian AICD device noted in place with RA and RV leads. There is small amount of fluid seen adjacent to the power pack device of the AICD device likely related to recent re placement. Focus of subcutaneous gas is also present in this region which is just above the level of the left pectoralis muscle. There is a small amount of fluid seen within the anterior superior mediastinum. Contrast injection wa s performed from a femoral approach, but there is no extravasation of contrast seen on this exam. No measureable mediastinal hematoma is present. Vascular calcifications are seen in the coronary arteries and the thoracic aorta. The thoracic aorta is normal in caliber without evidence of an aortic dissection. The heart is mildly enlarged. There is scattered atelectasis within the lungs bilaterally. No pulmonary nodule or mass is appreciat ed and there is no pleural effusion or pneumothorax seen. There is a small amount of intraperitoneal free fluid. This was also present on prior exam on 7. Calcified granulomas present in the spleen. Multiple gallbladder calculi are partially imaged. There is mild generalized anasarca. Greatest amount of subcutaneous edema is seen laterally involving the upper abdomen. There is a vascular stent overlying the medial aspect of the proximal right upper extremity which could represents a venous stent and may be related to a stent within an arteriovenou s dialysis fistula; however, clinical correlation is suggested. IMPRESSION: 1. Dual lead left subclavian AICD device noted in place. There is a small amount of fluid seen w ithin the anterior superior mediastinum without discrete measureable hematoma present. No extravasati on of contrast is seen on this exam. 2. Fluid surrounding the power pack of the left subclavian AICD device related to recent replace ment and postsurgical change. 3. Cardiomegaly. 4. Prominent vascular calcifications in the coronary arteries. 5. Small amount of ascites as well as anasarca. 6. No pleural effusion or pneumothorax. 7. Cholelithiasis. 8. Above findings discussed with Dr. Emerson on 07/07/18 at 1511 hours. POS: [facility]
--- NOTE | 2018-07-07 16:09 | RAD ---
PORTABLE CHEST ONE VIEW: 07/07/18 at 3:33 p.m. HISTORY: Status post pacemaker generator change out. FINDINGS/IMPRESSION: Findings compared to exam of 07/04/18. AICD is seen. The heart size is mildly enlarged. There is pulmonary vascular congestion. No pneumotho races or large effusions are identified. POS: [facility]
--- NOTE | 2018-07-07 18:27 | PRG ---
DATE OF SERVICE: 07/07/2018 SUBJECTIVE: The patient was seen and examined, will undergo a pacemaker generator change today. OBJECTIVE: VITAL SIGNS: Afebrile with temperature 97.8, pulse 83, respiratory rate of 16, O2 sat 99% with blood pressure 163/74. HEENT: Unremarkable. CARDIOVASCULAR: First and second heart sounds were heard. RESPIRATORY: Clear to auscultation. DIGESTIVE: Revealed a benign abdomen with positive bowel sounds. EXTREMITIES: No peripheral edema. SKIN: No new gross rash. LYMPHATICS: No peripheral lymphadenopathy. IMPRESSION: 1. End-stage renal disease, hemodialysis dependent. 2. Mental status change, the patient started to improve. PLAN: 1. The patient to continue dialysis per schedule Tuesday, Tuesday, and Tuesday. 2. Further management to be dependent on the clinical course.
--- NOTE | 2018-07-07 21:05 | OP ---
DATE OF SERVICE: 07/07/2018 REASON FOR PROCEDURE: Mr. Guy underwent an attempted lead upgrade and ICD generator change. He had a hemodynamic instability and difficulty measuring his blood pressures in his arm, monitor ing central line and also for potential need for central venous access. DESCRIPTION OF PROCEDURE: The right femoral venous area was prepped, draped and anesthetized using s ubcutaneous lidocaine with ultrasound guidance from the right femoral artery and the right femoral ve nous accessed. A micropuncture sheaths were used and eventually a 5-Bolivian short sheath was introduc ed into the right femoral artery and triple-lumen central venous catheter was then inserted into the right femoral vein. The sheaths were sutured in place. Patient tolerated procedure well, no complic ations noted. PLAN: Continue hemodynamic monitoring and continuous intravenous access.
--- NOTE | 2018-07-07 21:28 | PDOC.PN ---
- Subjective Encounter Start Date: 07/07/18 Encounter Start Time: 22:07 Subjective: nsg notes rev, carlene ovn - Objective Resuscitation Status: Resuscitation Status FULL:Full Resuscitation Vital Signs & Weight: Vital Signs (12 hours) Pulse Ox 07/07/18 19:06 98 07/07/18 19:05 98 Weight Weight 255 lb 11.779 oz Most Recent Monitor Data Heart Rate from ECG 93 NIBP 103/70 NIBP BP-Mean 90 Respiration from ECG 13 SpO2 99 I&O: 07/06/18 07/07/18 07/08/18 06:59 06:59 06:59 Intake Total 960 780 Output Total 4300 0 Balance -3340 780 Result Diagrams: 07/08/18 14:27 07/08/18 01:40 Additional Labs: Accuchecks 07/07/18 05:41 POC Glucose 111 H Dx/Plan - Plan * metabolic encephalopathy, largely resolved nose bleed resolved sponatenously hemodynamically stable will follow H/H and VS syncope, hypotension. resolved suspect 2/2 volume depletion ESRD on HD as per nephrology malfunctioning AV leads in OR with EP diet: as diane activity: PT/ OT as diane dvt ppx
[2018-07-07] MEDS: cefTRIAXone\\ROCEPHIN 1 GM in Sodium Chloride 0.9% 100 ML IVPB SCH (22:23)
[2018-07-07 22:25] LABS: CO2 Tension 36.1 mmHg (35.0-45.0)
[2018-07-07 22:26] LABS: Actual Bicarbonate (HCO3a) 27.6 mEq/L (22-28); Base Excess (BEa) 4.2 mEq/L (-2.0 to +3.0); Hemoglobin (Hb) 8.6 g/dL (14.0-18.0); O2 Tension (PaO2) 73.6 mmHg (80.0-100.0)
[2018-07-07] MEDS: Famotidine 20 MG TAB PO SCH (22:26)
[2018-07-07 22:27] LABS: ALV-art Gradient 31.005 (0-20); Calcium, Ionized 1.1 mmol/L (1.12-1.30); Puncture Site L BRACHIAL
[2018-07-08] MEDS: cefTRIAXone\\ROCEPHIN 1 GM in Sodium Chloride 0.9% 100 ML IVPB SCH (01:15)
[2018-07-08] MEDS ORDERED: Lorazepam 2 MG/ML VIAL SLOW IVP PRN (02:41)
[2018-07-08 02:50] LABS: #Eosinphils 0.2 thou/uL (0.0-0.7); #Lymphocytes 0.5 thou/uL (1.20-3.40); #Monocytes 0.6 thou/uL (0.11-0.59); #Neutrophils 2.7 thou/uL (1.40-6.50); %Eosinophils 5.3 % (0.0-10.0); %Lymphocytes 12.8 % (21.0-51.0); %Monocytes 14.6 % (0.0-10.0); %Neutrophils 67.3 % (42.0-75.0); Hemoglobin 7.9 g/dL (14.0-18.0); Mean Corpuscular HGB CONC 34.8 g/dL (32.0-36.0); Mean Corpuscular Hemoglobin 31.3 pg (27.0-31.0); Mean Corpuscular Volume 90.1 fL (78.0-98.0); Mean Platelet Volume 9.5 fL (7.4-10.4); Platelet Count 98 thou/uL (130-400); Red Blood Cell (RBC) Count 2.53 mill/uL (4.70-6.10); White Blood Cell (WBC) Count 4.1 thou/uL (4.8-10.8)
[2018-07-08 02:54] LABS: INR-International Normal Ratio 1.4; Prothrombin Time 17.3 SEC (12.0-14.7)
[2018-07-08] MEDS: Famotidine 20 MG TAB PO SCH ×2 (03:05→22:26)
[2018-07-08] MEDS: Docusate 100 MG CAP PO SCH ×3 (03:05→22:25)
[2018-07-08 03:27] LABS: Anion Gap 18 mmol/L (10-20); BUN (Urea Nitrogen) 26 mg/dL (8.4-25.7); Calc. Creatinine Clearance 26 mL/min (70-130); Calcium 9.3 mg/dL (7.8-10.44); Carbon Dioxide 27 mmol/L (22-29); Chloride 98 mmol/L (98-107); Estimated GFR-MDRD 14; Glucose 83 mg/dL (70-105); Potassium 3.9 mmol/L (3.5-5.1); Sodium 139 mmol/L (136-145)
[2018-07-08] MEDS: Aspirin 325 MG TAB PO SCH (09:09)
[2018-07-08] MEDS: Magnesium Oxide 250 MG TAB PO SCH (09:09)
--- NOTE | 2018-07-08 11:52 | PRG ---
DATE OF SERVICE: 07/08/2018 SUBJECTIVE: The patient apparently underwent AICD replacement or repair yesterday. He was placed in the CCU afterwards at the request of Dr. Emerson. Apparently, there have been some mediastinal bleedin g during the process, although I do think it was very significant on the CT scan. The patient has be en lethargic overnight. He was not put on his BiPAP as he has been using several days ago when he wa s placed in the IMCU. OBJECTIVE: GENERAL: On exam this morning, he is snoring loudly, although his oxygen saturation looks good. He is difficult to awaken. HEENT: Pupils are reactive. Sclerae icteric. Oropharynx clear. NECK: No JVD. LUNGS: Clear anteriorly. CARDIOVASCULAR: S1 and S2 regular. ABDOMEN: Soft, obese, nontender. EXTREMITIES: No edema. LABORATORY DATA: A pH 7.50, pCO2 36, pO2 73. White blood cell count 4, hematocrit 22.8, platelet co unt 98. Sodium 139, potassium 3.9, chloride 90, CO2 27, BUN 26, creatinine 5.1, glucose 83. ASSESSMENT: 1. The patient likely has severe underlying obstructive sleep apnea. 2. Altered mental status which is probably somewhat due to his obstructive sleep apnea. 3. Multiple other medical problems including end-stage renal disease requiring hemodialysis, history of stroke, hyperlipidemia, hypertension, congestive heart failure. PLAN: 1. Trial of BiPAP. He needs to wear BiPAP at night for his LUZ MARINA. 2. Recheck labs tomorrow.
--- NOTE | 2018-07-08 12:11 | CT ---
CT CHEST WITH CONTRAST: Multiple axial tomograms are obtained through the chest with IV enhancement. INDICATION: Assess hematoma. Status post pacemaker placement. COMPARISON: Comparison is made to CT from yesterday of 07/07/18. FINDINGS: There is subcutaneous haziness and density surrounding the implanted power pack in the left anterior chest which suggests surrounding hematoma. Increased subcutaneous haziness extends into the left axi lla and left breast which may represent diffusion of hematoma. Similar findings were present yesterd ay. Nonspecific axillary lymph nodes are again noted. In the mediastinum, there continues to be a tiny fluid dense collection in the anterior mediastinum a djacent to the brachiocephalic vein as it enters the SVC. There is contrast extravasation at this site documented on today's study. A tiny pocket of contrast in the axial plane measures 1.5 cm AP dimension. This has a linear configuration in the coronal plan e along the posterior margin of the brachiocephalic vein with a 1.5 cm collection anteriorly. The lungs remain clear. Images through the abdomen again show cholelithiasis and ascites as describe d previously. IMPRESSION: 1. There is contrast extravasation in the anterior mediastinum along the brachiocephalic vein at its junction with the superior vena cava documented today. 2. Hematoma around the power pack in the anterior left chest again noted. 3. Lungs remain clear. Other findings are stable from yesterday. The findings were discussed with Dr. Razo at the time of dictation. CODE CR POS: [facility]
--- NOTE | 2018-07-08 14:08 | PDOC.CTH ---
Cardiology Progress Note - Subjective He remains confused. On a BiPAP. - ROS not able to obtain ROS - Objective Vital Signs Temp Pulse Resp Pulse Ox 07/08/18 13:31 93 19 94 L 07/08/18 12:00 99.0 F 95 07/08/18 09:51 107 H 34 H 97 07/08/18 08:00 99.1 F 101 H 22 H 94 L 07/08/18 07:26 101 H 07/08/18 07:00 99.1 F 07/08/18 06:27 101 H 12 93 L 07/08/18 03:50 97 Weight 256 lb 2.834 oz 07/07/18 07/08/18 07/09/18 06:59 06:59 06:59 Intake Total 780 100 Output Total 0 1 Balance 780 99 - Physical Examination General/Neuro: other: (On BiPAP.) Neck: carotid US brisk Lungs: unlabored respirations Heart: RRR Abdomen: NT/ND Extremities: + edema B (trace) - Telemetry Telemetry Rhythm: NSR - Labs Result Diagrams: 07/08/18 01:40 07/08/18 01:40 Troponin/CKMB CK-MB (CK-2) 1.4 ng/mL (0-6.6) 07/03/18 06:25 Troponin I 0.038 ng/mL (< 0.028) H 07/03/18 12:38 - Assessment/Plan 1. Malfunctioning A/V leads on ICD s/p revision. 2. Syncope, unknown etiology 3. Metabolic encephalopathy 4. Suspected active cocaine use 5. Possible venous puncture at the brachiocepahlic SVC juncture. 6. ESRD. PLAN: - Will get CT surgery involved. Probably nothing to do but watch his Hgb and repeat CT. - Continue supportive care for encephalopathy. - Will repeat Hgb this afternoon and transfuse if needed.
[2018-07-08 14:40] LABS: Hemoglobin 7.6 g/dL (14.0-18.0); Platelet Count 94 thou/uL (130-400)
--- NOTE | 2018-07-08 21:08 | PRG ---
DATE OF SERVICE: 07/08/2018 SUBJECTIVE: The patient was seen and examined, on BiPAP, not responding very well. Noted with the f ollowing vital signs. OBJECTIVE: VITAL SIGNS: Blood pressure 130/57, heart rate of 89, O2 saturation of 93%. HEENT: Unremarkable. CARDIOVASCULAR SYSTEM: First and second heart sounds were heard. RESPIRATORY SYSTEM: Revealed a lot of transmitted sounds from the BiPAP. DIGESTIVE SYSTEM: Revealed a benign abdomen with positive bowel sounds. EXTREMITIES: No peripheral edema. LABORATORY INVESTIGATION: Showed a hemoglobin of 7.6 down from 9.4 yesterday. IMPRESSION: 1. Mental status change/encephalopathy, query cause. The patient's mental status seems to have dete riorated again especially status post AICD generator replacement. 2. Anemia, probably anemia of chronic kidney disease in addition to possible acute blood loss anemia . 3. brachiocephalic superior vena cava junction possibly related to recent cardiac interv ention. 4. End-stage renal disease, hemodialysis dependent. PLAN: 1. We will monitor the hemoglobin closely and transfuse accordingly. 2. We will continue renal replacement therapy and avoid heparin products. 3. Further management to be dependent on the clinical course. Condition of patient still remains guarded.
--- NOTE | 2018-07-08 22:01 | CON ---
DATE OF CONSULTATION: 07/08/2018 HISTORY OF PRESENT ILLNESS: I was called by Dr. Razo today to Evaluate Mr. Guy. He is status post pacemaker lead revision on 07/07/2018. Apparently, this was difficult revision. He had a post operative CT of his chest which showed some fluid accumulation around the innominate vein/superior ve na cava junction. CT was repeated this morning with contrast which shows a small amount of contrast extravasation in this area. The patient is chronically on hemodialysis. He presented with near syncope and mental status changes . He has a history of cocaine use. He is currently in the ICU on BiPAP. He is unresponsive to any stimulation by me. He does have thrash in the bed, shake his head around. He is in sinus rhythm wit h a blood pressure 142/66. I have been asked to see him for further evaluation and treatment managem ent recommendations. PAST MEDICAL HISTORY: 1. End-stage renal disease, on dialysis. 2. Coronary artery disease. 3. Chronic heart failure with ejection fraction of 15%. 4. Diabetes mellitus. 5. Hypertension. 6. Dyslipidemia. 7. History of previous cerebrovascular accident. PAST SURGICAL HISTORY: 1. AICD placement. 2. Dialysis access. 3. Revision of leads. ALLERGIES: None. HOME MEDICATIONS: In the chart. SOCIAL HISTORY: He lives at home. There is a reported cocaine use history. PHYSICAL EXAMINATION: GENERAL: This is a moderately obese gentleman who is unresponsive to any rational stimulation. He d oes thrash in the bed. VITAL SIGNS: As above. CHEST: Clear. On palpation of his chest wall, there is no palpable hematoma. He does have a pressu re dressing on his pacemaker site on the left. IMAGING: CT scan, I have looked at both of his postoperative CT scans. There is a small blush of co ntrast -- contrast was injected in his left arm and past right through the area of concern at the inn ominate vein superior vena caval junction. There is no large hematoma in this area. ASSESSMENT AND PLAN: I would repeat a CT scan tomorrow. He is not on any antiplatelet agents kimmy culp. He is not on any anticoagulants. I would follow this expectantly.
--- NOTE | 2018-07-08 22:18 | PDOC.PN ---
- Subjective Encounter Start Date: 07/08/18 Encounter Start Time: 16:00 -: non-verbal Subjective: bipap in place, not verbalizing to me, half opens eyes to painful stimuli -: nsg notes rev, carlene ovn - Objective Resuscitation Status: Resuscitation Status FULL:Full Resuscitation Vital Signs & Weight: Vital Signs (12 hours) Temp Pulse Resp Pulse Ox 07/08/18 20:00 98 F 07/08/18 18:48 99 96 07/08/18 18:47 96 07/08/18 16:00 98.1 F 07/08/18 15:23 98 07/08/18 13:31 93 19 94 L 07/08/18 12:00 99.0 F 95 Weight Weight 256 lb 2.834 oz Most Recent Monitor Data Heart Rate from ECG 89 NIBP 130/57 NIBP BP-Mean 80 Respiration from ECG 4 SpO2 93 I&O: 07/07/18 07/08/18 07/09/18 06:59 06:59 06:59 Intake Total 780 100 Output Total 0 1 Balance 780 99 Result Diagrams: 07/08/18 14:27 07/08/18 01:40 Additional Labs: Accuchecks 07/08/18 07/08/18 16:41 10:10 POC Glucose 111 H 103 Phys Exam - Physical Examination lying in hopsital bed HEENT: moist MMs bipap in place coarse bipap sounds throughout Cardiovascular: RRR, no significant murmur, no rub Gastrointestinal: soft, positive bowel sounds Dx/Plan - Plan * metabolic encephalopathy originally had metabolic encephalopathy on presentation felt to be multi- factorial likely related to a combination of multiple medical comorbidities (EF 20%, ESRD on HD) compounded by general medical non compliance and suspected active illicit drug use with cocaine. Patient was dialyzed and medically treated with subsequent improvement of mental status to baseline. Patient had malfunctioning AV leads - EP consulted. This was recognized to be a high risk but also emergently necessary procedure. Patient post-operatively has a component of recurrently metabolic encephalopathy. Of note, at baseline, patient has significantly slurred speech but can answer questions consistently. nose bleed resolved sponatenously hemodynamically stable syncope, hypotension. resolved suspect 2/2 volume depletion ESRD on HD as per nephrology malfunctioning AV leads see discussion above concern for possible SVC puncture diet: as diane activity: PT/ OT as diane dvt ppx d/w bedside nsg Review of Systems - Medications/Allergies Allergies/Adverse Reactions: Allergies Allergy/AdvReac Type Severity Reaction Status Date / Time No Known Drug Allergies Allergy Verified 07/03/18 15:40 Medications: Current Medications Acetaminophen (Tylenol) 650 mg PO Q6H PRN PRN Reason: Headache/Fever or Pain Acetaminophen (Tylenol) 650 mg VA Q6H PRN PRN Reason: Headache/Fever or Pain Albuterol/Ipratropium (Duoneb) 3 ml NEB [id number] FORMERLY [facility], [facility] Last Admin: 07/08/18 18:47 Dose: 3 ml Albuterol/Ipratropium (Duoneb) 3 ml NEB [id number] PRN PRN Reason: SOB &/or Wheezing Aspirin (Aspirin) 325 mg PO DAILY FOR[facility]LY [facility], [facility]1983 Last Admin: 07/08/18 09:09 Dose: Not Given Dextrose/Water (Dextrose 50%) 25 gm SLOW IVP PRN PRN PRN Reason: Hypoglycemia Docusate Sodium (Colace) 100 mg PO BID [facility]1983 Last Admin: 07/08/18 09:09 Dose: Not Given Famotidine (Pepcid) 20 mg PO 2100 [facility] Last Admin: 07/08/18 03:05 Dose: Not Given Glucagon (Glucagon) 1 mg IM PRN PRN PRN Reason: Hypoglycemia Dextrose/Water (D5w) 1,000 mls @ 0 mls/hr IV .Q0M PRN PRN Reason: Hypoglycemia Ceftriaxone Sodium 1 gm/ (Sodium Chloride) 100 mls @ 200 mls/hr IVPB Q24HR [facility] Last Admin: 07/08/18 01:15 Dose: 100 mls Insulin Human Regular (Humulin R) 0 units SC .MILD SLIDING SCALE PRN PRN Reason: Mild Correctional Scale Insulin Human Regular (Humulin R) 0 units SC .BEDTIME SLIDING SC PRN PRN Reason: Bedtime Correctional Scale Magnesium Oxide (Magnesium Oxide) 250 mg PO DAILY [facility] Last Admin: 07/08/18 09:09 Dose: Not Given Mineral Oil/White Petrolatum (Lacri-Lube Ointment) 0 gm EA EYE PRN PRN PRN Reason: Dry Eyes Senna (Senokot) 2 tab PO HSPRN PRN PRN Reason: Constipation Sodium Chloride (Flush - Normal Saline) 10 ml IVF PRN PRN PRN Reason: Saline Flush Last Admin: 07/06/18 09:32 Dose: 10 ml
[2018-07-09] MEDS: cefTRIAXone\\ROCEPHIN 1 GM in Sodium Chloride 0.9% 100 ML IVPB SCH (01:46)
[2018-07-09 06:56] LABS: Anion Gap 18 mmol/L (10-20); BUN (Urea Nitrogen) 39 mg/dL (8.4-25.7); Calc. Creatinine Clearance 18 mL/min (70-130); Calcium 8.9 mg/dL (7.8-10.44); Carbon Dioxide 27 mmol/L (22-29); Chloride 98 mmol/L (98-107); Estimated GFR-MDRD 9; Glucose 97 mg/dL (70-105); Sodium 138 mmol/L (136-145)
[2018-07-09 07:00] LABS: Hemoglobin 7.4 g/dL (14.0-18.0); Mean Corpuscular HGB CONC 34.1 g/dL (32.0-36.0); Mean Corpuscular Hemoglobin 30.8 pg (27.0-31.0); Mean Corpuscular Volume 90.5 fL (78.0-98.0); Mean Platelet Volume 10.7 fL (7.4-10.4); Platelet Count 69 thou/uL (130-400); RBC Distribution Width 14.9 % (11.5-14.5); Red Blood Cell (RBC) Count 2.41 mill/uL (4.70-6.10); White Blood Cell (WBC) Count 5.6 thou/uL (4.8-10.8)
[2018-07-09] MEDS: Aspirin 325 MG TAB PO SCH (07:22)
[2018-07-09] MEDS: Docusate 100 MG CAP PO SCH ×2 (07:23→20:23)
[2018-07-09] MEDS: Magnesium Oxide 250 MG TAB PO SCH (07:23)
--- NOTE | 2018-07-09 08:25 | PRG ---
DATE OF SERVICE: 07/09/2018 SUBJECTIVE: Mr. Guy is comfortable, on BiPAP. He will wake up. Does not follow commands with any type of vigor. OBJECTIVE: VITAL SIGNS: On exam, temperature is 98.1, pulse 87, blood pressure 141/70, 24-hour intake not quant itated. HEENT EXAM: Unremarkable. NECK: No JVD. LUNGS: Clear anteriorly. CARDIOVASCULAR: S1 and S2, regular. ABDOMEN: Soft. EXTREMITIES: Edematous. LABORATORY DATA: White blood cell count 5.6, hemoglobin 7.4, hematocrit 21.8, platelet count 69. So dium 130, potassium 5, chloride 98, CO2 of 27, BUN 39, creatinine 7.4, glucose 97. ASSESSMENT: 1. Encephalopathy. 2. Underlying obstructive sleep apnea. 3. End-stage renal disease, requiring hemodialysis. 4. Mediastinal bleed, likely from venipuncture of the superior vena cava during automatic implantabl e cardioverter defibrillator replacement. 5. Chronic renal failure. PLAN: The patient probably will need dialysis with replacement of platelets and blood soon. He is c ontinuing his CPAP/BiPAP as needed. Prognosis is guarded.
--- NOTE | 2018-07-09 11:53 | CT ---
CT CHEST WITH CONTRAST: INDICATION: Followup venous extravasation post ICD placement. FINDINGS: The patient is unable to hold arms above head. This produces significant artifact in the mediastinum , limiting detail. There continues to be a small focus of extravasation anterior mediastinum similar to yesterday's exam . There is no increase in size of this focus of extravasation which appears to represent a contained leak from the brachiocephalic vein at its junction with the SVC. Lung jones show some ground-glass opacity and atelectasis in the lung bases. No effusion. IMPRESSION: 1. There continues to be mild focus of extravasation anterior mediastinum similar to yesterday's exa m. No evidence of increasing mediastinal hematoma. 2. The hematoma surrounding the power pack in the left chest and into the left axilla may be slightl y improved today. There is free fluid surrounding the spleen noted in the upper left abdomen. POS: [facility]
--- NOTE | 2018-07-09 14:48 | PRG ---
DATE OF SERVICE: 07/09/2018 SUBJECTIVE: The patient seen and examined, still on BiPAP, but patient seems to be responding. OBJECTIVE: VITAL SIGNS: O2 sat 100%, blood pressure 130/82, respiratory rate of 18. HEENT: Unremarkable. BiPAP mask in place. CARDIOVASCULAR: First and second heart sounds were heard. RESPIRATORY: Revealed transmitted sounds. DIGESTIVE: Revealed a benign abdomen. EXTREMITIES: No peripheral edema. NEUROLOGIC: Revealed that patient that is responsive and alert. IMPRESSION: 1. End-stage renal disease, hemodialysis dependent. 2. Anemia, partly anemia of chronic kidney disease due to acute blood loss. 3. Mental status change likely exacerbated by recent use of anesthesia. 4. Thrombocytopenia. PLAN: 1. Hemodialysis, no emergent indication at this point. Therefore, we will keep this patient on his regular schedule of Tuesday, Tuesday and Tuesday. 2. Given the history of possible bleed. We will consider holding aspirin or deescalating the dose t o about 81 mg, especially in this patient with thrombocytopenia. 3. We would avoid heparin products. 4. Consider physical therapy, get this patient out of out of bed to neuro chair and I do believe nati lai would do well and if okay with Pulmonology, limit the BiPAP use to during the night. 5. Further management to be dependent on the clinical course.
--- NOTE | 2018-07-09 19:41 | PDOC.CTH ---
Cardiology Progress Note - Subjective No new issues. Remains somnolent but easily arousable. - Objective Vital Signs Temp Pulse Pulse Pulse Resp BP BP 07/09/18 18:39 07/09/18 18:36 86 14 07/09/18 16:00 98.8 F 07/09/18 13:45 85 07/09/18 13:44 85 11 L 07/09/18 12:28 86 87 140/75 151/77 H 07/09/18 11:55 98.6 F 07/09/18 09:48 85 07/09/18 09:47 86 18 07/09/18 08:00 98.4 F 85 16 Pulse Ox Pulse Ox Pulse Ox 07/09/18 18:39 100 07/09/18 18:36 100 07/09/18 16:00 07/09/18 13:45 07/09/18 13:44 100 07/09/18 12:28 100 100 07/09/18 11:55 07/09/18 09:48 07/09/18 09:47 100 07/09/18 08:00 100 Weight 251 lb 12.286 oz 07/08/18 07/09/18 07/10/18 06:59 06:59 06:59 Intake Total 100 100 20 Output Total 1 50 Balance 99 100 -30 - Physical Examination General/Neuro: NAD Neck: no JVD present Lungs: unlabored respirations Heart: RRR Abdomen: NT/ND Extremities: other: (no edema.) - Telemetry Telemetry Rhythm: NSR - Labs Result Diagrams: 07/09/18 06:33 07/09/18 06:33 Troponin/CKMB CK-MB (CK-2) 1.4 ng/mL (0-6.6) 07/03/18 06:25 Troponin I 0.038 ng/mL (< 0.028) H 07/03/18 12:38 - Assessment/Plan 1. Malfunctioning A/V leads on ICD s/p revision. 2. Syncope, unknown etiology 3. Metabolic encephalopathy 4. Suspected active cocaine use 5. Possible venous puncture at the brachiocepahlic SVC juncture. 6. ESRD. PLAN: - Still mild extravasation of contrast seen but hematoma not getting bigger, makes me think this is just the contrast from yesterday that we are seeing. - Hgb dropped only mildly. - Continue supportive care for encephalopathy. - Continue to trend Hgb and transfuse if needed.
--- NOTE | 2018-07-09 20:22 | PDOC.PN ---
- Subjective Encounter Start Date: 07/09/18 Encounter Start Time: 18:00 Subjective: f/u s/p AICD revision with extravasation of contrast into mediastinum -: with hematoma. CT chest showing slight decrease in size. Remains on -: low-flow O2 via NC. - Objective Resuscitation Status: Resuscitation Status FULL:Full Resuscitation MAR Reviewed: Yes Vital Signs & Weight: Vital Signs (12 hours) Temp Pulse Pulse Pulse Resp BP BP 07/09/18 19:58 98.9 F 88 14 07/09/18 18:39 07/09/18 18:36 86 14 07/09/18 16:00 98.8 F 07/09/18 13:45 85 07/09/18 13:44 85 11 L 07/09/18 12:28 86 87 140/75 151/77 H 07/09/18 11:55 98.6 F 07/09/18 09:48 85 07/09/18 09:47 86 18 Pulse Ox Pulse Ox Pulse Ox 07/09/18 19:58 3 L 07/09/18 18:39 100 07/09/18 18:36 100 07/09/18 16:00 07/09/18 13:45 07/09/18 13:44 100 07/09/18 12:28 100 100 07/09/18 11:55 07/09/18 09:48 07/09/18 09:47 100 Weight Weight 251 lb 12.286 oz Most Recent Monitor Data Heart Rate from ECG 88 NIBP 135/65 NIBP BP-Mean 77 Respiration from ECG 10 SpO2 100 I&O: 07/08/18 07/09/18 07/10/18 06:59 06:59 06:59 Intake Total 100 100 20 Output Total 1 50 Balance 99 100 -30 Result Diagrams: 07/09/18 06:33 07/09/18 06:33 Additional Labs: Accuchecks 07/09/18 07/09/18 07/08/18 16:31 06:21 23:00 POC Glucose 98 98 93 Microbiology 07/03/18 09:21 Venous blood - Left Hand Blood Culture - Final NO GROWTH IN 5 DAYS 07/03/18 09:06 Venous blood - Right Hand Blood Culture - Final NO GROWTH IN 5 DAYS Laboratory Tests 07/04/18 07/05/18 07/07/18 03:47 05:01 09:08 Hgb 9.2 L 9.4 L Plt Count 90 L 83 L 83 L 07/08/18 07/08/18 01:40 14:27 Hgb 7.9 L 7.6 L Plt Count 98 L 94 L Radiology Reviewed by me: Yes (CT chest - persistent hematoma mediastinum with decrease in size) EKG Reviewed by me: Yes (Tele - SR) Phys Exam - Physical Examination Constitutional: NAD HEENT: PERRLA, sclera anicteric, oral pharynx no lesions Neck: no nodes, no JVD, supple, full ROM Respiratory: no wheezing, no rales, no rhonchi, clear to auscultation bilateral S1, S2 Cardiovascular: RRR, no significant murmur, no rub, gallop Gastrointestinal: soft, non-tender, no distention, positive bowel sounds Musculoskeletal: pulses present, edema present Neurological: normal sensation, moves all 4 limbs Skin: no rash, normal turgor, cap refill <2 seconds Dx/Plan (1) Ischemic cardiomyopathy Code(s): I25.5 - ISCHEMIC CARDIOMYOPATHY Status: Chronic Comment: EF 15% range, continue medical mgmt, s/p AICD revision due to malfunctioning AV leads (2) ESRD on hemodialysis Code(s): N18.6 - END STAGE RENAL DISEASE; Z99.2 - DEPENDENCE ON RENAL DIALYSIS Status: Chronic Comment: HD per Renal service (3) Mediastinal hematoma Code(s): S27.892A - CONTUSION OF OTH INTRATHORACIC ORGANS, INIT ENCNTR Status : Acute Comment: s/p AICD revision, appears to be stabilizing on CT chest, serial monitoring (4) Essential hypertension Code(s): I10 - ESSENTIAL (PRIMARY) HYPERTENSION Status: Chronic Comment: Resume home BP regimen, serial BP monitoring - Plan continue antibiotics, PT/OT, social service liaison, respiratory therapy, DVT proph w/ SCDs Stable currently -: Continue Rocephin -: HD per Renal service -: Resume Gabapentin 100mg BID -: AM lab: BMP, CBC * .
[2018-07-09] MEDS: Famotidine 20 MG TAB PO SCH (20:23)
[2018-07-09] MEDS: Atorvastatin Calcium 20 MG TAB PO SCH (21:10)
[2018-07-09] MEDS: Nortriptyline HCl 25 MG CAP PO SCH (21:10)
[2018-07-09] MEDS: Gabapentin 100 MG CAP PO SCH (21:10)
[2018-07-09] MEDS: Insulin NPH/Reg Insulin Hm 300 UNITS/3 ML VIAL SC SCH (21:19)
[2018-07-10] MEDS: cefTRIAXone\\ROCEPHIN 1 GM in Sodium Chloride 0.9% 100 ML IVPB SCH (01:58)
[2018-07-10 05:12] LABS: Anion Gap 21 mmol/L (10-20); BUN (Urea Nitrogen) 46 mg/dL (8.4-25.7); Calc. Creatinine Clearance 15 mL/min (70-130); Calcium 9.3 mg/dL (7.8-10.44); Carbon Dioxide 24 mmol/L (22-29); Chloride 98 mmol/L (98-107); Estimated GFR-MDRD 8; Glucose 93 mg/dL (70-105); Potassium 4.4 mmol/L (3.5-5.1); Sodium 139 mmol/L (136-145)
[2018-07-10 05:50] LABS: Band 4 % (5-11); Eosinophils 15 % (0-10); Hemoglobin 7.5 g/dL (14.0-18.0); Lymphocytes 17 % (21-51); MDiff Complete? YES; Mean Corpuscular HGB CONC 35.3 g/dL (32.0-36.0); Mean Corpuscular Hemoglobin 31.8 pg (27.0-31.0); Mean Corpuscular Volume 90.2 fL (78.0-98.0); Mean Platelet Volume 9.7 fL (7.4-10.4); Monocytes 4 % (0-10); Neutrophil 60 % (42-75); PLT Morphology Comment Appears Decreased; Platelet Count 103 thou/uL (130-400); RBC Distribution Width 14.9 % (11.5-14.5); Red Blood Cell (RBC) Count 2.37 mill/uL (4.70-6.10); White Blood Cell (WBC) Count 7.1 thou/uL (4.8-10.8)
[2018-07-10] MEDS: Levothyroxine Sodium 25 MCG TAB PO SCH (07:53)
[2018-07-10] MEDS: Carvedilol 6.25 MG TAB PO SCH ×2 (07:53→17:32)
[2018-07-10] MEDS: Docusate 100 MG CAP PO SCH ×2 (08:32→20:47)
[2018-07-10] MEDS: Allopurinol 100 MG TAB PO SCH (08:33)
[2018-07-10] MEDS: Cinacalcet HCl 30 MG TAB PO SCH (08:33)
[2018-07-10] MEDS: Gabapentin 100 MG CAP PO SCH ×2 (08:33→20:47)
[2018-07-10] MEDS: Folic Acid/Vit B Comp W-C PO SCH (08:37)
[2018-07-10] MEDS: Magnesium Oxide 250 MG TAB PO SCH (08:59)
--- NOTE | 2018-07-10 09:22 | PRG ---
DATE OF SERVICE: 07/10/2018 This morning he is awake, alert, responsive, less encephalopathic. End-stage dialysis patient. He i s status post anterior mediastinal hemorrhage from an AICD placement. PHYSICAL EXAMINATION: VITAL SIGNS: His pulse is 81, blood pressure 156/65, sats 100% on room air, respiration 17. His bro ther at the bedside who states he is going to go to the skilled nursing, he is going to probably wear hi s CPAP there. CHEST: Chest reveals decreased breath sounds, no wheezing. CARDIAC: Normal S1, S2. No gallops. ABDOMEN: Soft, no masses. Creatinine is 8.4. White count 10,000, H&H is 7 and 21. IMPRESSION: 1. Morbid obesity. 2. Sleep apnea. 3. Chronic renal failure. 4. Anterior mediastinal hematoma. PLAN: Continue supportive care. Continue BiPAP, nutrition, PT. We will follow.
[2018-07-10] MEDS: Insulin NPH/Reg Insulin Hm 300 UNITS/3 ML VIAL SC SCH ×2 (09:54→20:41)
--- NOTE | 2018-07-10 12:24 | PDOC.CTH ---
Cardiology Progress Note - Subjective EP progress note: Recurrent encephalopathy over the weekend. Requiring bilevel at times. hematoma at ICD implant site. Patient will wince while site is examined, otherwise he is not engaging or verbalizing to me. ICD site had pressure dressing. no discharge or oozing. - ROS not able to obtain ROS - Objective Vital Signs Temp Pulse Resp BP Pulse Ox 07/10/18 10:16 83 12 100 07/10/18 07:53 146/84 H 07/10/18 07:27 98.4 F 84 12 100 07/10/18 07:09 83 11 L 100 07/10/18 04:00 99 F 07/10/18 03:38 100 Weight 257 lb 7.999 oz 07/09/18 07/10/18 07/11/18 06:59 06:59 06:59 Intake Total 100 60 Output Total 60 0 Balance 100 0 0 - Physical Examination General/Neuro: NAD, other: (disoriented. not conversing.) Neck: no JVD present Lungs: unlabored respirations (on/off bilevel) Heart: RRR Abdomen: soft (obese) Other PE findings: incision CDI, hematoma present. - Telemetry Telemetry Rhythm: NSR - Labs Result Diagrams: 07/10/18 04:44 07/10/18 04:44 Troponin/CKMB CK-MB (CK-2) 1.4 ng/mL (0-6.6) 07/03/18 06:25 Troponin I 0.038 ng/mL (< 0.028) H 07/03/18 12:38 - Assessment/Plan 1. Malfunctioning A/V leads on ICD. Generator change on 07/07/18 with attempted lead revision. Currently set to VVI 40. All ICD therapies off as lead remain unchanged. Further revisions are not advised but if still strongly desired, this would absolutely need to be done in [place]. 2. Syncope, unknown etiology- thought to be hypotensive after HD vs Ventricular arrhythmia not captured by malfunctioning ICD 3. Metabolic encephalopathy- recurrent after procedure on Tuesday despite minimal sedation. Not verbalizing during exam. Restless in bed. 4. Suspected active cocaine use, anuric and unable to do UTS. 5. Mediastinal bleed s/p attempted SVC access for ICD lead revision. Stable by repeat CT exams over the weekend. 6. Hematoma at ICD implant site- pressure dressing in place and reinforced. Keep pressure dressing in place and change as needed to maintain adequate pressure. On ceftriaxone IV q24hr since 07/08. From post implant perspective, would like this to continue this until total of 5 doses received.
--- NOTE | 2018-07-10 19:39 | PDOC.PN ---
- Subjective Encounter Start Date: 07/10/18 Encounter Start Time: 19:10 Subjective: f/u for mediastinal hematoma s/p attempted AICD lead revision with stable -: CT chest. Intermittent BiPAP and AMS per nursing. - Objective Resuscitation Status: Resuscitation Status FULL:Full Resuscitation MAR Reviewed: Yes Vital Signs & Weight: Vital Signs (12 hours) Temp Pulse Resp BP Pulse Ox 07/10/18 18:19 83 16 98 07/10/18 17:32 146/84 H 07/10/18 14:18 78 14 07/10/18 12:00 98.7 F 07/10/18 10:16 83 12 100 07/10/18 07:53 146/84 H Weight Weight 257 lb 7.999 oz Most Recent Monitor Data Heart Rate from ECG 84 NIBP 146/66 NIBP BP-Mean 104 Respiration from ECG 16 SpO2 100 I&O: 07/09/18 07/10/18 07/11/18 06:59 06:59 06:59 Intake Total 100 60 480 Output Total 60 0 Balance 100 0 480 Result Diagrams: 07/10/18 04:44 07/10/18 04:44 Additional Labs: Accuchecks 07/10/18 07/10/18 07/10/18 15:43 11:04 04:42 POC Glucose 75 96 109 07/09/18 21:17 POC Glucose 99 Microbiology 07/03/18 09:21 Venous blood - Left Hand Blood Culture - Final NO GROWTH IN 5 DAYS 07/03/18 09:06 Venous blood - Right Hand Blood Culture - Final NO GROWTH IN 5 DAYS Laboratory Tests 07/04/18 07/05/18 07/07/18 03:47 05:01 09:08 Hgb 9.2 L 9.4 L Plt Count 90 L 83 L 83 L 07/08/18 07/08/18 01:40 14:27 Hgb 7.9 L 7.6 L Plt Count 98 L 94 L EKG Reviewed by me: Yes (Tele - SR) Phys Exam - Physical Examination Constitutional: NAD alert, responds minimally to questions HEENT: PERRLA, sclera anicteric, oral pharynx no lesions Neck: no nodes, no JVD, supple, full ROM few scattered rhonchi S1, S2 Cardiovascular: RRR, no significant murmur, no rub, gallop Gastrointestinal: soft, non-tender, no distention, positive bowel sounds Musculoskeletal: pulses present Neurological: normal sensation, moves all 4 limbs A x O x 2 Deviation from normal: hematoma at ICD site with dressing in place Skin: normal turgor, cap refill <2 seconds Dx/Plan (1) Metabolic encephalopathy Code(s): G93.41 - METABOLIC ENCEPHALOPATHY Status: Acute Comment: Suspect multifactorial given co-morbid status and ESRD, supportive mgmt, O2 prn (2) Ischemic cardiomyopathy Code(s): I25.5 - ISCHEMIC CARDIOMYOPATHY Status: Chronic Comment: EF 15% range, continue medical mgmt, s/p attempted AICD revision due to malfunctioning AV leads but unsuccessful, AICD off currently (3) ESRD on hemodialysis Code(s): N18.6 - END STAGE RENAL DISEASE; Z99.2 - DEPENDENCE ON RENAL DIALYSIS Status: Chronic Comment: HD per Renal service (4) Mediastinal hematoma Code(s): S27.892A - CONTUSION OF OTH INTRATHORACIC ORGANS, INIT ENCNTR Status : Acute Comment: s/p AICD revision, appears to be stabilizing on CT chest, serial monitoring (5) Essential hypertension Code(s): I10 - ESSENTIAL (PRIMARY) HYPERTENSION Status: Chronic Comment: Resume home BP regimen, serial BP monitoring - Plan continue antibiotics, PT/OT, licensed clinical social worker, respiratory therapy, DVT proph w/ SCDs Stable overall -: Continue O2 supplementation as clinically indicated -: AICD function off -: HD per Renal service -: AM lab: BMP, CBC * .
--- NOTE | 2018-07-10 19:53 | PRG ---
DATE OF SERVICE: 07/10/2018 SUBJECTIVE: The patient was seen and examined, seems to undergoing dialysis, seems to be somewhat co nfused, not able to follow. PHYSICAL EXAMINATION: VITAL SIGNS: Stable. Blood pressure 146/84, respiratory rate of 16, O2 saturation 98%. HEENT: Unremarkable. CARDIOVASCULAR: First and second heart sounds were heard. RESPIRATORY: Clear to auscultation. ABDOMEN: Digestive system revealed a benign abdomen. EXTREMITIES: No peripheral edema. NEUROLOGIC: The patient is somewhat confused. IMPRESSION: 1. End-stage renal disease, hemodialysis dependent. 2. Mental status change, query cause. 3. Anemia, partly due to acute blood loss anemia compounded by anemia of chronic kidney disease. 4. Further management to be dependent on the clinical course.
[2018-07-10] MEDS: Nortriptyline HCl 25 MG CAP PO SCH (20:47)
[2018-07-10] MEDS: Famotidine 20 MG TAB PO SCH (20:47)
[2018-07-10] MEDS: Atorvastatin Calcium 20 MG TAB PO SCH (20:47)
[2018-07-11] MEDS: cefTRIAXone\\ROCEPHIN 1 GM in Sodium Chloride 0.9% 100 ML IVPB SCH (00:39)
[2018-07-11 06:27] VITALS: BMI 38.6
[2018-07-11 07:53] LABS: Hemoglobin 8.1 g/dL (14.0-18.0); Mean Corpuscular Hemoglobin 30.9 pg (27.0-31.0); Mean Corpuscular Volume 90.8 fL (78.0-98.0); Mean Platelet Volume 9.5 fL (7.4-10.4); Platelet Count 130 thou/uL (130-400); RBC Distribution Width 15.5 % (11.5-14.5); Red Blood Cell (RBC) Count 2.62 mill/uL (4.70-6.10); White Blood Cell (WBC) Count 8.9 thou/uL (4.8-10.8)
[2018-07-11 08:14] LABS: Anion Gap 18 mmol/L (10-20); BUN (Urea Nitrogen) 32 mg/dL (8.4-25.7); Calc. Creatinine Clearance 19 mL/min (70-130); Calcium 9.7 mg/dL (7.8-10.44); Carbon Dioxide 28 mmol/L (22-29); Chloride 97 mmol/L (98-107); Estimated GFR-MDRD 10; Glucose 82 mg/dL (70-105); Potassium 4.1 mmol/L (3.5-5.1); Sodium 139 mmol/L (136-145)
[2018-07-11] MEDS: Carvedilol 6.25 MG TAB PO SCH ×2 (08:21→17:05)
[2018-07-11] MEDS: Levothyroxine Sodium 25 MCG TAB PO SCH (08:21)
[2018-07-11] MEDS: Allopurinol 100 MG TAB PO SCH (08:22)
[2018-07-11] MEDS: Magnesium Oxide 250 MG TAB PO SCH (08:22)
[2018-07-11] MEDS: Gabapentin 100 MG CAP PO SCH (08:22)
[2018-07-11] MEDS: Folic Acid/Vit B Comp W-C PO SCH (08:22)
[2018-07-11] MEDS: Docusate 100 MG CAP PO SCH ×2 (08:22→20:46)
[2018-07-11] MEDS: Cinacalcet HCl 30 MG TAB PO SCH (08:22)
[2018-07-11 08:25] LABS: Band 3 % (5-11); Eosinophils 8 % (0-10); Hypochromia SLIGHT = 6-15 cells (100X) (0-5/hpf); Lymphocytes 9 % (21-51); MDiff Complete? YES; Monocytes 15 % (0-10); Neutrophil 63 % (42-75); PLT Morphology Comment Appears Adequate; Polychromasia MODERATE = 3-4 cells (100X) (0-2/hpf)
[2018-07-11] MEDS: Insulin NPH/Reg Insulin Hm 300 UNITS/3 ML VIAL SC SCH ×2 (08:26→20:47)
[2018-07-11 09:28] LABS: Actual Bicarbonate (HCO3a) 27.2 mEq/L (22-28); Base Excess (BEa) 3.3 mEq/L (-2.0 to +3.0); CO2 Tension 38.4 mmHg (35.0-45.0); Hemoglobin (Hb) 9.3 g/dL (14.0-18.0); pH, Arterial 7.47 (7.35-7.45)
[2018-07-11 09:29] LABS: Calcium, Ionized 1.1 mmol/L (1.12-1.30); Puncture Site LBRACH
--- NOTE | 2018-07-11 11:05 | PRG ---
DATE OF SERVICE: 07/11/2018 SUBJECTIVE: This morning, he is awake, alert and responsive. OBJECTIVE: VITAL SIGNS: Sats are 100% on 2 liters, temperature 98, blood pressure 146/84. CHEST: Revealed decreased breath sounds, no wheezing. CARDIAC: Normal S1, S2. No gallops. ABDOMEN: Soft, no masses. LABORATORY DATA: PO2 is 104, pCO2 is 38, pH 7.74 , creatinine 6.8. IMPRESSION: Respiratory failure, renal failure, morbid obesity, sleep apnea, severe deconditioning a nd anemia. PLAN: From the pulmonary standpoint of view, continue nocturnal BiPAP. PT and supportive care. We will follow while in the ICU.
--- NOTE | 2018-07-11 19:56 | PRG ---
DATE OF SERVICE: 07/11/2018 The patient was seen and examined, seems a little bit more confused today, noted with the following v ital signs. PHYSICAL EXAMINATION: VITAL SIGNS: Blood pressure 146/84, respiratory rate of 16, pulse 72, O2 sat 100%. HEENT: Unremarkable. CARDIOVASCULAR: First and second heart sounds were heard. RESPIRATORY: Clear to auscultation. DIGESTIVE: Revealed a benign abdomen. EXTREMITIES: No peripheral edema. SKIN: No new gross rash. LYMPHATICS: No peripheral lymphadenopathy. IMPRESSION: 1. End-stage renal disease on hemodialysis. 2. Mental status change, query cause. 3. Anemia. PLAN: 1. The patient to continue with hemodialysis per his normal schedule with ultrafiltration as tolerat ed by hemodynamics. 2. Avoid any medication that has the potential to fix any mental status. 3. Further management to be dependent on the clinical course.
[2018-07-11] MEDS: Atorvastatin Calcium 20 MG TAB PO SCH (20:46)
[2018-07-11] MEDS: Famotidine 20 MG TAB PO SCH (20:46)
[2018-07-12] MEDS: cefTRIAXone\\ROCEPHIN 1 GM in Sodium Chloride 0.9% 100 ML IVPB SCH (00:28)
[2018-07-12] MEDS: Ondansetron HCl/PF 4 MG/2 ML Vial SLOW IVP PRN ×2 (06:00→13:35)
[2018-07-12 06:55] LABS: Hemoglobin 8.3 g/dL (14.0-18.0); Mean Corpuscular HGB CONC 34.4 g/dL (32.0-36.0); Mean Corpuscular Hemoglobin 31.6 pg (27.0-31.0); Mean Corpuscular Volume 91.9 fL (78.0-98.0); Mean Platelet Volume 9.4 fL (7.4-10.4); Platelet Count 130 thou/uL (130-400); RBC Distribution Width 15.8 % (11.5-14.5); Red Blood Cell (RBC) Count 2.64 mill/uL (4.70-6.10); White Blood Cell (WBC) Count 6.8 thou/uL (4.8-10.8)
[2018-07-12 07:05] LABS: Anion Gap 20 mmol/L (10-20); BUN (Urea Nitrogen) 41 mg/dL (8.4-25.7); Calc. Creatinine Clearance 16 mL/min (70-130); Carbon Dioxide 26 mmol/L (22-29); Chloride 97 mmol/L (98-107); Estimated GFR-MDRD 8; Glucose 88 mg/dL (70-105); Potassium 4.1 mmol/L (3.5-5.1); Sodium 139 mmol/L (136-145)
--- NOTE | 2018-07-12 08:17 | PRG ---
DATE OF SERVICE: 07/12/2018 This morning he is awake, alert, responsive. He is having difficulty putting his BiPAP on. PHYSICAL EXAMINATION: VITAL SIGNS: His sats are 99 on 2 liters, pulse 70, respiration rate 18, blood pressure 130/53. CHEST: No wheezing or crackles. CARDIAC: Normal S1, S2. No gallops. ABDOMEN: Soft, no masses. LABORATORY: His creatinine 8.43, he is being dialyzed. H&H is stable. IMPRESSION: 1. Chronic renal failure. 2. Morbid obesity. 3. Severe deconditioning. 4. Sleep apnea, poor compliance with his BiPAP. The patient can be transferred out of the ICU. Continue nocturnal BiPAP. I will follow.
[2018-07-12 08:20] LABS: MDiff Complete? YES; RBC Morphology Normal
[2018-07-12 08:26] LABS: Eosinophils 13 % (0-10); Lymphocytes 15 % (21-51); Monocytes 14 % (0-10)
[2018-07-12 08:27] LABS: Polychromasia SLIGHT = 2-3 cells (100X) (0-2/hpf)
[2018-07-12] MEDS: Levothyroxine Sodium 25 MCG TAB PO SCH (08:30)
[2018-07-12] MEDS: Carvedilol 6.25 MG TAB PO SCH ×2 (08:30→17:10)
[2018-07-12] MEDS: Folic Acid/Vit B Comp W-C PO SCH (08:30)
[2018-07-12] MEDS: Docusate 100 MG CAP PO SCH ×2 (08:31→21:21)
[2018-07-12] MEDS: Cinacalcet HCl 30 MG TAB PO SCH (08:31)
[2018-07-12] MEDS: Allopurinol 100 MG TAB PO SCH (08:31)
[2018-07-12] MEDS: Magnesium Oxide 250 MG TAB PO SCH (08:31)
[2018-07-12] MEDS: Insulin NPH/Reg Insulin Hm 300 UNITS/3 ML VIAL SC SCH ×2 (09:07→21:21)
--- NOTE | 2018-07-12 09:19 | PDOC.PN ---
- Subjective Encounter Start Date: 07/11/18 Encounter Start Time: 14:00 Subjective: f/u for AMS, ESRD with HD and mediastinal hematoma s/p attempted -: AICD lead revision. Overall stable but deconditioned. - Objective Resuscitation Status: Resuscitation Status FULL:Full Resuscitation MAR Reviewed: Yes Vital Signs & Weight: Vital Signs (12 hours) Temp Pulse Resp BP Pulse Ox 07/12/18 08:30 127/54 L 07/12/18 07:55 98.0 F 71 15 98 07/12/18 07:38 99 07/12/18 07:37 71 18 99 07/12/18 07:00 98.0 F 07/12/18 03:00 98 F 07/12/18 02:28 100 07/12/18 02:24 72 17 100 07/12/18 02:23 72 17 100 07/11/18 23:00 98.8 F 07/11/18 22:09 70 16 100 07/11/18 22:07 70 16 100 Weight Weight 254 lb 3.088 oz Most Recent Monitor Data Heart Rate from ECG 70 NIBP 129/60 NIBP BP-Mean 75 Respiration from ECG 3 SpO2 100 I&O: 07/11/18 07/12/18 07/13/18 06:59 06:59 06:59 Intake Total 480 1250 150 Output Total 100 250 0 Balance 380 1000 150 Result Diagrams: 07/12/18 06:34 07/12/18 06:34 Additional Labs: Accuchecks 07/12/18 07/12/18 07/11/18 06:34 00:30 20:45 POC Glucose 96 70 69 L 07/11/18 07/11/18 16:37 11:42 POC Glucose 68 L 65 L EKG Reviewed by me: Yes (Tele - SR) Phys Exam - Physical Examination alert, responds to questions HEENT: PERRLA, sclera anicteric, oral pharynx no lesions Neck: no nodes, no JVD, supple, full ROM Respiratory: no wheezing, no rales, no rhonchi, clear to auscultation bilateral S1, S2 Cardiovascular: RRR, no significant murmur, no rub, gallop obese Gastrointestinal: soft, non-tender, no distention, positive bowel sounds Musculoskeletal: no edema, pulses present Neurological: normal sensation, moves all 4 limbs Skin: no rash, normal turgor, cap refill <2 seconds Dx/Plan (1) Metabolic encephalopathy Code(s): G93.41 - METABOLIC ENCEPHALOPATHY Status: Acute Comment: Suspect multifactorial given co-morbid status and ESRD, supportive mgmt, O2 prn (2) Ischemic cardiomyopathy Code(s): I25.5 - ISCHEMIC CARDIOMYOPATHY Status: Chronic Comment: EF 15% range, continue medical mgmt, s/p attempted AICD revision due to malfunctioning AV leads but unsuccessful, AICD off currently (3) ESRD on hemodialysis Code(s): N18.6 - END STAGE RENAL DISEASE; Z99.2 - DEPENDENCE ON RENAL DIALYSIS Status: Chronic Comment: HD per Renal service (4) Mediastinal hematoma Code(s): S27.892A - CONTUSION OF OTH INTRATHORACIC ORGANS, INIT ENCNTR Status : Acute Comment: s/p AICD revision, appears to be stabilizing on CT chest, serial monitoring, no intervention warranted (5) Essential hypertension Code(s): I10 - ESSENTIAL (PRIMARY) HYPERTENSION Status: Chronic Comment: Resume home BP regimen, serial BP monitoring - Plan PT/OT, social science analyst, respiratory therapy, DVT proph w/SCDs Stable overall -: PT for mobilization -: CM for SNF options -: HD per Renal service -: Nocturnal BiPAP * Likely transfer to medical floor in 24h * AM lab: BMP, CBC
--- NOTE | 2018-07-12 18:35 | PDOC.PN ---
- Subjective Encounter Start Date: 07/12/18 Encounter Start Time: 11:50 Subjective: f/u for ESRD on current HD. Remains confused and lethargic. + Nocturnal -: BiPAP. Family reports pt near baseline functional status. - Objective Resuscitation Status: Resuscitation Status FULL:Full Resuscitation MAR Reviewed: Yes Vital Signs & Weight: Vital Signs (12 hours) Temp Pulse Resp BP Pulse Ox 07/12/18 17:10 135/74 07/12/18 15:00 98.0 F 07/12/18 14:54 73 16 99 07/12/18 11:52 97.9 F 07/12/18 11:00 97.9 F 07/12/18 10:50 74 15 99 07/12/18 08:30 127/54 L 07/12/18 07:55 98.0 F 71 15 98 07/12/18 07:38 99 07/12/18 07:37 71 18 99 07/12/18 07:00 98.0 F Weight Weight 254 lb 3.088 oz Most Recent Monitor Data Heart Rate from ECG 72 NIBP 114/50 NIBP BP-Mean 76 Respiration from ECG 6 SpO2 100 I&O: 07/11/18 07/12/18 07/13/18 06:59 06:59 06:59 Intake Total 480 1250 510 Output Total 100 250 0 Balance 380 1000 510 Result Diagrams: 07/12/18 06:34 07/12/18 06:34 Additional Labs: Accuchecks 07/12/18 07/12/18 07/12/18 15:57 11:12 06:34 POC Glucose 93 94 96 07/12/18 07/11/18 07/11/18 00:30 20:45 16:37 POC Glucose 70 69 L 68 L Microbiology 07/03/18 09:21 Venous blood - Left Hand Blood Culture - Final NO GROWTH IN 5 DAYS 07/03/18 09:06 Venous blood - Right Hand Blood Culture - Final NO GROWTH IN 5 DAYS Laboratory Tests 07/04/18 07/05/18 07/07/18 03:47 05:01 09:08 Hgb 9.2 L 9.4 L Plt Count 90 L 83 L 83 L 07/08/18 07/08/18 01:40 14:27 Hgb 7.9 L 7.6 L Plt Count 98 L 94 L EKG Reviewed by me: Yes (Tele - SR) Phys Exam - Physical Examination lethargic, opens eyes briefly to name HEENT: PERRLA, sclera anicteric, oral pharynx no lesions Neck: no nodes, no JVD, supple, full ROM diminished in bases S1, S2 Cardiovascular: RRR, no significant murmur, no rub, gallop obese Gastrointestinal: soft, non-tender, no distention, positive bowel sounds Musculoskeletal: pulses present, edema present Neurological: moves all 4 limbs Skin: no rash, normal turgor, cap refill <2 seconds Dx/Plan (1) Metabolic encephalopathy Code(s): G93.41 - METABOLIC ENCEPHALOPATHY Status: Acute Comment: Suspect multifactorial given co-morbid status and ESRD, supportive mgmt, O2 prn (2) Ischemic cardiomyopathy Code(s): I25.5 - ISCHEMIC CARDIOMYOPATHY Status: Chronic Comment: EF 15% range, continue medical mgmt, s/p attempted AICD revision due to malfunctioning AV leads but unsuccessful, AICD off currently (3) ESRD on hemodialysis Code(s): N18.6 - END STAGE RENAL DISEASE; Z99.2 - DEPENDENCE ON RENAL DIALYSIS Status: Chronic Comment: HD per Renal service (4) Mediastinal hematoma Code(s): S27.892A - CONTUSION OF OTH INTRATHORACIC ORGANS, INIT ENCNTR Status : Acute Comment: s/p AICD revision, appears to be stabilizing on CT chest, serial monitoring, no intervention warranted (5) Essential hypertension Code(s): I10 - ESSENTIAL (PRIMARY) HYPERTENSION Status: Chronic Comment: Resume home BP regimen, serial BP monitoring - Plan plan discussed w/ family, PT/OT, social media marketing specialist, respiratory therapy, DVT proph w/SCDs Stable overall -: HD today -: D/C Rocephin -: Nocturnal BiPAP -: Transfer to medical floor * AM lab: BMP, CBC
--- NOTE | 2018-07-12 19:46 | PRG ---
DATE OF SERVICE: 07/12/2018 The patient was seen and examined today and seems to be doing much better after stopping some neurotr opic medications including amitriptyline and Neurontin. The patient noted with following vital signs . PHYSICAL EXAMINATION: VITAL SIGNS: Blood pressure 135/74, pulse 73, respiratory rate 16, O2 sat 100% on 2 liters nasal can nula. HEENT: Unremarkable with moist oral mucosa. NECK: Supple. No conjunctival injection or icterus. CARDIOVASCULAR: First and second heart sounds were heard. RESPIRATORY: Clear to auscultation. DIGESTIVE: Revealed a benign abdomen with positive bowel sounds. EXTREMITIES: No peripheral edema. SKIN: No new gross rash. LYMPHATICS: No peripheral lymphadenopathy. LABORATORY INVESTIGATION: BUN of 41 with a creatinine of 8.43. CBC showed hemoglobin of 8.3, and pl atelet 130,000. IMPRESSION: 1. End-stage renal disease, hemodialysis dependent. 2. Encephalopathy, much improved, status post discontinuation of amitriptyline and Neurontin. 3. Anemia seems to be improving and stabilized. PLAN: 1. We will continue with hemodialysis as per current schedule of Tuesday, Tuesday and Tuesday. 2. We will permanently discontinue amitriptyline and Neurontin. 3. We will limit blood draws to avoid iatrogenic anemia. 4. We will recommend drawing blood only as needed and limited only during dialysis. 5. Further management to be dependent on the clinical course.
[2018-07-12] MEDS: Famotidine 20 MG TAB PO SCH (21:21)
[2018-07-12] MEDS: Atorvastatin Calcium 20 MG TAB PO SCH (21:21)
[2018-07-13] MEDS ORDERED: Levothyroxine Sodium 25 MCG TAB PO SCH (06:00)
[2018-07-13 07:37] VITALS: BP 125/65; TEMP 97.8
[2018-07-13] MEDS: Carvedilol 6.25 MG TAB PO SCH (08:17)
[2018-07-13] MEDS: Magnesium Oxide 250 MG TAB PO SCH (08:18)
[2018-07-13] MEDS: Allopurinol 100 MG TAB PO SCH (08:18)
[2018-07-13] MEDS: Folic Acid/Vit B Comp W-C PO SCH (08:18)
[2018-07-13] MEDS: Cinacalcet HCl 30 MG TAB PO SCH (08:18)
[2018-07-13] MEDS: Insulin NPH/Reg Insulin Hm 300 UNITS/3 ML VIAL SC SCH (08:19)
[2018-07-13] MEDS: Docusate 100 MG CAP PO SCH (08:20)
--- NOTE | 2018-07-13 10:39 | PDOC.CTH ---
Cardiology Progress Note - Subjective EP progress note: Patient wanting to leave today, either by discharge or AMA. Appears to be at baseline mental status. Brother is with him. No new cardiac concerns or complaints today. - Objective Vital Signs Temp Pulse Resp BP Pulse Ox 07/13/18 07:36 97.8 F 71 18 125/65 93 L 07/13/18 06:50 96 07/13/18 06:49 77 20 96 07/13/18 04:00 98.3 F 70 20 113/37 L 100 07/13/18 02:30 70 07/13/18 02:29 68 25 H 100 07/13/18 00:00 98.4 F 72 16 107/53 L 100 Weight 243 lb 12.8 oz 07/12/18 07/13/18 07/14/18 06:59 06:59 06:59 Intake Total 1250 1560 Output Total 250 100 Balance 1000 1460 - Physical Examination General/Neuro: alert & oriented x3, NAD Neck: carotid US brisk, no JVD present Lungs: CTA, unlabored respirations Heart: PMI normal, RRR Abdomen: soft - Telemetry Telemetry Rhythm: NSR - Labs Result Diagrams: 07/12/18 06:34 07/12/18 06:34 Troponin/CKMB CK-MB (CK-2) 1.4 ng/mL (0-6.6) 07/03/18 06:25 Troponin I 0.038 ng/mL (< 0.028) H 07/03/18 12:38 - Assessment/Plan 1. Malfunctioning A/V leads on ICD. Generator change on 07/07/18 with attempted lead revision. Currently set to VVI 40. All ICD therapies off as lead remain unchanged. 2. Syncope, unknown etiology- thought to be hypotensive after HD vs Ventricular arrhythmia not captured by malfunctioning ICD 3. Metabolic encephalopathy- Resolved. Appears to be at baseline mental status 4. Suspected active cocaine use, anuric and unable to do UTS. 5. Mediastinal bleed s/p attempted SVC access for ICD lead revision. Stable by repeat CT exams over the weekend. 6. Hematoma at ICD implant site- Less taut/swollen now. Incision without drainage, edges well approximated. Received 5 days IV ceftriaxone post implant. Further lead revision options that could be attempted in [place] were discussed with patient who has declined and wishes to leave device functioning as a back up pacemaker. TCA will arrange to see patient back in clinic in 1-2 weeks for wound check
--- NOTE | 2018-07-13 10:54 | DIS ---
DATE OF ADMISSION: 07/03/2018 DATE OF DISCHARGE: 07/13/2018 DISCHARGE DIAGNOSES: 1. Toxic metabolic encephalopathy, multifactorial, improved. 2. Ischemic cardiomyopathy with ejection fraction of 10%-15%. 3. End-stage renal disease with hemodialysis. 4. Mediastinal hematoma status post unsuccessful AICD lead revision, stable. 5. Hypertension, stable. 6. Status post acute hypoxic hypercapnic respiratory failure. CONSULTATIONS: Dr. Huerta and Dr. Whitley with Pulmonology Critical Care service. Dr. Tellez with C ardiology Service. Dr. Emerson with Electrophysiology Service. Dr. Brandon August with Nephrology Service. PERTINENT LABORATORY DATA AND X-RAY FINDINGS: Creatinine ranged between 5.06-8.83, lactic acid level 0.7. Serum ammonia level ranged between 27-59. Prolactin level 17.05. Magnesium level 2.5. CBC s howed hemoglobin ranging between 7.4-10.0. Beta hydroxybutyrate level 0.34. Hepatitis B surface ant igen nonreactive on 07/03/2018. Blood cultures x2 from 07/03/2018 showed no growth at 5 days. Gibson ble chest x-ray dated 07/03/2018 showed left-sided ICD device in place. No focal consolidation or ac geovani process identified. CT of the brain without contrast dated 07/03/2018 showed no acute intracrani al process. Chronic ischemic white matter changes noted. Portable chest x-ray dated 07/04/2018 show ed mild prominence of pulmonary vasculature. CT of the chest dated 07/07/2018 showed dual lead left subclavian AICD device in place. Discrete hematoma noted in the anterior superior mediastinum. Flui d surrounding the power pack of the left subclavian AICD device related to recent replacement and pos t-surgical changes. CT of the chest dated 07/08/2018 showed extravasation of contrast into the anter ior mediastinum. Hematoma surrounding the power pack in the anterior left chest noted. HOSPITAL COURSE: Patient was initially admitted after presenting with questionable syncopal episode during maintenance hemodialysis. The patient with extensive coronary artery history and severe ische padmini cardiomyopathy presenting with altered mentation and questionable syncopal event. The patient wa s initially noted with acute hypoxic hypercapnic respiratory failure and diagnosed with metabolic enc ephalopathy of unclear etiology. The patient was initially treated with oxygen supplementation and g eneral pulmonary supportive measures after evaluation by the Pulmonology Service. The patient underw ent extensive evaluation including neuroimaging showing no acute central neurologic process. Likely multifactorial encephalopathy including metabolic component as well as hypoxemia. The patient was sl ow to clinically improve and continued on maintenance hemodialysis during the hospital course. The p atient did undergo evaluation by the Cardiology Service as well as Electrophysiology Service after co ncern for malfunctioning ICD device. The patient underwent attempted lead revision by the EP service ; however, this was unsuccessful. The patient was noted with hemodynamic instability during the proc edure with hypotension and an adequate monitoring during the procedure. Postoperatively, the patient was noted with increasing hematoma at the generator site of the chest wall, undergoing CT evaluation showing hematoma. The patient was also noted with hematoma in the anterior mediastinal region with recommendations for serial exams and monitoring of progression. The hematoma stabilized with serial monitoring without further intervention needed. The patient again remained confused with altered men tation for prolonged portion of the hospital course with adjustment to his chronic medication regimen with discontinuation of gabapentin and amitriptyline. The patient did slowly clinically improve and was more alert and continued on maintenance hemodialysis at the discretion of the Nephrology Service . Overall, the patient achieved baseline functional status by the time of discharge and was ready to transfer back to [facility] where patient is a current resident on 8. I have examined the patient at the time of discharge and discussed followup instructions. The pa juannt overall clinically stable and ready for discharge on 07/13/2018. DISCHARGE MEDICATIONS: 1. Allopurinol 100 mg p.o. daily. 2. Coreg 6.25 mg p.o. b.i.d. 3. Sensipar 30 mg p.o. daily. 4. Cardura 8 mg p.o. daily. 5. Multivitamin with folic acid 1 tablet p.o. daily. 6. NPH insulin 20 units subcutaneously q.a.m. and 10 units subcutaneously at bedtime. 7. Isosorbide mononitrate 60 mg p.o. daily. 8. Levothyroxine 25 mcg p.o. daily. 9. Sucroferric 500 mg p.o. t.i.d. 10. Tramadol 25 mg p.o. daily p.r.n. pain. 11. Enteric-coated aspirin 81 mg p.o. daily. 12. Lipitor 20 mg p.o. at bedtime. 13. Magnesium oxide 250 mg p.o. daily. FOLLOWUP: The patient may follow up with Dr. Lagunas at [facility]. The patie nt will follow up with Dr. Huerta with Pulmonology Service for a sleep study. CONDITION ON DISCHARGE: Guarded. ACTIVITY: Ad lissy. Mobilization with wheelchair. DIET: Heart healthy ADA and renal. SPECIAL INSTRUCTIONS: ОЛЬГА inhibitors and ARBs contraindicated due to end-stage renal disease. CODE STATUS: Full. DISPOSITION: Discharged to [facility] on 07/13/2018. Total time in preparing and coordinating discharge is 38 minutes.
--- NOTE | 2018-07-13 11:50 | PRG ---
DATE OF SERVICE: 07/13/2018 SUBJECTIVE: This morning, he is very agitated. He wants to go home. His brother is at the bedside. He is trying toTALK to him to stay He has no place to go home. He has no home. He is apparently trying to get him to a skilled nursing. Securities are at the bedside. His coal grader is here at the bedside. PHYSICAL EXAMINATION: VITAL SIGNS:94% on room air, respiration rate 18, temperature 97, blood pressure 125/65. CHEST: No wheezing. CARDIAC: Normal S1, S2, no gallops. ABDOMEN: Soft. No masses. IMPRESSION: End end-stage chronic obstructive pulmonary disease, sleep apnea, poor compliance, morbid obesity, renal failure. PLAN: Once able to arrange placement, he can probably be transferred there. His long-term prognosis remains grave. His encephalopathy is better. Clearly, his prognosis is grave. We will follow while in the hospital. JENNIFER
--- NOTE | 2018-07-15 10:55 | EKG ---
Test Reason : Blood Pressure : / mmHG Vent. Rate : 064 BPM Atrial Rate : 064 BPM P-R Int : 136 ms QRS Dur : 040 ms QT Int : 366 ms P-R-T Axes : 010 000 126 degrees QTc Int : 377 ms Normal sinus rhythm Left atrial enlargement Indeterminate axis Pulmonary disease pattern ST elevation consider inferior injury or acute infarct Consider right ventricular involvement in acute inferior infarct Abnormal ECG Confirmed by JENNIFFER MANCILLA DO ([id number]), avid editor JENNA BURR ([id number]) on 07/15/2018 10:55:08 AM Referred By: Confirmed By:JENNIFFER MANCILLA DO
== END 2018-07-13 14:05 | DRG 245 ==
LOC: ERS 06:13 → 2NO 08:20 → OBSVTOIN 09:48 → IMCU/EMU 11:51 → 2NO 07-04 16:58 → CCU 07-07 16:51 → IMCU/EMU 07-12 16:12
PROVIDERS: ADMIT Internal Medicine; ATTEND Internal Medicine
PROC: 5A09357 Assistance with Respiratory Ventilation, Less than 24 Consecutive Hours, Continuous Positive Airway Pressure (ICD-10-PCS; principal; 2018-07-03)
PROC: 5A1D70Z Performance of Urinary Filtration, Intermittent, Less than 6 Hours Per Day (ICD-10-PCS; 2018-07-03)
PROC: 0JH608Z Insertion of Defibrillator Generator into Chest Subcutaneous Tissue and Fascia, Open Approach (ICD-10-PCS; 2018-07-07)
PROC: 0JPT0PZ Removal of Cardiac Rhythm Related Device from Trunk Subcutaneous Tissue and Fascia, Open Approach (ICD-10-PCS; 2018-07-07)
PROC: 06HM33Z Insertion of Infusion Device into Right Femoral Vein, Percutaneous Approach (ICD-10-PCS; 2018-07-07)
DX: T82.110A Breakdown (mechanical) of cardiac electrode, initial encounter (principal); J96.01 Acute respiratory failure with hypoxia; N18.6 End stage renal disease; G92 Toxic encephalopathy; J96.02 Acute respiratory failure with hypercapnia; I13.2 Hypertensive heart and chronic kidney disease with heart failure and with stage 5 chronic kidney disease, or end stage renal disease; I50.22 Chronic systolic (congestive) heart failure; I24.8 Other forms of acute ischemic heart disease; I69.351 Hemiplegia and hemiparesis following cerebral infarction affecting right dominant side; T80.818A Extravasation of other vesicant agent, initial encounter; M96.841 Postprocedural hematoma of a musculoskeletal structure following other procedure; D62 Acute posthemorrhagic anemia; R55 Syncope and collapse; D63.1 Anemia in chronic kidney disease; Z45.02 Encounter for adjustment and management of automatic implantable cardiac defibrillator; E11.22 Type 2 diabetes mellitus with diabetic chronic kidney disease; R04.0 Epistaxis; E78.00 Pure hypercholesterolemia, unspecified; E87.5 Hyperkalemia; F17.210 Nicotine dependence, cigarettes, uncomplicated; E66.01 Morbid (severe) obesity due to excess calories; G47.33 Obstructive sleep apnea (adult) (pediatric); I25.5 Ischemic cardiomyopathy; J44.9 Chronic obstructive pulmonary disease, unspecified; I25.10 Atherosclerotic heart disease of native coronary artery without angina pectoris; Z99.2 Dependence on renal dialysis; Z68.37 Body mass index [BMI] 37.0-37.9, adult; Z91.14 Patient's other noncompliance with medication regimen; Z79.82 Long term (current) use of aspirin; Z79.4 Long term (current) use of insulin; Y83.8 Other surgical procedures as the cause of abnormal reaction of the patient, or of later complication, without mention of misadventure at the time of the procedure
CPT/HCPCS: 33263; 36415; 36416; 70450; 71045; 71260; 75820; 76942; 80048; 80053; 82010; 82140; 82330; 82553; 82803; 82805; 83605; 83735; 84146; 84484; 85025; 85610; 86850; 86900; 86901; 87040; 87340; 90935; 93005; 93798; 94640; 94660; 95816; 95819; 96374; 96375; 99152; 99153; 99406; A4216; C1721; C1769; C1898; G0257; G8978-GP-CM; G8979-GP-CK; J0696; J1644; J1815; J2001; J2060; J2250; J2405; J2704; J3010; J3490; J7050; J7611; J7620; S0028